=== PATIENT | male | born 1970 | race Caucasian/White ===

== ENCOUNTER 2016-09-27 18:40 | Emergency (ER) | payer OTHER ==
[~2016-09-27] VITALS: Ht 185.4 cm; Wt 95.2 kg
[~2016-09-27 18:40] MED LIST: GABA-113 PO; NVLGI/PEN SC; PRVC/40 PO
[2016-09-27] MEDS ORDERED: INSDGI SC (18:42)
[2016-09-27] MEDS ORDERED: LEVO200T PO (18:42)
[2016-09-27 18:53] VITALS: TEMP 37.5; Ht 185.4 cm; Wt 95.2 kg
[2016-09-27] MEDS ORDERED: AZITHROMYCIN 250 MG TAB PO ONE (19:30)
--- NOTE | 2016-09-27 19:33 | EMERGENCY ROOM VISIT NOTE ---
History Report prepared by Jewels: Devante Greenberg Under the Supervision of: Dr. Jayshree Burciaga M.D. First contact with patient: 19:20 Chief Complaint: RESPIRATORY DISTRESS Stated Complaint: TROUBLE BREATHING, COUGHING Nursing Triage Summary: pt states "I'm dying, my eyes hurt, my head hurts, I'm assuming from sinus pressure, I have trouble breathing and swallowing" Symptoms x 2 weeks. History of Present Illness The patient is a 46 year old male who presents to the Emergency Room with complaints of persistent shortness of breath for the past two weeks. The patient also complains of chest heaviness, coughing, headache, and difficulty swallowing. He has not been sleeping well secondary to his symptoms. The patient has a history of diabetes. He does not smoke. 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 Source of History: patient Onset: two weeks Position: other (respiratory) Quality: other (short of breath) Timing: other (persistent) Associated Symptoms: + chest pain (heaviness), + cough, + headache Review of Systems See HPI for pertinent positives & negatives. A total of 10 systems reviewed and were otherwise negative. Past Medical & Surgical Medical Problems: (1) Diabetes (2) Foot pain (3) Metatarsal bone fracture Surgical Problems: (1) H/O knee surgery Family History No pertinent family history Social History Smoking Status: Never Smoker Drug Use: none Marital Status: Housing Status: lives with family Occupation Status: employed Current/Historical Medications Scheduled Azithromycin (Zithromax), 250 MG PO DAILY Insulin Aspart (Novolog Flexpen), 1 DOSE SC TID Insulin Glargine (Lantus), 35-40 UNITS SC QAM Levothyroxine Sodium (Synthroid), 200 MCG PO QAM Allergies Coded Allergies: Latex1 -Allergic Contact Dermititis (Verified Allergy, Mild, red, 09/27/16) Physical Exam Vital Signs Date Time Temp Pulse Resp B/P Pulse Ox O2 Delivery O2 Flow Rate FiO2 09/27/16 20:26 88 16 121/70 97 09/27/16 18:53 37.5 90 17 133/76 98 Room Air Physical Exam CONSTITUTIONAL: Non-toxic in appearance. HEENT: No icterus, moist mucous membranes NECK: No meningismus, trachea is midline. CARDIOVASCULAR: Regular rate, normal perfusion RESPIRATORY: Unlabored breathing. Clear to auscultation. Lungs are clear. Occasional coughing. GASTROINTESTINAL: Non-tender GENITOURINARY: No flank tenderness MUSCULOSKELETAL: Full range of motion NEUROLOGIC: No acute gross focal deficits. PSYCHIATRIC: Normal affect SKIN: Normal for ethnicity. Medical Decision & Procedures ER Provider Diagnostic Interpretation: X-ray results as stated below per interpretation by me and the radiologist. TWO VIEW CHEST CLINICAL HISTORY: Cough. FINDINGS: PA and lateral chest radiographs are compared to study dated 10/17/2015. The cardiomediastinal silhouette is unremarkable. The lungs and pleural spaces are clear. There is no pneumothorax. The bony thorax appears intact. IMPRESSION: No active disease in the chest. Electronically signed by: Mateus Craig M.D. 09/27/2016 8:01 PM Medications Administered Medications (Trade) Dose Ordered Sig/Sole Route Start Time Stop Time Status Last Admin Dose Admin Azithromycin (Zithromax Tab) 500 mg NOW ONCE PO 09/27/16 19:30 09/27/16 19:31 DC 09/27/16 19:44 500 MG ED Course 1924: Past medical records reviewed. The patient was evaluated in room B8. A complete history and physical examination was performed. 1930: Azithromycin 500 mg PO. 2019: Reevaluated the patient. Explained everything with him. He verbalized understanding and agreement of the treatment plan. The patient is ready for discharge. Medical Decision Differential diagnosis includes pneumonia, bronchitis, upper respiratory infection. 46-year-old presented to the emergency room for evaluation 2 weeks of upper respiratory complaints without fever or other systemic concerns. Lungs were clear chest x-ray negative for pneumonia we discussed likely diagnosis of viral syndrome but given 2 weeks of symptoms Zithromax was ordered. Impression Primary Impression: Bronchitis Scribe Attestation The scribe's documentation has been prepared under my direction and personally reviewed by me in its entirety. I confirm that the note above accurately reflects all work, treatment, procedures, and medical decision making performed by me. Departure Information Dispostion Home / Self-Care Prescriptions Azithromycin (Zithromax) 250 Mg Tab 250 MG PO DAILY, #4 TAB Prov: Jayshree Burciaga MD 09/27/16 Referrals Ana Marion DO (PCP) Forms HOME CARE DOCUMENTATION FORM, IMPORTANT VISIT INFORMATION Patient Instructions A Signature Page, ED Bronchitis Abx Tx, My [facility]
--- NOTE | 2016-09-27 20:02 | DIAGNOSTIC IMAGING REPORT ---
TWO VIEW CHEST CLINICAL HISTORY: Cough. FINDINGS: PA and lateral chest radiographs are compared to study dated 10/17/2015. The cardiomediastinal silhouette is unremarkable. The lungs and pleural spaces are clear. There is no pneumothorax. The bony thorax appears intact. IMPRESSION: No active disease in the chest. Electronically signed by: Mateus Craig M.D. 09/27/2016 8:01 PM
[2016-09-27] MEDS ORDERED: AZIT250T PO (20:22)
[2016-09-27 20:26] VITALS: BP 121/70; PULSE 88; O2SAT 97
== END 2016-09-27 20:27 | disposition home or self-care (01) ==
LOC: C.EDB 18:42
DX: J40 Bronchitis, not specified as acute or chronic (principal); E11.9 Type 2 diabetes mellitus without complications; Z79.4 Long term (current) use of insulin; Z91.040 Latex allergy status

== ENCOUNTER 2017-03-20 21:47 | Emergency (ER) | payer OTHER ==
[~2017-03-20] VITALS: Ht 175.3 cm; Wt 97.0 kg
[~2017-03-20 21:47] MED LIST changes: +AZIT250T PO; -GABA-113 PO; +INSDGI SC; +LEVO200T PO; -PRVC/40 PO
[2017-03-20 21:50] VITALS: BP 160/93; PULSE 88; TEMP 36.7; O2SAT 98; Ht 175.3 cm; Wt 97.0 kg
[2017-03-20] MEDS ORDERED: ALUMINUM/MAGNESIUM SUSP 30 ML UDC PO STA (22:02)
[2017-03-20] MEDS ORDERED: LIDOCAINE HCL 2% VISC SOLN 20 ML UDC PO STA (22:02)
[2017-03-20] MEDS ORDERED: INHALER INH (22:17)
--- NOTE | 2017-03-21 04:08 | EMERGENCY ROOM VISIT NOTE ---
History First contact with patient: 21:54 Chief Complaint: OTHER COMPLAINT Stated Complaint: ALLERGIC REACTION,TROUBLE BREATHING EARLIER History of Present Illness The patient is a 46 year old male who presents to the Emergency Room with complaints of throat discomfort after eating pizza that was sprayed with bug spray by himself on accident. Patient sprayed his house for bugs and ate pizza and then left the pizza and spreads more. He then ate the pizza tonight and felt some discomfort in his throat like heartburn. Patient called poison control and was advised this is safe. He came here for further evaluation and treatment. Patient denies chest pain, dyspnea, fever, chills, facial swelling, abdominal pain, vomiting, diarrhea. Patient states since then he's had a fruit cocktail chicken nuggets and fluids. Review of Systems See HPI for pertinent positives & negatives. A total of 10 systems reviewed and were otherwise negative. Past Medical/Surgical History Medical Problems: (1) Diabetes (2) Foot pain (3) Metatarsal bone fracture Surgical Problems: (1) H/O knee surgery Family History No pertinent family history Social History Smoking Status: Never Smoker Drug Use: none Marital Status: Housing Status: lives with family Occupation Status: employed Current/Historical Medications Scheduled Insulin Aspart (Novolog Flexpen), 1 DOSE SC TID Insulin Glargine (Lantus), 35-40 UNITS SC QAM Levothyroxine Sodium (Synthroid), 200 MCG PO QAM Scheduled PRN [Inhaler], 1-2 PUFFS INH Q4-6H PRN for SOB/Wheezing Allergies Coded Allergies: Latex1 -Allergic Contact Dermititis (Verified Allergy, Mild, red, 03/20/17) Physical Exam Vital Signs Date Time Temp Pulse Resp B/P (MAP) Pulse Ox O2 Delivery O2 Flow Rate FiO2 03/20/17 21:50 36.7 88 18 160/93 98 Room Air Pain Rating (0-10): 0 Physical Exam VITALS: Vitals are noted on the nurse's note and reviewed by myself. Vital signs stable. GENERAL: Pleasant male speaking in full sentences, in no acute distress, nondiaphoretic, well-developed well-nourished. SKIN: The skin was without rashes, erythema, edema, or bruising. There is no tenting of the skin. Capillary reflex less than 2 seconds. HEAD: Normocephalic atraumatic. EARS: External auditory canals clear, tympanic membranes pearly frias without erythema or effusion bilaterally. EYES: Pupils equal round and reactive to light and accommodation. Conjunctivae without injection, sclerae without icterus. Extraocular movements intact. NOSE: Patent, turbinates without inflammation or discharge. MOUTH: Mucous membranes moist. Pharynx without erythema or exudate. Uvula midline. Airway patent. Tongue does not deviate. NECK: Supple without nuchal rigidity. No lymphadenopathy. No thyromegaly. Cervical spine is nontender. No JVD. HEART: Regular rate and rhythm without murmurs gallops or rubs. LUNGS: Clear to auscultation bilaterally without wheezes, rales or rhonchi. No dullness to percussion. No retractions or accessory muscle use. ABDOMEN: Positive bowel sounds x 4. Normal tympanic percussion. Soft, nontender, without masses or organomegaly. Carey sign negative. No guarding or rebound tenderness. MUSCULOSKELETAL: No muscle atrophy, erythema, or edema noted. NEURO: Patient was alert and oriented to person place and time. Normal sensation to light and sharp touch. No focal neurological deficits. Medical Decision & Procedures Medications Administered Medications (Trade) Dose Ordered Sig/Sole Route Start Time Stop Time Status Last Admin Dose Admin Lidocaine HCl (Viscous Lidocaine 2% Soln) 10 ml NOW STAT PO 03/20/17 22:02 03/20/17 22:03 DC 03/20/17 22:13 10 ML Al Hydroxide/Mg Hydroxide (Maalox Susp) 30 ml NOW STAT PO 03/20/17 22:02 03/20/17 22:03 DC 03/20/17 22:13 30 ML ED Course Prior records reviewed and summarized as above. Triage Nursing notes reviewed. Additional history obtained from family The patient's history was concerning for possible chemical exposure Differential diagnosis: Etiologies such as chemical exposure, allergic reaction, reflux, as well as others were entertained.. Physical examination: The physical examination was consistent with mild chemical exposure ER treatment provided: GI cocktail On reassessment the patient felt better. Diagnostics interpreted by me: Consultation: A consultation was placed with the poison control. The case was discussed and diagnostics were reviewed. They state this is a safe substance of the bug spray of Diatomaceous Earth. This appears to be isolated while chemical exposure from inhalation and ingestion. Patient is strongly encouraged to stay at his son's house for next few days and to always wear a mask when he uses aerosol or any other chemicals. He was advised to follow-up family care in a few days or here in the ER sooner for chest pain, difficulty breathing, difficulty swelling, worsening signs or symptoms or as needed. Patient was neurovascularly and neurologically intact. He was swallowing without difficulties. He is well-appearing. He requested to leave. By the evaluation outlined above emergent etiologies such as airway compromise, allergic reaction, as well as others were deemed relatively unlikely. The pt informed about the findings as listed above. All questions were answered and pleased with the treatment. Return instructions were outlined and the patient was discharged in stable condition. Referral: The patient was referred back to primary care physician for follow-up in 2 to 3 days for a recheck of the current condition. Medical Decision As above Impression Primary Impression: Exposure to chemical irritant Departure Information Dispostion Home / Self-Care Condition GOOD Forms WORK / SCHOOL INSTRUCTIONS, HOME CARE DOCUMENTATION FORM, IMPORTANT VISIT INFORMATION Patient Instructions My [employer] Additional Instructions Always wear a mask when using aerosol products. Stay at your son's house for the next 2 days. Follow-up with family care in 2-3 days. Return to ER sooner for chest pain, difficulty swelling, difficulty breathing, worsening signs or symptoms or as needed.
== END 2017-03-20 23:06 | disposition home or self-care (01) ==
LOC: C.EDB 21:48 → C.EDA 23:06
DX: Z77.098 Contact with and (suspected) exposure to other hazardous, chiefly nonmedicinal, chemicals (principal); E11.9 Type 2 diabetes mellitus without complications; Z87.81 Personal history of (healed) traumatic fracture; Z98.890 Other specified postprocedural states; Z79.4 Long term (current) use of insulin; Z79.899 Other long term (current) drug therapy; Z91.040 Latex allergy status

== ENCOUNTER 2017-12-13 20:17 | Emergency (ER) | payer OTHER ==
[~2017-12-13] VITALS: Ht 185.4 cm; Wt 99.1 kg
[~2017-12-13 20:17] MED LIST changes: -AZIT250T PO; +INHALER INH
[2017-12-13 20:19] VITALS: TEMP 36.4; Ht 185.4 cm; Wt 99.1 kg
[2017-12-13] MEDS ORDERED: PROPARACAINE HCL 0.5% OP SOLN 15 ML BTL ONE (20:27)
[2017-12-13] MEDS ORDERED: ERYTHROMYCIN OP OINT 5 MG/GM 3.5 GM TUBE OP ONE (20:45)
[2017-12-13 20:59] VITALS: BP 145/78; PULSE 70; O2SAT 99
--- NOTE | 2017-12-13 21:50 | EMERGENCY ROOM VISIT NOTE ---
History Report prepared by Jewels: Tony Albarran Under the Supervision of: Dr. Nelson Figueroa M.D. First contact with patient: 20:22 Chief Complaint: EYE ASSESSMENT Stated Complaint: PIECE OF METAL IN LEFT EYE - WC History of Present Illness The patient is a 47 year old male who presents to the Emergency Room for an eye assessment due to sudden left eye pain occurring around 1500 today. 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 He notes that there was no direct blow to the eye. He states that he tried flushing it a few times, and it did not help with the pain. The patient notes that he has had metal in his eye before, so he wanted to come in to the ED for evaluation. The patient denies any headache, visual changes, swelling or discharge. He reports that he wears glasses. Source of History: patient Onset: 1500 Position: eye (left) Quality: other (foreign body) Timing: other (sudden) Associated Symptoms: No headache Review of Systems See HPI for pertinent positives and negatives. A total of 6 systems were reviewed and were otherwise negative. Past Medical & Surgical Medical Problems: (1) Diabetes (2) Foot pain (3) Metatarsal bone fracture Surgical Problems: (1) H/O knee surgery Family History No pertinent family history Social History Smoking Status: Never Smoker Drug Use: none Marital Status: Housing Status: lives with family Occupation Status: employed Current/Historical Medications Scheduled Insulin Aspart (Novolog Flexpen), 1 DOSE SC TID Insulin Glargine (Lantus), 35-40 UNITS SC QAM Levothyroxine Sodium (Synthroid), 200 MCG PO QAM Scheduled PRN [Inhaler], 1-2 PUFFS INH Q4-6H PRN for SOB/Wheezing Allergies Coded Allergies: Latex1 -Allergic Contact Dermititis (Verified Allergy, Mild, red, 03/20/17) Physical Exam Vital Signs Date Time Temp Pulse Resp B/P (MAP) Pulse Ox O2 Delivery O2 Flow Rate FiO2 12/13/17 20:59 70 20 145/78 99 12/13/17 20:19 36.4 75 18 96 Room Air Physical Exam GENERAL: Awake, alert, well-appearing, in no distress HENT: Normocephalic, atraumatic. Oropharynx unremarkable. EYES: See slit lamp procedure. NEURO: Normal sensorium. No sensory or motor deficits noted. SKIN: No rash or jaundice noted. Medical Decision & Procedures Medications Administered Medications (Trade) Dose Ordered Sig/Sole Route Start Time Stop Time Status Last Admin Dose Admin Erythromycin (Erythromycin Oph Oint) 1 appln NOW ONCE OP 12/13/17 20:45 12/13/17 20:46 DC 12/13/17 20:57 1 APPLN Procedure Slit Lamp Examination Indication: suspected foreign body The left eye was prepped with topical proparacaine. Slit lamp examination was performed in the standard fashion. Cornea appeared clear. Anterior chamber normal. Scleral injection minimally present. Yellowish clear discharge present. Fluorescein examination performed and revealed there was a small metallic foreign body floating near lacrimal duct, no scleral or corneal foreign bodies, no ulcerations, and no dendrites. No foreign bodies noted. Negative Robb sign. The patient tolerated the procedure well without complication. ED Course 2021: The patient was evaluated in room D4. A complete history and physical exam was performed. I performed a Slit Lamp Procedure. The patient will be discharged home. 2026: Proparacaine HCl OP 2044: Erythromycin 1 appln OP Medical Decision Triage Nursing notes reviewed and agree them. The patient's history was concerning for eye complaints. Differential diagnosis: Etiologies such as~a trauma, foreign body, corneal abrasion, corneal ulcer, globe penetration, hyphema, hypopyon, and orbital cellulitis, periorbital cellulitis, as well as others were entertained. Physical examination findings: As above.~ Slit-lamp examination revealed a floating metallic foreign body that was easily removed with a cotton tip applicator. Cornea and anterior chambers were normal. Pupil normal. Floor seen otherwise negative. Visual acuity is somewhat diminished in that eye but the patient notes he is using his old glasses. ER treatment provided: Proparacaine ophthalmic solution Erythromycin eye ointment On reassessment the patient felt better. Diagnostics interpretation by me: Imaging studies: Deferred The patient had a foreign body removed. He was doing well after the proparacaine drops. Lids were flipped and no retained foreign bodies were seen. There is no sign of corneal involvement. He did have some yellowish discharge mixed with his tears. He was placed on Ilotycin. Lids were unremarkable. By the evaluation outlined above emergent etiologies such as~trauma, corneal abrasion, corneal ulcer, globe penetration, hyphema, hypopyon, and orbital cellulitis, periorbital cellulitis, as well as others were deemed relatively unlikely. The patient was informed about the findings as listed above. All questions were answered and he was pleased with the treatment. Return instructions were outlined and the patient was discharged in stable condition. Outpatient prescription management: Ilotycin ophthalmic ointment given to go Referral: The patient was referred to his doctor for follow-up for a recheck of the current condition. Medication Reconcilliation Current Medication List: was personally reviewed by me Impression Primary Impression: Left eye pain Additional Impression: Foreign body of left eye Scribe Attestation The scribe's documentation has been prepared under my direction and personally reviewed by me in its entirety. I confirm that the note above accurately reflects all work, treatment, procedures, and medical decision making performed by me. Departure Information Dispostion Home / Self-Care Referrals Scout, Ashley Vega (PCP) Forms HOME CARE DOCUMENTATION FORM, IMPORTANT VISIT INFORMATION, WORK / SCHOOL INSTRUCTIONS Patient Instructions My [facility] Additional Instructions Erythromycin eye ointment: apply a 1/4" ribbon to the affected eye(s) four times a day for the next three days. Wash your hands well, put the ointment on your clean fingertip. Pull down the lower eye lid and apply it, blink the ointment into the eye. Acetaminophen(Tylenol) may be used for fever or pain. Use 1000mg every six hours as needed. Avoid using more than 4000mg in a 24 hour period. Cool compresses for 20 minutes at a time four times daily for 2-3 days. Wash your hands after touching your face or eyes. Minimize contact with others while your eyes are affected. Avoid bright lights today, wear sun glasses. Return to the ER for facial swelling, worsening vision, severe eye pain, fevers or as needed. Problem Qualifiers
== END 2017-12-13 21:02 | disposition home or self-care (01) ==
LOC: C.EDB 20:19 → C.EDD 21:02
DX: T15.02XA Foreign body in cornea, left eye, initial encounter (principal); X58.XXXA Exposure to other specified factors, initial encounter; W31.1XXA Contact with metalworking machines, initial encounter; Y99.0 Civilian activity done for income or pay; E11.9 Type 2 diabetes mellitus without complications; Z79.4 Long term (current) use of insulin; Z91.040 Latex allergy status

== ENCOUNTER 2019-04-23 16:50 | Inpatient (IN) ==
[2019-04-23] MEDS ORDERED: SODIUM CHLORIDE 0.9% 1000ML 1,000 ML IV ONE (17:08)
[2019-04-23] MEDS ORDERED: ALBUT/IPRATROP 3MG/0.5MG NEB 3 ML VIAL NEB STA (17:08)
[2019-04-23] MEDS ORDERED: NovoLIN-R INSULIN PER UNIT CHARGE IV STA (17:08)
[2019-04-23] MEDS ORDERED: SODIUM CHLORIDE 0.9% 1000ML 1,000 ML IV STA (17:08)
[2019-04-23 17:24] LABS: Hematocrit (blood only) 50.3 % (42-52); Hemoglobin 16.9 g/dL (14.0-18.0); Mean Corpuscular Hgb Conc 33.6 g/dL (32-36); Mean Platelet Volume 11.7 fL (7.4-10.4); Platelet Count 375 K/uL (130-400); RDW Coefficient of Variation 13.4 % (11.5-14.5); RDW Standard Deviation 46.2 fL (36.4-46.3); Red Blood Count 5.41 M/uL (4.7-6.1)
--- NOTE | 2019-04-23 17:28 | XRay Report ---
SINGLE VIEW CHEST CLINICAL HISTORY: Generalized weakness. FINDINGS: An AP, portable, upright chest radiograph is compared to chest x-ray and chest CT dated 01/26. The cardiomediastinal silhouette is unremarkable. The lungs and pleural spaces are clear. No pneumothorax is seen. The bony thorax is grossly intact. IMPRESSION: No active disease in the chest. Electronically signed by: Mateus Craig M.D. 04/23/2019 5:26 PM
--- NOTE | 2019-04-23 17:42 | Emergency Department Note ---
Entered by Lindsey Temple acting as a scribe for Mateus De Los Santos MD History of Present Illness General Chief complaint: Hyperglycemia Stated complaint: NAUSEA,WEAK,SOB,VISION ISSUE Time Seen by Provider: 04/23/19 17:00 Source: patient History of Present Illness Onset (ago): hour(s) 8 Location: head (Vomiting) Pain Consistency: + other (Persistent) Maximum Pain Intensity: 0 Quality: + other (Vomiting) Relieved By: not by other (Water, Gatorade) Associated symptoms: + nausea/vomiting, + shortness of breath and + other (Positive diarrhea, off balance, dizzy. Negative hematemesis,abdominal pain. ) Treatments prior to arrival: other (Water,Gatorade) The patient is a 48 year old male presenting to the Emergency Department complaining of persistent vomiting starting 8 hours ago. The patient reports that he woke up this morning with nausea and began vomiting. He states that he has been experiencing diarrhea. He explains that he feels off balance and is dizzy. He notes that he is short of breath. He adds that he has been drinking a lot of water and Gatorade. The patient reports that he tried to eat toast [employer] but that he vomited it back up. He states that he didnt eat breakfast yesterday but ate Wendys later. He explains that after he ate Wendys he got heart burn. He notes that he is a diabetic and his current blood sugar is 596. He denies hematemesis and abdominal pain. Home Medications Home Medications Medication Instructions Recorded Confirmed Type atorvastatin 10 mg PO DAILY 02/15/19 04/23/19 History cyanocobalamin (vitamin B-12) 1,000 mcg PO DAILY 02/15/19 04/23/19 History [Vitamin B-12] duloxetine 60 mg PO DAILY 02/15/19 04/23/19 History ergocalciferol (vitamin D2) 50,000 unit PO WK 02/15/19 04/23/19 History [Vitamin D2] etodolac 500 mg PO BID 02/15/19 04/23/19 History insulin aspart U-100 [Novolog 60 unit SUBCUT BIDM 02/15/19 04/23/19 History Flexpen U-100 Insulin] insulin glargine [Lantus Solostar 50 unit SUBCUT QAM 02/15/19 04/23/19 History U-100 Insulin] levothyroxine 100 mcg PO DAILY 02/15/19 04/23/19 History levothyroxine 200 mcg PO DAILY 02/15/19 04/23/19 History albuterol sulfate [Ventolin HFA] 1 - 2 puffs INHALATION Q4H PRN 04/23/19 04/23/19 History Allergies Allergy/AdvReac Type Severity Reaction Status Date / Time latex Allergy Mild REDDENED Verified 04/23/19 17:27 SKIN ON CONTACT Past Med/Surg History Medical History Janett's thyroiditis (Acute) Diabetic peripheral neuropathy associated with type 2 diabetes mellitus (Acute) Neuropathy (Chronic) Hyperthyroidism (Chronic) HLD (hyperlipidemia) (Chronic) HTN (hypertension) (Chronic) Asthma (Chronic) Diabetes (Chronic) Surgical History H/O knee surgery (Resolved) Family History Other Diabetes Social History Preferred Language: Kenyan Feels Safe at Home: Yes Smoking Status: Never smoker Review of Systems See HPI for pertinent positives & negatives. and A total of 10 systems reviewed and were otherwise negative Physical Exam Vital Signs Vital Signs - 24 hr 04/23/19 16:54 04/23/19 17:09 04/23/19 17:15 Temperature 36.6 C Temperature Source Oral Sepsis Recent Fever Within 48 Hours No Sepsis New/Unexplained Change in Mental Status No Sepsis Action Taken by Nursing No Action Required Pulse Rate 118 H 115 H 116 H Pulse Rate [Finger] Pulse Rhythm Regular Respiratory Rate 22 24 23 Respiratory Effort / Characteristics Non-Labored Respiratory Depth Normal Blood Pressure 129/64 164/97 H Blood Pressure Mean 85 119 Blood Pressure Position Sitting Pulse Oximetry 99 96 Oxygen Delivery Method Room Air Room Air 04/23/19 17:16 04/23/19 17:20 04/23/19 17:30 Temperature Temperature Source Sepsis Recent Fever Within 48 Hours Sepsis New/Unexplained Change in Mental Status Sepsis Action Taken by Nursing Pulse Rate 111 H 112 H Pulse Rate [Finger] Pulse Rhythm Respiratory Rate 24 24 Respiratory Effort / Characteristics Respiratory Depth Blood Pressure Blood Pressure Mean Blood Pressure Position Pulse Oximetry Oxygen Delivery Method Room Air 04/23/19 17:44 04/23/19 18:00 04/23/19 18:09 Temperature Temperature Source Sepsis Recent Fever Within 48 Hours Sepsis New/Unexplained Change in Mental Status Sepsis Action Taken by Nursing Pulse Rate 121 H 120 H Pulse Rate [Finger] 120 H Pulse Rhythm Respiratory Rate 16 18 18 Respiratory Effort / Characteristics Non-Labored Spontaneous Respiratory Depth Blood Pressure 166/79 H 166/79 H Blood Pressure Mean 108 108 Blood Pressure Position Pulse Oximetry 100 Oxygen Delivery Method Room Air 04/23/19 18:15 04/23/19 18:30 04/23/19 18:40 Temperature Temperature Source Sepsis Recent Fever Within 48 Hours Sepsis New/Unexplained Change in Mental Status Sepsis Action Taken by Nursing Pulse Rate 123 H 117 H 120 H Pulse Rate [Finger] Pulse Rhythm Respiratory Rate 22 19 20 Respiratory Effort / Characteristics Respiratory Depth Blood Pressure 155/111 H 157/73 H 188/105 H Blood Pressure Mean 125 101 132 Blood Pressure Position Pulse Oximetry Oxygen Delivery Method 04/23/19 18:45 04/23/19 19:00 Temperature Temperature Source Sepsis Recent Fever Within 48 Hours Sepsis New/Unexplained Change in Mental Status Sepsis Action Taken by Nursing Pulse Rate 122 H 122 H Pulse Rate [Finger] Pulse Rhythm Respiratory Rate 20 22 Respiratory Effort / Characteristics Respiratory Depth Blood Pressure 161/79 H 153/77 H Blood Pressure Mean 106 102 Blood Pressure Position Pulse Oximetry Oxygen Delivery Method GENERAL: Patient is in mild distress. HEENT: No acute trauma, normocephalic atraumatic, mucous membranes dry, no nasal congestion, no scleral icterus. NECK: No stridor, no adenopathy, no meningismus, trachea is midline. LUNGS: Clear to auscultation bilaterally, no wheeze, no rhonchi, breath sounds equal. Increased respiratory rate. HEART: Tachycardic rate with a regular rhythm. No murmurs. ABDOMEN: Soft, nontender, bowel sounds positive, no hernias, no peritonitis. EXTREMITIES: No cyanosis or edema, full range of motion of all the joints without pain or difficulty, no signs for acute trauma. NEUROLOGIC: Oriented x 3, no acute motor or sensory deficits, no focal weakness. SKIN: No rash, no jaundice, no diaphoresis. Course 1703: The patient was evaluated in room A12B, and a complete history and physical examination were performed. 1812: I reevaluated the patient at this time. He reports that he is feeling slightly better but still nauseated. He is still tachycardic. 1821: I discussed the patient's case with Dr. Quinteros - Lei Maker. He will evaluate the patient for further management. 1834: I discussed the patient's case with Dr.Tussey Moses [facility] hospitalist. 1836: I updated the patient at this time. Consultations Consultation #1: I discussed the patient's case with Dr. Quinteros - Lei Maker. He will evaluate the patient for further management. Time: 18:21 Consultation #2: I discussed the patient's case with Dr.Tussey Moses [facility] hospitalist. Time: 18:34 Administered Medications Insulin Human Regular 250 (units/ Sodium Chloride) 250 mls @ 3.5 mls/hr IV .Q24H POWER; Protocol Stop: 05/23/19 18:14 Last Admin: 04/23/19 18:36 Dose: 3.5 units/hr, 3.5 mls/hr Documented by: [id number] Cosigned by: [id number] Sodium Chloride (Nss 1000ml) 1,000 mls @ 150 mls/hr IV .Q6H40M POWER Stop: 05/23/19 18:44 Last Admin: 04/23/19 18:37 Dose: 150 mls/hr Documented by: [id number] Discontinued Medications Albuterol (Duoneb) 3 ml NEB NOW STA Stop: 04/23/19 17:09 Last Admin: 04/23/19 17:40 Dose: 3 ml Documented by: [id number] Sodium Chloride (Nss 1000ml) 1,000 mls @ 999 mls/hr IV .Q1H1M STA Stop: 04/23/19 18:08 Last Infusion: 04/23/19 18:28 Dose: 0 mls/hr Documented by: [id number] Admin: 04/23/19 17:22 Dose: 999 mls/hr Documented by: [id number] Sodium Chloride (Nss 1000ml) 1,000 mls @ 999 mls/hr IV .Q1H1M ONE Stop: 04/23/19 18:08 Last Infusion: 04/23/19 18:27 Dose: 0 mls/hr Documented by: [id number] Admin: 04/23/19 17:23 Dose: 999 mls/hr Documented by: [id number] Sodium Chloride (Nss 1000ml) 500 mls @ 999 mls/hr IV .Q31M ONE Stop: 04/23/19 18:45 Last Infusion: 04/23/19 19:15 Dose: 0 mls/hr Documented by: [id number] Admin: 04/23/19 18:27 Dose: 999 mls/hr Documented by: [id number] Insulin Human Regular 3.5 (units/ Syringe) 3.5 mls @ 30 mls/min IV NOW ONE Stop: 04/23/19 18:31 Last Admin: 04/23/19 18:36 Dose: 30 mls/min Documented by: [id number] Cosigned by: [id number] Insulin Human Regular (Novolin R U-100 Per Unit) 10 units IV NOW STA Stop: 04/23/19 17:09 Last Admin: 04/23/19 17:25 Dose: 10 units Documented by: [id number] Cosigned by: [id number] Miscellaneous (Insulin Protocol Severe Stress) 1 ea N/A ONE ONE Stop: 04/23/19 18:08 Last Admin: 04/23/19 18:37 Dose: Not Given Documented by: [id number] Ondansetron HCl (Zofran) Confirm Administered Dose 4 mg .ROUTE .STK-MED ONE Stop: 04/23/19 18:16 Last Admin: 04/23/19 18:18 Dose: 4 mg Documented by: [id number] Ondansetron HCl (Zofran) 4 mg IV NOW STA Stop: 04/23/19 18:16 Last Admin: 04/23/19 18:17 Dose: Not Given Documented by: [id number] Medical Decision Making Differential Diagnosis Differentials include DKA, food borne illness, viral illness, renal failure, dehydration, hyperglycemia, electrolyte abnormality, UTI and pneumonia amongst others. Medical Records Attestation: I reviewed the patient's medical records. Home Medications Current Medication List: was personally reviewed by me Laboratory Data Attestation: I reviewed the patient's lab results. Result diagrams: 04/23/19 17:13 04/23/19 17:13 Lab Results 04/23/19 04/23/19 04/23/19 Range/Units 17:00 17:13 17:13 WBC 27.30 H (4.8-10.8) K/uL RBC 5.41 (4.7-6.1) M/uL Hgb 16.9 (14.0-18.0) g/dL Hct 50.3 (42-52) % MCV 93.0 (80-100) fL MCH 31.2 (25-34) pg MCHC 33.6 (32-36) g/dL RDW Std Deviation 46.2 (36.4-46.3) fL RDW Coeff of Brittany 13.4 (11.5-14.5) % Plt Count 375 (130-400) K/uL MPV 11.7 H (7.4-10.4) fL Immature Gran % (Auto) 0.9 % Neut % (Auto) 85.0 % Lymph % (Auto) 9.4 % Carver % (Auto) 4.6 % Eos % (Auto) 0.0 % Baso % (Auto) 0.1 % Immature Gran # (Auto) 0.25 H (0.00-0.02) K/uL Neut # (Auto) 23.17 H (1.4-6.5) K/uL Lymph # (Auto) 2.57 (1.2-3.4) K/uL Carver # (Auto) 1.26 H (0.11-0.59) K/uL Eos # (Auto) 0.01 (0-0.5) K/uL Baso # (Auto) 0.04 (0-0.2) K/uL ABG pH ABG pCO2 ABG pO2 ABG HCO3 ABG O2 Saturation ABG Base Excess Abhishek Test Barometric Pressure Oxygen Given Sodium 127 L (136-145) mmol/L Potassium 6.4 H* (3.5-5.1) mmol/L Chloride 92 L (98-107) mmol/L Carbon Dioxide 6 L* (21-32) mmol/L Anion Gap 30.0 H (3-11) BUN 27 H (7-18) mg/dl Creatinine 1.91 H (0.6-1.4) mg/dl Est Cr Clr Drug Dosing 52.3 ml/min Est GFR ( Amer) 46.3 Est GFR (Non-Af Amer) 40.0 BUN/Creatinine Ratio 14.0 (10-20) Glucose 547 H* (70-99) mg/dl POC Glucose 596 H* (70-99) Lactate (0.4-2.0) mmol/L Calcium 8.7 (8.5-10.1) mg/dl Magnesium 2.7 H (1.8-2.4) mg/dl Total Bilirubin 0.5 (0.2-1) mg/dl AST 30 (15-37) U/L ALT 47 (12-78) U/L Alkaline Phosphatase 162 H (45-117) U/L Total Creatine Kinase 403 H (39-308) U/L Troponin I < 0.015 (0-0.045) ng/ml Total Protein 8.0 (6.4-8.2) gm/dl Albumin 4.1 (3.4-5.0) gm/dl Globulin 3.9 (2.5-4.0) gm/dl Albumin/Globulin Ratio 1.0 (0.9-2) Beta-Hydroxybutyric Acd 136.10 H (0.2-2.81) mg/dl TSH 0.475 (0.300-4.500) uIu/ml Specimen Hemolysis Urine Color Urine Appearance (Clear) Urine pH (4.5-7.5) Ur Specific [place] (1.000-1.030) Urine Protein (Negative) Urine Glucose (UA) (Negative) Urine Ketones (Negative) Urine Blood (Negative) Urine Nitrite (Negative) Urine Bilirubin (Negative) Urine Urobilinogen (Negative) Ur Leukocyte Esterase (Negative) Urine WBC (Auto) (0-5) /hpf Urine RBC (Auto) (0-4) /hpf U Hyaline Cast (Auto) (0-5) /lpf U Epithel Cells (Auto) (0-5) /lpf Urine Bacteria (Auto) (Negative) 04/23/19 04/23/19 04/23/19 Range/Units 17:13 18:05 18:17 WBC (4.8-10.8) K/uL RBC (4.7-6.1) M/uL Hgb (14.0-18.0) g/dL Hct (42-52) % MCV (80-100) fL MCH (25-34) pg MCHC (32-36) g/dL RDW Std Deviation (36.4-46.3) fL RDW Coeff of Brittany (11.5-14.5) % Plt Count (130-400) K/uL MPV (7.4-10.4) fL Immature Gran % (Auto) % Neut % (Auto) % Lymph % (Auto) % Carver % (Auto) % Eos % (Auto) % Baso % (Auto) % Immature Gran # (Auto) (0.00-0.02) K/uL Neut # (Auto) (1.4-6.5) K/uL Lymph # (Auto) (1.2-3.4) K/uL Carver # (Auto) (0.11-0.59) K/uL Eos # (Auto) (0-0.5) K/uL Baso # (Auto) (0-0.2) K/uL ABG pH ABG pCO2 ABG pO2 ABG HCO3 ABG O2 Saturation ABG Base Excess Abhishek Test Barometric Pressure Oxygen Given Sodium (136-145) mmol/L Potassium (3.5-5.1) mmol/L Chloride (98-107) mmol/L Carbon Dioxide (21-32) mmol/L Anion Gap (3-11) BUN (7-18) mg/dl Creatinine (0.6-1.4) mg/dl Est Cr Clr Drug Dosing ml/min Est GFR ( Amer) Est GFR (Non-Af Amer) BUN/Creatinine Ratio (10-20) Glucose (70-99) mg/dl POC Glucose 522 H* (70-99) Lactate 2.5 H* (0.4-2.0) mmol/L Calcium (8.5-10.1) mg/dl Magnesium (1.8-2.4) mg/dl Total Bilirubin (0.2-1) mg/dl AST (15-37) U/L ALT (12-78) U/L Alkaline Phosphatase (45-117) U/L Total Creatine Kinase (39-308) U/L Troponin I (0-0.045) ng/ml Total Protein (6.4-8.2) gm/dl Albumin (3.4-5.0) gm/dl Globulin (2.5-4.0) gm/dl Albumin/Globulin Ratio (0.9-2) Beta-Hydroxybutyric Acd (0.2-2.81) mg/dl TSH (0.300-4.500) uIu/ml Specimen Hemolysis Urine Color Yellow Urine Appearance Clear (Clear) Urine pH 5.0 (4.5-7.5) Ur Specific [place] 1.029 (1.000-1.030) Urine Protein 1+ H (Negative) Urine Glucose (UA) 3+ H (Negative) Urine Ketones 4+ H (Negative) Urine Blood 2+ H (Negative) Urine Nitrite Negative (Negative) Urine Bilirubin Negative (Negative) Urine Urobilinogen Negative (Negative) Ur Leukocyte Esterase Negative (Negative) Urine WBC (Auto) 0 (0-5) /hpf Urine RBC (Auto) 0-4 (0-4) /hpf U Hyaline Cast (Auto) 1-5 (0-5) /lpf U Epithel Cells (Auto) 5-10 H (0-5) /lpf Urine Bacteria (Auto) Negative (Negative) 04/23/19 04/23/19 04/23/19 Range/Units 18:35 19:00 19:16 WBC (4.8-10.8) K/uL RBC (4.7-6.1) M/uL Hgb (14.0-18.0) g/dL Hct (42-52) % MCV (80-100) fL MCH (25-34) pg MCHC (32-36) g/dL RDW Std Deviation (36.4-46.3) fL RDW Coeff of Brittany (11.5-14.5) % Plt Count (130-400) K/uL MPV (7.4-10.4) fL Immature Gran % (Auto) % Neut % (Auto) % Lymph % (Auto) % Carver % (Auto) % Eos % (Auto) % Baso % (Auto) % Immature Gran # (Auto) (0.00-0.02) K/uL Neut # (Auto) (1.4-6.5) K/uL Lymph # (Auto) (1.2-3.4) K/uL Carver # (Auto) (0.11-0.59) K/uL Eos # (Auto) (0-0.5) K/uL Baso # (Auto) (0-0.2) K/uL ABG pH Cancelled 6.99 L* ABG pCO2 Cancelled 17 L ABG pO2 Cancelled 123 H ABG HCO3 Cancelled 4 L ABG O2 Saturation Cancelled 97.5 H ABG Base Excess Cancelled -26.0 L Abhishek Test Cancelled POS Barometric Pressure Cancelled Oxygen Given Cancelled ROOM AIR Sodium (136-145) mmol/L Potassium (3.5-5.1) mmol/L Chloride (98-107) mmol/L Carbon Dioxide (21-32) mmol/L Anion Gap (3-11) BUN (7-18) mg/dl Creatinine (0.6-1.4) mg/dl Est Cr Clr Drug Dosing ml/min Est GFR ( Amer) Est GFR (Non-Af Amer) BUN/Creatinine Ratio (10-20) Glucose (70-99) mg/dl POC Glucose 384 H* (70-99) Lactate (0.4-2.0) mmol/L Calcium (8.5-10.1) mg/dl Magnesium (1.8-2.4) mg/dl Total Bilirubin (0.2-1) mg/dl AST (15-37) U/L ALT (12-78) U/L Alkaline Phosphatase (45-117) U/L Total Creatine Kinase (39-308) U/L Troponin I (0-0.045) ng/ml Total Protein (6.4-8.2) gm/dl Albumin (3.4-5.0) gm/dl Globulin (2.5-4.0) gm/dl Albumin/Globulin Ratio (0.9-2) Beta-Hydroxybutyric Acd (0.2-2.81) mg/dl TSH (0.300-4.500) uIu/ml Specimen Hemolysis Urine Color Urine Appearance (Clear) Urine pH (4.5-7.5) Ur Specific [place] (1.000-1.030) Urine Protein (Negative) Urine Glucose (UA) (Negative) Urine Ketones (Negative) Urine Blood (Negative) Urine Nitrite (Negative) Urine Bilirubin (Negative) Urine Urobilinogen (Negative) Ur Leukocyte Esterase (Negative) Urine WBC (Auto) (0-5) /hpf Urine RBC (Auto) (0-4) /hpf U Hyaline Cast (Auto) (0-5) /lpf U Epithel Cells (Auto) (0-5) /lpf Urine Bacteria (Auto) (Negative) Imaging Data Radiologist's Impression: Radiology results as stated below per my review and the radiologist's interpretation: SINGLE VIEW CHEST CLINICAL HISTORY: Generalized weakness. FINDINGS: An AP, portable, upright chest radiograph is compared to chest x-ray and chest CT dated 02/15/2019. The cardiomediastinal silhouette is unremarkable. The lungs and pleural spaces are clear. No pneumothorax is seen. The bony thorax is grossly intact. IMPRESSION: No active disease in the chest. Electronically signed by: Mateus Craig M.D. 04/23/2019 5:26 PM ECG Data Attestation: I personally reviewed and interpreted this ECG as follows: Indication: SOB/dyspnea and vomiting Rate (beats per minute): 119 Rhythm: sinus tachycardia Findings: no PVC and no ST elevation Blood Pressure Blood Pressure Findings: Elevated blood pressure Blood Pressure Disposition: further management by hospitalist ELLIE Narrative There is a significant leukocytosis at 27,000, this is consistent with infection or the stress of his situation. ABG shows a marked acidosis with a pH of 6.9. This acidosis appeared to be metabolic. Renal panel testing suggests acidosis. His sodium was low at 127, likely from the higher blood sugar. Potassium was high at 6.4. Creatinine was elevated consistent with dehydration. Glucose was in the 500 range. Lactic acid level was somewhat elevated at 2.5. This elevation to the lactic acid is likely from dehydration. There was an elevation to the alkaline phosphatase. Total creatinine kinase was elevated at 403. Patient appeared to be in a euthyroid state. EKG shows a sinus tachycardia, no acute ischemia. Cardiac enzyme testing x1 is not consistent with acute cardiac injury. Chest film does not show pneumonia or CHF. The patient presents quite ill. He is in DKA. He is quite acidotic and has a high potassium. He is significantly dehydrated with some acute kidney injury. The patient was aggressively managed. He received 2 L of IV saline and then a 500 cc saline bolus. He was placed on a saline drip at 150 cc an hour. He was given a DuoNeb to help with the higher potassium. He received a bolus of IV insulin to help with the high potassium and high sugar. He was eventually placed on an insulin drip. Patient received Zofran IV for nausea. The patient is in need of a hospital stay. He is quite ill with DKA, he understands his findings. I discussed things with case management. I did speak with the ICU attending control specialist, I spoke with the on-call hospitalist. I did check on the patient several times, he does seem improved. He is currently resting. He is being transferred to the intensive care unit. Impression & Plan DKA (diabetic ketoacidoses), Hyperkalemia, Dehydration, Tachycardia, Vomiting, Diarrhea Critical Care Time Critical Care Time: Yes Total Critical Care Time: 50 I have personally spent 50 minutes of critical care time in the direct management of this patient. This includes bedside care, interpretation of diagnostic studies, and testing, discussion with consultants, patient, and family members, and other required patient management activities. This 50 minutes is in excess of all separately billable procedures. Discharge Plan Visit Data Chief Complaint: Hyperglycemia Stated Complaint: NAUSEA,WEAK,SOB,VISION ISSUE ED Provider: Mateus De Los Santos Discharge Problem: DKA (diabetic ketoacidoses), Hyperkalemia, Dehydration, Tachycardia, Vomiting, Diarrhea Patient Disposition: Being Evaluated by Hospitalist Forms Stand Alone Forms: My [facility] Prescriptions Prescriptions: No Action atorvastatin 10 mg Tablet 10 mg PO DAILY RF: 0 cyanocobalamin (vitamin B-12) [Vitamin B-12] 1,000 mcg Tablet 1,000 mcg PO DAILY RF: 0 levothyroxine 100 mcg Tablet 100 mcg PO DAILY RF: 0 levothyroxine 200 mcg Tablet 200 mcg PO DAILY RF: 0 ergocalciferol (vitamin D2) [Vitamin D2] 50,000 unit Capsule 50,000 unit PO WK RF: 0 etodolac 500 mg Tablet 500 mg PO BID RF: 0 Novolog Flexpen U-100 Insulin 100 unit/mL (3 mL) Insulin Pen 60 unit SUBCUT BIDM RF: 0 duloxetine 60 mg Capsule,Delayed Release(Dr/Ec) 60 mg PO DAILY RF: 0 Lantus Solostar U-100 Insulin 100 unit/mL (3 mL) Insulin Pen 50 unit SUBCUT QAM RF: 0 albuterol sulfate [Ventolin HFA] 90 mcg/actuation HFA aerosol inhaler 1 - 2 puffs INHALATION Q4H PRN (Reason: shortness of breath or wheezing) RF: 0 Referrals Referrals: Liam Schroeder III, CRNP [Primary Care Provider] - Discharge Problem: DKA (diabetic ketoacidoses) Qualifiers: Diabetes mellitus type: type 1 Diabetes mellitus complication detail: without coma Qualified Code(s): E10.10 - Type 1 diabetes mellitus with ketoacidosis without coma Vomiting Qualifiers: Vomiting type: unspecified Vomiting Intractability: non-intractable Nausea presence: with nausea Qualified Code(s): R11.2 - Nausea with vomiting, unspecified Diarrhea Qualifiers: Diarrhea type: unspecified type Qualified Code(s): R19.7 - Diarrhea, unspecified The scribe's documentation has been prepared under my direction and personally reviewed by me in its entirety. I confirm that the note above accurately reflects all work, treatment, procedures, and medical decision making performed by me.
[2019-04-23 17:47] LABS: Appearance Urine Clear (Clear); Bacteria Urine Automated Negative (Negative); Basophils # (auto) 0.04 K/uL (0-0.2); Basophils % (auto) 0.1 %; Bilirubin Urine Negative (Negative); Blood Urine 2+ (Negative); Color Urine Yellow; Eosinophils # (auto) 0.01 K/uL (0-0.5); Glucose Urine UA 3+ (Negative); Immature Granulocytes # (auto) 0.25 K/uL (0.00-0.02); Immature Granulocytes % (auto) 0.9 %; Leukocyte Esterase Urine Negative (Negative); Lymphocytes # (auto) 2.57 K/uL (1.2-3.4); Lymphocytes % (auto) 9.4 %; Monocytes # (auto) 1.26 K/uL (0.11-0.59); Monocytes % (auto) 4.6 %; Neutrophils # (auto) 23.17 K/uL (1.4-6.5); Nitrite Urine Negative (Negative); Protein Urine 1+ (Negative); RBC Urine Automated 0-4 /hpf (0-4); Specific Gravity Urine 1.029 (1.000-1.030); Urobilinogen Urine Negative (Negative); WBC Urine Automated 0 /hpf (0-5)
[2019-04-23 17:49] LABS: Ketones Urine 4+ (Negative)
[2019-04-23 17:57] LABS: Alanine Aminotransferase 47 U/L (12-78); Albumin Level 4.1 gm/dl (3.4-5.0); Alkaline Phosphatase 162 U/L (45-117); Aspartate Aminotransferase 30 U/L (15-37); Bilirubin,Total 0.5 mg/dl (0.2-1); Blood Urea Nitrogen 27 mg/dl (7-18); Calcium 8.7 mg/dl (8.5-10.1); Carbon Dioxide 6 mmol/L (21-32); Chloride 92 mmol/L (98-107); Creatine Kinase 403 U/L (39-308); Creatinine Clr Calc Pharmacy 52.3 ml/min; Est GFR (African American) 46.3; Globulin 3.9 gm/dl (2.5-4.0); Glucose 547 mg/dl (70-99); Magnesium 2.7 mg/dl (1.8-2.4); Potassium 6.4 mmol/L (3.5-5.1); Sodium 127 mmol/L (136-145); Troponin I < 0.015 ng/ml (0-0.045)
[2019-04-23] MEDS ORDERED: SEVERE STRESS LEVEL ONE (18:07)
[2019-04-23] MEDS ORDERED: SODIUM CHLORIDE 0.9% 1000ML 500 ML IV ONE (18:15)
[2019-04-23] MEDS ORDERED: ONDANSETRON INJ 2 MG/ML 2 ML VIAL IV STA (18:15)
[2019-04-23] MEDS ORDERED: INSULIN REGULAR 250 UNITS in SODIUM CHLORIDE 0.9% 247.5 ML IV SCH (18:15)
[2019-04-23] MEDS ORDERED: ONDANSETRON INJ 2 MG/ML 2 ML VIAL ONE (18:15)
[2019-04-23] MEDS ORDERED: INSULIN HUMAN REGULAR PER UNIT 3.5 UNITS in SYRINGE 3.465 ML IV ONE (18:30)
[2019-04-23] MEDS ORDERED: SODIUM CHLORIDE 0.9% 1000ML 1,000 ML IV SCH (18:45)
[2019-04-23 19:30] LABS: Allen Test POS (Pos); HCO3 ABG 4 mmol/L (19-24); Oxygen Saturation ABG 97.5 % (90-95); PCO2 ABG 17 mmHg (35-46); PO2 ABG 123 mm/Hg (80-95)
[2019-04-23 19:31] LABS: pH ABG 6.99 (7.35-7.45)
[2019-04-23] MEDS ORDERED: SODIUM BICARBONATE 8.4% 100 MEQ in WATER, STERILE 1,000 ML IV SCH (19:45)
[2019-04-23] MEDS ORDERED: CALCIUM GLUCONATE 10% 1,000 MG in SODIUM CHLORIDE 0.9% 50 ML IV STA (20:22)
--- NOTE | 2019-04-23 20:42 | History & Physical Report ---
Date of Service April 23, 2019 Assessment & Plan (1) DKA (diabetic ketoacidoses): 48-year-old male who is an insulin-dependent type 1 diabetic presents in DKA. Patient admits to medication nonadherencehe has been taking NovoLog, but has skipped his Lantus over the past couple days. No other concerning source of infection. DKA Admit to ICU, consult placed Received 2 L bolus in the ED, currently on maintenance fluids 0.9% normal saline at 150 cc/h Insulin drip started he ED, continue, glycemic consult placed, transition to subcu insulin after gap closes Orders to convert to half-normal saline plus D5 when glucose normalizes below 250 Continue bicarb drip, patient's pH was 6.9 Follow VBG every 4 hour Follow BMP every 4 hours Hyperkalemia Calcium gluconate given Continue fluids, insulin drip Follow BMP every 4 hours Order stat potassium to fluid once potassium is below 5.2 Hypothyroidism Continue p.o. dose of levothyroxine in the a.m. CAD prevention Continue atorvastatin in the a.m. Depression Continue duloxetine in the a.m. CODE STATUS Full code DVT prophylaxis Lovenox Diet N.p.o. 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 The patient was found in the ED to have a blood glucose 596. Patient states that over the past 5 days he has neglected to take his Lantus. He has been administering NovoLog throughout the day, but admits to not taking his blood glucose throughout the day. He normally wears a continuous blood glucose monitor, but states that since he has been outside and has been sweating, he decided not to wear it. Patient states that the symptoms began yesterday afternoon. He describes being out in the daytime four wheeling. He subsequently went to [employer] and had a meal that made him feel severely nauseous and he began to vomit. Patient denies history of tobacco use, but states that he drinks alcohol, but contains it to moderate drinking on the weekends. He says that he had 4 beers last night. Review of systems Constitutional; denies fevers, chills, night sweats HEENT; denies sore throat, runny nose, ear pain Respiratory; shortness of breath as described above, denies cough, denies wheezing Cardiac; denies chest pain Abdomen; reports nausea, denies abdominal pain, has episodes of vomiting as described above Allergies Allergy/AdvReac Type Severity Reaction Status Date / Time latex Allergy Mild REDDENED Verified 04/23/19 17:27 SKIN ON CONTACT Home Medications Home Medications Medication Instructions Recorded Confirmed Type atorvastatin 10 mg PO DAILY 02/15/19 04/23/19 History cyanocobalamin (vitamin B-12) 1,000 mcg PO DAILY 02/15/19 04/23/19 History [Vitamin B-12] duloxetine 60 mg PO DAILY 02/15/19 04/23/19 History ergocalciferol (vitamin D2) 50,000 unit PO WK 02/15/19 04/23/19 History [Vitamin D2] etodolac 500 mg PO BID 02/15/19 04/23/19 History insulin aspart U-100 [Novolog 60 unit SUBCUT BIDM 02/15/19 04/23/19 History Flexpen U-100 Insulin] insulin glargine [Lantus Solostar 50 unit SUBCUT QAM 02/15/19 04/23/19 History U-100 Insulin] levothyroxine 100 mcg PO DAILY 02/15/19 04/23/19 History levothyroxine 200 mcg PO DAILY 02/15/19 04/23/19 History albuterol sulfate [Ventolin HFA] 1 - 2 puffs INHALATION Q4H PRN 04/23/19 04/23/19 History Past Med/Surg History Medical History Janett's thyroiditis (Acute) Diabetic peripheral neuropathy associated with type 2 diabetes mellitus (Acute) Neuropathy (Chronic) Hyperthyroidism (Chronic) HLD (hyperlipidemia) (Chronic) HTN (hypertension) (Chronic) Asthma (Chronic) Diabetes (Chronic) Surgical History H/O knee surgery (Resolved) Family History Other Diabetes Social History 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 Required: No Beliefs That Will Affect Care: None Current Living Situation: Family Feels Safe at Home: Yes Safety Concerns: Feels Safe At This Time Smoking Status: Never smoker Hx Alcohol Use: Yes Alcohol type: beer Hx Substance Use: No Review of Systems Review of Systems: All systems reviewed & are unremarkable except as noted in HPI & below Physical Exam Constitutional: WD/WN, vitals as above Eyes: PERRL, conjunctivae normal, anicteric sclerae ENMT: external ear and nose normal, oropharynx normal Mouth: + malodorous breath Neck: trachea midline, no thyromegaly Respiratory: able to speak in complete sentences and + tachypneic Auscultation: lungs clear to auscultation bilaterally; no diminished lung sounds, no crackles, no rales and no wheezes Cardiovascular: RRR, no murmur, no edema Gastrointestinal (Abdomen): normal bowel sounds, soft, nontender, no hepatosplenomegaly Musculoskeletal: no cyanosis or clubbing, extremities motor strength 5/5 Skin: no rashes, warm and dry Neurologic: PERRL, EOMI, accommodation nl, no face palsy, no dysarthria Psychiatric: A+Ox3, euthymic affect Results & Data Vital Signs (Past 12 Hours) Vital Signs Temp Pulse Pulse Resp BP Pulse Ox 04/23/19 20:00 126 H 22 147/84 H 04/23/19 19:45 125 H 22 141/70 H 04/23/19 19:36 125 H 22 139/78 04/23/19 19:15 122 H 19 150/76 H 04/23/19 19:00 122 H 22 153/77 H 04/23/19 18:45 122 H 20 161/79 H 04/23/19 18:40 120 H 20 188/105 H 04/23/19 18:30 117 H 19 157/73 H 04/23/19 18:15 123 H 22 155/111 H 04/23/19 18:09 120 H 18 166/79 H 04/23/19 18:00 121 H 18 166/79 H 04/23/19 17:44 120 H 16 100 04/23/19 17:30 112 H 24 04/23/19 17:20 111 H 24 04/23/19 17:15 116 H 23 164/97 H 04/23/19 17:09 115 H 24 96 04/23/19 16:54 36.6 C 118 H 22 129/64 99 Diagnostic Findings NADEGE HENDRICKS 48 [address] 1970 [facility] [place] [phone] XRay Report Patient: NADEGE HENDRICKS Date: 04/23/19 MR#: [id number] Acct ID:[id number]: Date: [address] Zip: [place] [address] Age: 48Location: ED Sex: M Room/Bed: Att Phy: Diagnosis: NAUSEA,WEAK,SOB,VISION ISSUE Alexandra Phy: iLam Schroeder, III, CRNPService Date: 04/23/19 Fam Phy: Interpreting Phy: Mateus Craig MD Admit Phy: Ordering Phy: Mateus De Los Santos M.D. cc: ~ SINGLE VIEW CHEST CLINICAL HISTORY: Generalized weakness. FINDINGS: An AP, portable, upright chest radiograph is compared to chest x-ray and chest CT dated 02/15/2019. The cardiomediastinal silhouette is unremarkable. The lungs and pleural spaces are clear. No pneumothorax is seen. The bony thorax is grossly intact. IMPRESSION: No active disease in the chest. Electronically signed by: Mateus Craig M.D. 04/23/2019 5:26 PM Dictated: 04/23/19 1725 Transcribed: 04/23/19 1725 Code Status & VTE Plan Code Status Full code VTE Prophylaxis Plan VTE Prophylaxis will be ordered: Yes Critical Care Time Critical Care Time: Yes Total Critical Care Time: 45 Total critical care time was 45 minutes Supervising Physician Co-Signing Physician Notes Attending addendum: I have physically seen this patient, have supervised the medical residents activities, and agree with the H&P unless as otherwise noted. Assessment and Plan: DKA/severe metabolic acidosis- Admit to the intensive care unit. pH 6.9. Placed on bicarbonate drip, IV fluids, insulin drip and frequent lab testing. No source of infection. Etiology is patient stopping his long-acting insulin, due to working outside, and just covering himself with short acting insulin based on his carbohydrate intake. Follow serial ABGs BMP magnesium and phosphorus levels. Hyperkalemia- Potassium 6.4 upon admission. Give calcium gluconate 1 g IV. Repeat with next labs, should be low on the basis of improving acidosis and glucose. Remainder of orders and notations as noted PG Care Time/CCT Total # of Minutes Spent Total Time Spent with Patient: Total time spent is greater than 50% in coordination of care (as documented) at patient's floor/unit and/or counseling patient: Critical Care Time: Yes Total Critical Care Time: 45 Resident Activity Tracking Resident Involvement: Resident Care Provided Care Provided: Adult Hospital Medicine (1) DKA (diabetic ketoacidoses) Diabetes mellitus complication detail: without coma Diabetes mellitus type: type 1 Qualified Code(s): E10.10 - Type 1 diabetes mellitus with ketoacidosis without coma (2) Diarrhea Diarrhea type: unspecified type Qualified Code(s): R19.7 - Diarrhea, unspecified (3) Vomiting Nausea presence: with nausea Vomiting Intractability: non-intractable Vomiting type: unspecified Qualified Code(s): R11.2 - Nausea with vomiting, unspecified
[2019-04-23] MEDS ORDERED: ONDANSETRON INJ 2 MG/ML 2 ML VIAL IV PRN (22:10)
[2019-04-23] MEDS ORDERED: POLYETHYLENE (MIRALAX) 17 GM PACK PO PRN (22:10)
[2019-04-23] MEDS ORDERED: DKA GOAL RANGE 150-250 mg/dl ONE (22:10)
--- NOTE | 2019-04-23 22:12 | Critical Care Consultation ---
Date of Consultation April 23, 2019 Assessment & Plan (1) Admitted to intensive care unit: Reason Critically Ill: 48-year-old male presenting with DKA secondary to nonadherence to insulin regime at home requiring aggressive IV fluid resuscitation as well as insulin drip and close hemodynamic/electrolyte monitoring. NEURO - * CAM ICU: NEGATIVE * Depression: Continue home medications. CARDIAC/VASCULAR - * h/o HTN, HLD * Continue home Rx as tolerated. * EKG: Sinus Tach @119bpm. No ST/T-wave changes. QTc 481ms. No significant change from 02/15/2019. * Monitor on telemetry. RESPIRATORY - * Tachypnea: * Compensatory in the setting of DKA w/ high anion gap metabolic acidosis. * Not profoundly presenting w/ Kussmaul's respirations, however. * Will monitor closely to aid in s/s of progression vs. regression of DKA. * Asthma: * No concerns at this time. * Continue to assess respiratory status for s/s asthma exacerbation. Address as needed. * Did receive Albuterol nebulizer in the ED - presumed for Hyper K. GI/NUTRITION - * NPO currently in the setting of DKA. * Will readdress as anion gap closes and patient shows s/s of improvement. * Prophylaxis: Zantac RENAL/LYTES - * SHELLY: * Likely in the setting of dehydration from GI losses. * Will continue to aggressively rehydrate. * Received 2L IVF in the ED w/ a rate of NSS@150mL/hr upon arrival. Will hold NSS currently as patient started on BiCarb gtt 2/2 acidosis. * Will continue to reassess fluid needs and tailor IVF to metabolic needs. * Hyperkalemia: * As seen in the setting of DKA. * Addressed in the ED. * Anticipate precipitous drop w/ the addition of BiCarb/Insulin infusions. * Plan to d/c BiCarb gtt shortly with repeat labs upon arrival to ICU. - * No concerns at this time. * Strict I&Os. ENDO - * IDDM currently in DKA 2/2 nonadherence to home Rx. * Aggressive fluid resuscitation. * Insulin gtt. * Plan to transition to Dextrose containing IVF when goal range met. * Tailoring IVF pending metabolic/electrolyte needs. * qh4 labs w/ reassessment at each interval w/ changes to be made as needed. * Hypothyroidism: * Continue home Rx. HEME - * Stable H&H ID - * No concerns for infectious etiology at this time. * Trend fever curve. LINES/IV ACCESS - * PIVs x2 * LUE 18g Endurance catheter. DVT PROPHYLAXIS - * Lovenox * SCDs I have personally spent 35 minutes of critical care time in the direct management of this patient. This is a life/limb threatening event. This includes time spent evaluating patient, direct bedside care, chart review, placing orders, interpretation of diagnostic studies, discussion with consultants, patient, and family members, as well as other required patient management activities. This time is exclusive of all separately billable procedures, and teaching time and separate from and in addition to any other critical care service time. Thank you for allowing us to participate in the care of this patient. Please refer to my attending physician's documentation for any further recommendations. (2) DKA (diabetic ketoacidoses): (3) Hyperkalemia: (4) Tachycardia: (5) Vomiting: (6) Diarrhea: (7) Secondary hyperparathyroidism: (8) Janett's thyroiditis: (9) Dyslipidemia: (10) Dysesthesia: (11) Diabetic peripheral neuropathy associated with type 2 diabetes mellitus: (12) Neuropathy: (13) Hyperthyroidism: (14) HLD (hyperlipidemia): (15) HTN (hypertension): (16) Asthma: Supervising Physician Co-Signing Physician Notes I have seen and examined this patient with Zay Coburn PA-C and agree with his assessment and plan of care. We are going to continue with current plan of care as prescribed. Dr. Haris Jameson. History of Present Illness Attending Physician: Ace Gray MD Patient is a 48-year-old male with significant past medical history of insulin- dependent diabetes who presented to the emergency department with a less than 24-hour history of nausea, vomiting, and diarrhea. Apparently, the patient had been using his short acting insulin as directed for the past few days, but had neglected to use his Lantus. He had been working outside and also been riding [employer] recently. He did report that yesterday shortly after eating a meal at [employer] he developed nausea with vomiting. Initially he felt as though symptoms are consistent with food poisoning, but throughout the day today he noticed increasing work of breathing in addition to the GI symptoms. On presentation to the emergency department, he was found to be acutely acidotic with pH of 6.99. Blood glucose is elevated greater than 500. He was hyperkalemic which was treated with aggressive fluids and albuterol. He was started on insulin drip and subsequently transferred to the ICU for further evaluation and management. On evaluation in the ICU, the patient is awake, alert, and oriented. He does have some slight work of breathing. He reports feeling nauseous with movement, but currently denies any need to vomit. He reports no pain of any kind. He denies any headaches, dizziness, blurry vision, numbness/weakness to the extremities, chest pain, palpitations, pleuritic pain, hematemesis, hematochezia, melena, hematuria, or dysuria. Patient admits to drinking approximately four 8 ounce beers last evening. He denies any significant heavy alcohol use or tobacco use. Allergies Allergy/AdvReac Type Severity Reaction Status Date / Time latex Allergy Mild REDDENED Verified 04/23/19 17:27 SKIN ON CONTACT Home Medications Home Medications Medication Instructions Recorded Confirmed Type atorvastatin 10 mg PO DAILY 02/15/19 04/23/19 History cyanocobalamin (vitamin B-12) 1,000 mcg PO DAILY 02/15/19 04/23/19 History [Vitamin B-12] duloxetine 60 mg PO DAILY 02/15/19 04/23/19 History ergocalciferol (vitamin D2) 50,000 unit PO WK 02/15/19 04/23/19 History [Vitamin D2] etodolac 500 mg PO BID 02/15/19 04/23/19 History insulin aspart U-100 [Novolog 60 unit SUBCUT BIDM 02/15/19 04/23/19 History Flexpen U-100 Insulin] insulin glargine [Lantus Solostar 50 unit SUBCUT QAM 02/15/19 04/23/19 History U-100 Insulin] levothyroxine 100 mcg PO DAILY 02/15/19 04/23/19 History levothyroxine 200 mcg PO DAILY 02/15/19 04/23/19 History albuterol sulfate [Ventolin HFA] 1 - 2 puffs INHALATION Q4H PRN 04/23/19 04/23/19 History Patient History Medical History Janett's thyroiditis (Acute) Diabetic peripheral neuropathy associated with type 2 diabetes mellitus (Acute) Neuropathy (Chronic) Hyperthyroidism (Chronic) HLD (hyperlipidemia) (Chronic) HTN (hypertension) (Chronic) Asthma (Chronic) Diabetes (Chronic) Surgical History H/O knee surgery (Resolved) Family History Other Diabetes Social History 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 All else were negative. Physical Exam Physical Exam: VITAL SIGNS - Vital signs and nursing notes were reviewed. GENERAL - 48-year-old male appearing his stated age who is in no acute distress. Communicates well with provider and answers questions appropriately. Mild tachypnea. SKIN - Without rashes. HEAD - NC/AT. EYES - PERRL with EOMI bilaterally. Sclera anicteric. Palpebral conjunctiva pink and moist with no injection noted. EARS - No deformities of external structures noted on gross examination bilaterally. NOSE - Midline and without cyanosis. No epistaxis or purulent drainage noted. Septum midline without deviation or septal hematoma noted. MOUTH/OROPHARYNX - Without perioral cyanosis. Buccal mucosa pink and moist and without leukoplakia. Tongue midline with equal elevation of palate bilaterally. No tonsillar hypertrophy, erythema, or exudates noted. Fair dentition noted. NECK - Neck with FROM. Supple to palpation. No lymphadenopathy noted. No nuchal rigidity. LUNGS - Chest wall symmetric without accessory muscle use, intercostals retractions, or central cyanosis. Normal vesicular breath sounds CTA B/L. No wheezes, rales, or rhonchi appreciated. CARDIAC - RRR with S1/S2. No murmur, rubs, or gallops appreciated. ABDOMEN - Abdominal contour flat without pulsations or visible masses. BS normoactive all four quadrants. No tenderness, palpable masses, hepatosplenomegaly, or ascites noted. EXTREMITIES - No clubbing or peripheral cyanosis. No pretibial edema present. +3/5 radial and dorsalis pedis pulses palpated throughout. +5/5 strength noted i n UE/LE bilaterally. NEUROLOGIC - Cranial nerves II through XII grossly intact. Sensory intact to light touch throughout. PSYCH - A&Ox3 and cooperates fully with examiner. Pt is very pleasant and inte racts well with examiner. Results & Data Vital Signs (Past 12 Hours) Vital Signs Temp Pulse Pulse Resp BP BP Pulse Ox 04/23/19 21:23 37.4 C 121 H 23 130/66 100 04/23/19 21:00 117 H 19 128/68 04/23/19 20:45 117 H 20 136/70 04/23/19 20:30 126 H 20 129/68 04/23/19 20:15 120 H 20 122/61 04/23/19 20:00 126 H 22 147/84 H 04/23/19 19:45 125 H 22 141/70 H 04/23/19 19:36 125 H 22 139/78 04/23/19 19:15 122 H 19 150/76 H 04/23/19 19:00 122 H 22 153/77 H 04/23/19 18:45 122 H 20 161/79 H 04/23/19 18:40 120 H 20 188/105 H 04/23/19 18:30 117 H 19 157/73 H 04/23/19 18:15 123 H 22 155/111 H 04/23/19 18:09 120 H 18 166/79 H 04/23/19 18:00 121 H 18 166/79 H 04/23/19 17:44 120 H 16 100 04/23/19 17:30 112 H 24 04/23/19 17:20 111 H 24 04/23/19 17:15 116 H 23 164/97 H 04/23/19 17:09 115 H 24 96 04/23/19 16:54 36.6 C 118 H 22 129/64 99 PG Care Time/CCT Total # of Minutes Spent Total Time Spent with Patient: Total time spent is greater than 50% in coordination of care (as documented) at patient's floor/unit and/or counseling patient: Critical Care Time: Yes Total Critical Care Time: 35 (1) DKA (diabetic ketoacidoses) Diabetes mellitus complication detail: without coma Diabetes mellitus type: type 1 Qualified Code(s): E10.10 - Type 1 diabetes mellitus with ketoacidosis without coma (2) Diarrhea Diarrhea type: unspecified type Qualified Code(s): R19.7 - Diarrhea, unspecified (3) Vomiting Nausea presence: with nausea Vomiting Intractability: non-intractable Vomiting type: unspecified Qualified Code(s): R11.2 - Nausea with vomiting, unspecified
--- NOTE | 2019-04-23 22:13 | Procedure Note ---
Procedure Note Date of Service April 23, 2019 Procedure: Underground Electrician Indwelling Peripherally Inserted IV Catheter Placement Attending: Dr. Jameson APC: Zay Coburn PA-C Indication: Need for IV Access, Poor Vascular Access Anesthesia: None Verbal consent was obtained from patient prior to performing the procedure. A time-out was completed verifying correct patient, procedure, site, positioning, and implant(s) or special equipment if applicable. Utilizing bedside ultrasound, vascularity of the LEFT upper extremity was assessed. Vessel size was noted for appropriate catheter selection and skin was marked with gentle pressure. Patients LEFT upper extremity was prepped and draped in the usual sterile fashion utilizing chlorhexidine. Ultrasound guidance was used to aid needle placement. An 18 g Endurance Catheter was introduced into the LEFT Cephalic vein under direct ultrasound guidance. Guide wire was easily deployed without resistance. Catheter was threaded over the guide wire without resistance and the entire apparatus was removed intact. Good venous blood return was noted in the catheter. The IV catheter was easily flushed with sterile saline flush. Sterile clave was attached to the end of the catheter and good blood return was again noted. Tourniquet was released. StatLock device and sterile dressing were applied. The patient tolerated the procedure well. Blood Loss: Minimal Complications: None Procedural Ultrasound Guidance: Procedure Date: 04/23/2019 Indication: Poor Vascular Access Attending: Dr. Jameson APC: Zay Coburn PA-C Artery/Veins Identified: YES Access confirmed in Vein with ultrasound: YES Complications: NONE Patient tolerated procedure: WELL Supervising Physician Co-Signing Physician Notes I have seen and examined this patient with Zay Coburn PA-C and agree with his assessment and plan of care. We are going to continue with current plan of care as prescribed. Dr. Haris Jameson. Coding CPT Codes Tubes, Drains, and Vasc Access - Tubes, Drains, and Vasc Access: Venipuncture, Age 1/>Req physician skill, (sep proc), Dx/Tx (not rout) ([id number])
[2019-04-23] MEDS ORDERED: PHARMACY GLYCEMIC MGMT CONSULT PRN (22:16)
[2019-04-23] MEDS: INSULIN ASPART 100 UNITS/ML 3 ML PEN SC SCH (22:28)
[2019-04-23] MEDS ORDERED: GLUCOSE 40% GEL 15 GM TUBE PO PRN (22:30)
[2019-04-23] MEDS ORDERED: DEXTROSE 50% 50 ML SYRINGE IV PRN (22:30)
[2019-04-23] MEDS ORDERED: CARBOHYDRATES FOR HYPOGLYCEMIA PO PRN (22:30)
[2019-04-23] MEDS ORDERED: GLUCOSE 10 TABS/TUBE PO PRN (22:30)
[2019-04-23] MEDS ORDERED: GLUCAGON FOR INJ 1 MG VIAL SQ PRN (22:30)
[2019-04-23 22:52] LABS: BUN Creatinine Ratio 16.1 (10-20); Calcium 7.5 mg/dl (8.5-10.1); Creatinine Clr Calc Pharmacy 68.9 ml/min; Est GFR (African American) 64.6; Est GFR (Non-African American) 55.8; Magnesium 2.2 mg/dl (1.8-2.4); Phosphorus 3.7 mg/dl (2.5-4.9)
[2019-04-23 22:53] LABS: Potassium 5.3 mmol/L (3.5-5.1)
[2019-04-23] MEDS ORDERED: SODIUM BICARBONATE 8.4% 100 MEQ in DEXTROSE 5% 1,000 ML IV SCH (23:15)
[2019-04-24 02:34] LABS: Prothrombin Time 9.8 Seconds (9.0-12.0)
[2019-04-24 03:01] LABS: BUN Creatinine Ratio 14.9 (10-20); Calcium 7.3 mg/dl (8.5-10.1); Creatinine Clr Calc Pharmacy 72.4 ml/min; Est GFR (African American) 68.6; Est GFR (Non-African American) 59.2; Magnesium 2.1 mg/dl (1.8-2.4); Phosphorus 2.6 mg/dl (2.5-4.9); Potassium 4.6 mmol/L (3.5-5.1)
[2019-04-24 03:04] LABS: iSTAT Allen Test Pass; iSTAT Art Bld Gas pCO2 Correct 26 mmHg (35-46); iSTAT Art Bld Gas pH Corrected 7.206 (7.35-7.45); iSTAT Arterial Blood Gas HCO3 10 meg/L (19-24); iSTAT Arterial Blood Gas pCO2 26 mmHg (35-46); iSTAT Arterial Blood Gas pH 7.21 (7.35-7.45); iSTAT Carbon Dioxide 11 mEq/l (24-31); iSTAT Site L Radial
[2019-04-24] MEDS: D5W NORMOSOL-R 1,000 ML IV SCH ×2 (03:30→10:20)
[2019-04-24 03:51] LABS: Beta-Hydroxybutyrate 59.61 mg/dl (0.2-2.81)
[2019-04-24] MEDS: LEVOTHYROXINE SODIUM 200 MCG TABLET PO SCH (05:49)
[2019-04-24] MEDS: LEVOTHYROXINE SODIUM 100 MCG TABLET PO SCH (05:49)
[2019-04-24 06:24] LABS: Estimated Average Glucose 280 mg/dl; Hemoglobin A1C 11.4 % (4.5-5.6)
[2019-04-24 07:01] LABS: BUN Creatinine Ratio 12.7 (10-20); Calcium 7.4 mg/dl (8.5-10.1); Creatinine Clr Calc Pharmacy 75.1 ml/min; Est GFR (African American) 71.7; Est GFR (Non-African American) 61.9; Magnesium 2.5 mg/dl (1.8-2.4); Phosphorus 2.8 mg/dl (2.5-4.9); Potassium 4.2 mmol/L (3.5-5.1)
[2019-04-24] MEDS: PENDING D5 1/2NS+20mEq KCL IVF SCH ×3 (07:10→08:48)
--- NOTE | 2019-04-24 08:01 | Critical Care Progress Note ---
Date of Service April 24, 2019 Assessment & Plan (1) DKA (diabetic ketoacidoses): 48-year-old male who is an insulin-dependent type 1 diabetic presents in DKA. Patient admits to medication nonadherencehe has been taking NovoLog, but has skipped his Lantus over the past couple days. No other concerning source of infection. Neuro: [facility] ICU negative Sleepy, No complaints of pain Depression Continue duloxetine in the a.m. Cardiac/Vascular Tachycardia has resolved, still in low 90s bpm Will recheck ECG continue with atorvastatin 10mg which is for CAD prevention in setting of DM1. Pulm: 98% on RA CXR performed yesterday showed no active disease in chest. GI Currently complaining of nausea Will order DM1 diet and will attempt to advance PO intake as tolerated, once able to handle PO intake will be able to be transferred out of ICU. Renal/Electrolytes Creatinine on presentation to hospital elevated at 1.91 which is consistent with SHELLY, most likely pre-renal from hypovolemia. Repeat lab values show resolving SHELLY treated with fluid hydration. 04/24 creatinine is 1.33. : Vera no Endo: Uncontrolled DM1 - non-compliance. A1C currently 11.4. Admitted for DKA. * Review of past A1Cs from last two years range 10.0-11.4 Presentation ABG with pH 6.99 and patient was treated with bicarb drip for 4 hours which has been discontinued with repeat pH 7.21 AG this morning still slightly elevated at 13 but trending down from presentation AG of 30. B-hydroxy level on presentation was 136 with repeat level 59.6. Currently on Insulin drip; no hypoglycemic values. Home regimen appears to be Lantus 50units qAM and Aspart 60 units BIDM. Hypothyroidism Continue p.o. dose of levothyroxine Heme: Leukocytosis with value of 27.3. Most likely stress response de-margination of neutrophils. Will trend ID: MRSA + nasal swab, with appropriate contact precautions. No current fever, signs/sources of infection Lines: PIV DVT prophylaxis Lovenox CODE STATUS Full code Supervising Physician Co-Signing Physician Notes Dr. Gallegos was resident physician during care of patient. I separately evaluated patient for noguera portions of the history and the exam. I was present during the critical portion of medical decision making, and I discussed the case with the resident. I generally agree with the findings and plan. DKA continues to improve. Still nauseated and not taking large amounts by mouth. Hopefully he will improve and be stable for downgrade later today. Definitively poorly glycemic control with A1c greater than 11. Subjective Mr. Mendez is sleepy this morning but answers questions appropriately. He still is having nausea. Otherwise, no current complaints of pain, or shortness of breath. Physical Exam Constitutional: WD/WN, vitals as above sleepy but easily arousable and answers questions appropriately Neck: normal visual inspection and trachea midline Respiratory: normal respiratory effort, lungs clear to auscultation Cardiovascular: RRR, no murmur, no edema Gastrointestinal (Abdomen): normal bowel sounds, soft, nontender, no hepatosplenomegaly Skin: no rashes, warm and dry Neurologic: moves all extremities Psychiatric: Orientation: alert and oriented x 3 Results & Data Vital Signs (Past 12 Hours) Vital Signs Temp Pulse Pulse Resp BP BP Pulse Ox 04/24/19 06:00 91 H 19 124/64 98 04/24/19 05:00 93 H 17 130/66 97 04/24/19 04:00 37.2 C 89 16 102/61 97 04/24/19 03:00 94 H 16 119/61 97 04/24/19 02:00 103 H 17 129/72 98 04/24/19 01:00 107 H 19 131/71 98 04/24/19 00:00 37.2 C 110 H 19 126/66 98 04/23/19 23:00 120 H 19 132/64 98 04/23/19 22:00 117 H 22 136/65 100 04/23/19 21:58 37.4 C 119 H 32 H 134/61 100 04/23/19 21:23 37.4 C 121 H 23 130/66 100 04/23/19 21:15 140/77 04/23/19 21:00 117 H 19 128/68 04/23/19 20:45 117 H 20 136/70 04/23/19 20:30 126 H 20 129/68 04/23/19 20:15 120 H 20 122/61 Laboratory Results Laboratory Results WBC 27.30 K/uL (4.8-10.8) H 04/23/19 17:13 RBC 5.41 M/uL (4.7-6.1) 04/23/19 17:13 Hgb 16.9 g/dL (14.0-18.0) 04/23/19 17:13 Hct 50.3 % (42-52) 04/23/19 17:13 MCV 93.0 fL (80-100) 04/23/19 17:13 MCH 31.2 pg (25-34) 04/23/19 17:13 MCHC 33.6 g/dL (32-36) 04/23/19 17:13 RDW Std Deviation 46.2 fL (36.4-46.3) 04/23/19 17:13 RDW Coeff of Brittany 13.4 % (11.5-14.5) 04/23/19 17:13 Plt Count 375 K/uL (130-400) 04/23/19 17:13 MPV 11.7 fL (7.4-10.4) H 04/23/19 17:13 Immature Gran % (Auto) 0.9 % 04/23/19 17:13 Neut % (Auto) 85.0 % 04/23/19 17:13 Lymph % (Auto) 9.4 % 04/23/19 17:13 [place] % (Auto) 4.6 % 04/23/19 17:13 Eos % (Auto) 0.0 % 04/23/19 17:13 Baso % (Auto) 0.1 % 04/23/19 17:13 Immature Gran # (Auto) 0.25 K/uL (0.00-0.02) H 04/23/19 17:13 Neut # (Auto) 23.17 K/uL (1.4-6.5) H 04/23/19 17:13 Lymph # (Auto) 2.57 K/uL (1.2-3.4) 04/23/19 17:13 [place] # (Auto) 1.26 K/uL (0.11-0.59) H 04/23/19 17:13 Eos # (Auto) 0.01 K/uL (0-0.5) 04/23/19 17:13 Baso # (Auto) 0.04 K/uL (0-0.2) 04/23/19 17:13 PT 9.8 Seconds (9.0-12.0) 04/24/19 02:13 INR 1.0 (0.9-1.1) 04/24/19 02:13 Sample Site L Radial 04/24/19 02:51 POC pH 7.21 (7.35-7.45) L 04/24/19 02:51 POC pCO2 26 mmHg (35-46) L 04/24/19 02:51 POC pO2 98 mmHg (80-95) H 04/24/19 02:51 POC HCO3 10 mercy/L (19-24) L 04/24/19 02:51 POC Total CO2 11 mEq/l (24-31) L 04/24/19 02:51 POC Base Excess -18.0 mercy/L (-9-1.8) L 04/24/19 02:51 ABG pH 6.99 (7.35-7.45) L* 04/23/19 19:00 ABG pH (Temp Correct) 7.206 (7.35-7.45) L 04/24/19 02:51 ABG pCO2 17 mmHg (35-46) L 04/23/19 19:00 ABG pCO2 (Temp Corrct 26 mmHg (35-46) L 04/24/19 02:51 ABG pO2 123 mm/Hg (80-95) H 04/23/19 19:00 POC ABG pO2 at Pt Temp 101 04/24/19 02:51 ABG HCO3 4 mmol/L (19-24) L 04/23/19 19:00 POC ABG O2 Sat 96.0 % (90-95) H 04/24/19 02:51 ABG O2 Saturation 97.5 % (90-95) H 04/23/19 19:00 ABG Base Excess -26.0 mEq/L (-9-1.8) L 04/23/19 19:00 Abhishek Test Pass 04/24/19 02:51 VBG pH 7.29 (7.36-7.41) L 04/24/19 06:19 Barometric Pressure Cancelled 04/23/19 18:35 Oxygen Given ROOM AIR 04/23/19 19:00 O2 Delivery Device Room Air 04/24/19 02:51 Sodium 136 mmol/L (136-145) 04/24/19 06:19 Potassium 4.2 mmol/L (3.5-5.1) 04/24/19 06:19 Chloride 106 mmol/L (98-107) 04/24/19 06:19 Carbon Dioxide 17 mmol/L (21-32) L 04/24/19 06:19 Anion Gap 13.0 (3-11) H 04/24/19 06:19 BUN 17 mg/dl (7-18) 04/24/19 06:19 Creatinine 1.33 mg/dl (0.6-1.4) 04/24/19 06:19 Est Cr Clr Drug Dosing 75.1 ml/min 04/24/19 06:19 Est GFR ( Amer) 71.7 04/24/19 06:19 Est GFR (Non-Af Amer) 61.9 04/24/19 06:19 BUN/Creatinine Ratio 12.7 (10-20) 04/24/19 06:19 Glucose 269 mg/dl (70-99) H 04/24/19 06:19 POC Glucose 200 (70-99) H 04/24/19 08:49 Estimat Average Glucose 280 mg/dl 04/24/19 02:13 Hemoglobin A1c 11.4 % (4.5-5.6) H 04/24/19 02:13 Osmolality 302 mOsm/kg (280-300) H 04/23/19 22:18 Lactate 2.5 mmol/L (0.4-2.0) H* 04/23/19 18:17 Calcium 7.4 mg/dl (8.5-10.1) L 04/24/19 06:19 Phosphorus 2.8 mg/dl (2.5-4.9) 04/24/19 06:19 Magnesium 2.5 mg/dl (1.8-2.4) H 04/24/19 06:19 Total Bilirubin 0.5 mg/dl (0.2-1) 04/23/19 17:13 AST 30 U/L (15-37) 04/23/19 17:13 ALT 47 U/L (12-78) 04/23/19 17:13 Alkaline Phosphatase 162 U/L (45-117) H 04/23/19 17:13 Total Creatine Kinase 403 U/L (39-308) H 04/23/19 17:13 Troponin I < 0.015 ng/ml (0-0.045) 04/23/19 17:13 Total Protein 8.0 gm/dl (6.4-8.2) 04/23/19 17:13 Albumin 4.1 gm/dl (3.4-5.0) 04/23/19 17:13 Globulin 3.9 gm/dl (2.5-4.0) 04/23/19 17:13 Albumin/Globulin Ratio 1.0 (0.9-2) 04/23/19 17:13 Beta-Hydroxybutyric Acd 59.61 mg/dl (0.2-2.81) H 04/24/19 02:13 TSH 0.475 uIu/ml (0.300-4.500) 04/23/19 17:13 Specimen Hemolysis 04/23/19 17:13 Urine Color Yellow 04/23/19 17:13 Urine Appearance Clear (Clear) 04/23/19 17:13 Urine pH 5.0 (4.5-7.5) 04/23/19 17:13 Ur Specific Nikolai 1.029 (1.000-1.030) 04/23/19 17:13 Urine Protein 1+ (Negative) H 04/23/19 17:13 Urine Glucose (UA) 3+ (Negative) H 04/23/19 17:13 Urine Ketones 4+ (Negative) H 04/23/19 17:13 Urine Blood 2+ (Negative) H 04/23/19 17:13 Urine Nitrite Negative (Negative) 04/23/19 17:13 Urine Bilirubin Negative (Negative) 04/23/19 17:13 Urine Urobilinogen Negative (Negative) 04/23/19 17:13 Ur Leukocyte Esterase Negative (Negative) 04/23/19 17:13 Urine WBC (Auto) 0 /hpf (0-5) 04/23/19 17:13 Urine RBC (Auto) 0-4 /hpf (0-4) 04/23/19 17:13 U Hyaline Cast (Auto) 1-5 /lpf (0-5) 04/23/19 17:13 U Epithel Cells (Auto) 5-10 /lpf (0-5) H 04/23/19 17:13 Urine Bacteria (Auto) Negative (Negative) 04/23/19 17:13 Urine Osmolality 597 mOsm/kg (500-800) 04/23/19 22:45 Nasal Screen MRSA (PCR) Positive (Negative) A 04/23/19 22:22 Medications Administered Atorvastatin Calcium (Lipitor) 10 mg PO DAILY [facility] Stop: 05/24/19 08:59 Last Admin: 04/24/19 09:07 Dose: 10 mg Documented by: [id number] Duloxetine HCl (Cymbalta) 60 mg PO DAILY [facility] Stop: 05/24/19 08:59 Last Admin: 04/24/19 09:07 Dose: 60 mg Documented by: [id number] Enoxaparin Sodium (Lovenox) 40 mg SQ Q24H POWER Stop: 05/24/19 08:59 Last Admin: 04/24/19 09:07 Dose: 40 mg Documented by: [id number] Insulin Human Regular 250 (units/ Sodium Chloride) 250 mls @ 3.4 mls/hr IV .Q24H POWER; Protocol Stop: 05/23/19 18:14 Last Titration: 04/24/19 08:45 Dose: 3.4 units/hr, 3.4 mls/hr Documented by: [id number] Cosigned by: [id number] Titration: 04/24/19 07:30 Dose: 4.2 units/hr, 4.2 mls/hr Documented by: [id number] Cosigned by: [id number] Titration: 04/24/19 05:25 Dose: 2.9 units/hr, 2.9 mls/hr Documented by: [id number] Cosigned by: [id number] Titration: 04/24/19 04:30 Dose: 2.9 units/hr, 2.9 mls/hr Documented by: [id number] Cosigned by: [id number] Titration: 04/24/19 04:00 Dose: 0 units/hr, 0 mls/hr Documented by: [id number] Cosigned by: [id number] Titration: 04/24/19 03:00 Dose: 4.8 units/hr, 4.8 mls/hr Documented by: [id number] Cosigned by: [id number] Titration: 04/24/19 01:00 Dose: 4 units/hr, 4 mls/hr Documented by: [id number] Cosigned by: [id number] Titration: 04/24/19 00:00 Dose: 4 units/hr, 4 mls/hr Documented by: [id number] Cosigned by: [id number] Titration: 04/23/19 23:00 Dose: 4 units/hr, 4 mls/hr Documented by: [id number] Cosigned by: [id number] Titration: 04/23/19 22:00 Dose: 4 units/hr, 4 mls/hr Documented by: [id number] Cosigned by: [id number] Titration: 04/23/19 21:30 Dose: 5 units/hr, 5 mls/hr Documented by: [id number] Cosigned by: [id number] Titration: 04/23/19 21:12 Dose: 5.5 units/hr, 5.5 mls/hr Documented by: [id number] Cosigned by: [id number] Titration: 04/23/19 20:00 Dose: 4.2 units/hr, 4.2 mls/hr Documented by: [id number] Cosigned by: [id number] Titration: 04/23/19 19:08 Dose: 3.5 units/hr, 3.5 mls/hr Documented by: [id number] Cosigned by: [id number] Admin: 04/23/19 18:36 Dose: 3.5 units/hr, 3.5 mls/hr Documented by: [id number] Cosigned by: [id number] Ranitidine HCl 50 mg/ Dextrose 102 mls @ 200 mls/hr IV Q8H POWER Stop: 05/24/19 01:59 Last Admin: 04/24/19 09:08 Dose: 200 mls/hr Documented by: [id number] Infusion: 04/24/19 01:56 Dose: 0 mls/hr Documented by: [id number] Admin: 04/24/19 01:25 Dose: 200 mls/hr Documented by: [id number] Dextrose/Electrolytes (D5w Normosol-R) 1,000 mls @ 150 mls/hr IV .Q6H40M POWER Stop: 05/24/19 03:29 Last Admin: 04/24/19 03:30 Dose: 150 mls/hr Documented by: [id number] Insulin Aspart (Novolog Flexpen) 0 units SC ACHS POWER Stop: 05/23/19 20:59 Last Admin: 04/24/19 09:06 Dose: Not Given Documented by: [id number] Cosigned by: [id number] Admin: 04/23/19 22:28 Dose: Not Given Documented by: [id number] Levothyroxine Sodium (Synthroid) 100 mcg PO DAILYBB POWER Stop: 05/24/19 06:29 Last Admin: 04/24/19 05:49 Dose: 100 mcg Documented by: [id number] Levothyroxine Sodium (Synthroid) 200 mcg PO DAILYBB POWER Stop: 05/24/19 06:29 Last Admin: 04/24/19 05:49 Dose: 200 mcg Documented by: [id number] Ondansetron HCl (Zofran) 4 mg IV Q6H PRN PRN Reason: Nausea Stop: 05/23/19 22:09 Last Admin: 04/23/19 23:07 Dose: 4 mg Documented by: [id number] Resident Activity Tracking Resident Involvement: Resident Care Provided Care Provided: Adult Hospital Medicine (ICU) (1) DKA (diabetic ketoacidoses) Diabetes mellitus complication detail: without coma Diabetes mellitus type: type 1 Qualified Code(s): E10.10 - Type 1 diabetes mellitus with ketoacidosis without coma
[2019-04-24] MEDS ORDERED: INSULIN GLARGINE SOLOSTAR 100 UNITS/ML 3 ML PEN SC ONE (09:00)
[2019-04-24] MEDS: INSULIN ASPART 100 UNITS/ML 3 ML PEN SC SCH ×4 (09:06→20:34)
[2019-04-24] MEDS: DULOXETINE HCL 60 MG CAP PO SCH (09:07)
[2019-04-24] MEDS: ATORVASTATIN 10 MG TAB PO SCH (09:07)
[2019-04-24] MEDS: ENOXAPARIN INJ 40 MG/0.4 ML SYR SQ SCH (09:07)
[2019-04-24 10:31] LABS: BUN Creatinine Ratio 12.1 (10-20); Calcium 7.6 mg/dl (8.5-10.1); Creatinine Clr Calc Pharmacy 82.5 ml/min; Est GFR (African American) 80.4; Est GFR (Non-African American) 69.4; Magnesium 2.4 mg/dl (1.8-2.4); Potassium 3.9 mmol/L (3.5-5.1)
[2019-04-24 10:36] LABS: Phosphorus 2.1 mg/dl (2.5-4.9)
--- NOTE | 2019-04-24 14:33 | Pharmacy Report ---
Glycemic Control Consultation - Date of Service April 24, 2019 - Scope Scope: Glycemic Pharmacist consulted by Dr [] on [date] for glycemic control and to write orders per [facility] inpatient glycemic control protocol - Objective Weight: 95.4 kg Accuchecks BSG (last 24hrs): 04/23/19 04/23/19 04/23/19 17:00 17:13 18:05 Glucose 547 H* POC Glucose 596 H* 522 H* 04/23/19 04/23/19 04/23/19 19:16 20:13 21:07 Glucose POC Glucose 384 H* 361 H* 340 H* 04/23/19 04/23/19 04/23/19 21:32 21:59 22:18 Glucose 261 H POC Glucose 292 H 262 H 04/23/19 04/24/19 04/24/19 23:01 00:04 00:58 Glucose POC Glucose 231 H 200 H 201 H 04/24/19 04/24/19 04/24/19 02:13 03:06 03:58 Glucose 343 H* POC Glucose 314 H* 202 H 04/24/19 04/24/19 04/24/19 05:23 06:19 06:24 Glucose 269 H POC Glucose 192 H 242 H 04/24/19 04/24/19 04/24/19 07:30 08:47 08:48 Glucose POC Glucose 256 H 301 H* 203 H 04/24/19 04/24/19 08:49 09:58 Glucose 199 H POC Glucose 200 H Laboratory Data (last 24hrs): 04/23/19 04/23/19 04/23/19 17:13 22:18 22:18 Potassium 6.4 H* 5.3 H D Carbon Dioxide 6 L* 7 L* Anion Gap 30.0 H 24.0 H Creatinine 1.91 H 1.45 H D Est Cr Clr Drug Dosing 52.3 68.9 Osmolality 302 H Beta-Hydroxybutyric Acd 136.10 H 04/24/19 04/24/19 04/24/19 02:13 06:19 09:58 Potassium 4.6 4.2 3.9 Carbon Dioxide 15 L 17 L 21 Anion Gap 17.0 H 13.0 H 9.0 Creatinine 1.38 1.33 1.21 Est Cr Clr Drug Dosing 72.4 75.1 82.5 Osmolality Beta-Hydroxybutyric Acd 59.61 H HbA1c: Hemoglobin A1c 11.4 % (4.5-5.6) H 04/24/19 02:13 - Recent Pertinent Medications Outpatient Anti-diabetic Regimen: * Lantus 50 units qam; Novolog 60 units BIDM * A1c = 11.4 % 04/24 The patient is currently receiving: * Basal insulin: Insulin infusion Risk Factors for Insulin Resistance: - Assessment & Plan Assessment & Plan: ASSESSMENT: * 48 yo male type 1 diabetic male admitted for DKA, per patient has not been taking lantus for several days * Patient started on insulin infusion with gap closure this AM, working to transition off of infusion * Insulin infusion running ~2.9 units/hr this morning with [id number] running @150 ml/hr, therefore gave home dose of 50 units lantus this AM to help transition off of drip. Patient was ordered T1DM meal, although with minimal intake * Reevaluated at lunch, BSGs 168,198 and tolerating some PO, discussed with worldwide chief creative officer possible decrease in dextrose to help transition off as patient has tolerated some diet. Per discussion insulin infusion was held and dextrose containing fluid stopped. Concern for either rebound hyperglycemia or hypoglycemia from stopping dextrose therefore will check BSG 1 hour after stopping and adjust based on BSG * May restart drip if BSGs increasing or restart dextrose if patient becoming hypoglycemic * Patient downgraded PLAN FOR INPATIENT GLYCEMIC CONTROL: * Holding outpatient oral diabetes medications * Basal insulin * Lantus 50 units qAM * Bolus insulin * NovoLog per scale ACHS or Q6hrs while NPO * Goal Range: Low 140 mg/dL - High 180 mg/dL * Correction Factor: 25 mg/dL/unit * Nutritional / Prandial insulin per carb ratio of 1 unit per 8 grams CHO consumed * Please note that the plan above was derived based on current level of insulin resistance and hospital stress. These recommendations are appropriate for inpatient admission only. Plan of care upon discharge will need to be reassessed to avoid potential outpatient hypo/hyperglycemia. Thank you.
[2019-04-24 14:35] LABS: BUN Creatinine Ratio 10.6 (10-20); Calcium 7.8 mg/dl (8.5-10.1); Creatinine Clr Calc Pharmacy 86.1 ml/min; Est GFR (African American) 84.6; Magnesium 2.4 mg/dl (1.8-2.4); Phosphorus 1.7 mg/dl (2.5-4.9); Potassium 3.9 mmol/L (3.5-5.1)
--- NOTE | 2019-04-24 17:07 | Hospitalist Progress Note ---
Date of Service April 24, 2019 Assessment & Plan (1) DKA (diabetic ketoacidoses): Improving. Continue fluids, transitioning to subcu insulin. Inciting event either was a massive insulin carb mismatch from his intake at [employer] and subpar home insulin dosing, or given the fact that he had diarrhea in addition to nausea and vomiting, it is possible that his GI symptoms were due to an infectious enteritis not just from the DKA itself. Either way he is improving. Stable for transfer out of ICU (2) Dehydration: Related to DKA and GI losses. Continue IV fluids. (3) Tachycardia: Related to above (4) Vomiting: Related to above, improving, continue supportive care (5) Diarrhea: Resolved. Follow (6) Insulin dependent diabetes mellitus: He shows poor baseline control, and poor insight and understanding on the importance of control. Gave basic education today on "wide care" (high sugars clog arteries) and risk of ischemic outcomes. Ongoing education, definitely needs better insulin regimen as well. (7) DVT prophylaxis: Lovenox (8) Discharge planning issues: Stable for transfer to medical, hopefully home in the next day or 2 depending on his symptoms. Subjective Still having some nausea. Medicine seems to help. No further diarrhea. He notes that this all started in the middle the night after eating [employer]. He has no new complaints, and is slowly feeling better. In discussions of diabetes, he seems to have no clear idea as far as why to keep sugars under control, simply noting that high sugars "make your body work harder"seems to be quite erratic with his insulins, but when he does take it he takes his Lantus in the morning along with 30 of log at breakfast, he takes 30 of log at dinner, and nothing else. He seems to check sugars fairly irregularly at best. Looking over 2 years of A1c's, he has at least been uncontrolled for as long as I have record of Review of Systems Review of Systems: All systems reviewed & are unremarkable except as noted in HPI & below Physical Exam Physical Exam: General he is awake and alert pleasant appears somewhat fatigued but no distress. HEENT normocephalic atraumatic mucous membranes moist. Breathing is unlabored no accessory muscle use good effort. Skin shows no rashes no pallor or icterus. Neuro shows cranial nerves II through XII are grossly intact he shows no gross motor deficits. Results & Data Vital Signs (Past 12 Hours) Vital Signs Temp Pulse Pulse Resp BP BP Pulse Ox 04/24/19 15:29 36.8 C 90 18 137/65 96 04/24/19 14:00 88 19 122/58 L 96 04/24/19 13:00 93 H 13 106/65 97 04/24/19 12:00 93 H 16 136/73 97 04/24/19 11:00 95 H 19 120/68 98 04/24/19 10:00 99 H 17 129/73 100 04/24/19 09:00 36.9 C 89 23 119/58 L 97 04/24/19 08:00 91 H 19 120/67 98 04/24/19 07:00 91 H 20 113/65 97 04/24/19 06:00 91 H 19 124/64 98 04/24/19 05:00 93 H 17 130/66 97 PG Care Time/CCT Total # of Minutes Spent Total Time Spent with Patient: Total time spent is greater than 50% in coordination of care (as documented) at patient's floor/unit and/or counseling patient: (1) DKA (diabetic ketoacidoses) Diabetes mellitus complication detail: without coma Diabetes mellitus type: type 1 Qualified Code(s): E10.10 - Type 1 diabetes mellitus with ketoacidosis without coma (2) Vomiting Nausea presence: with nausea Vomiting Intractability: non-intractable Vomiting type: unspecified Qualified Code(s): R11.2 - Nausea with vomiting, unspecified (3) Diarrhea Diarrhea type: unspecified type Qualified Code(s): R19.7 - Diarrhea, unspecified
[2019-04-24] MEDS: METOCLOPRAMIDE HCL 10 MG TABLET PO SCH (17:58)
[2019-04-25] MEDS: METOCLOPRAMIDE HCL 10 MG TABLET PO SCH ×4 (00:05→17:33)
[2019-04-25] MEDS: INSULIN ASPART 100 UNITS/ML 3 ML PEN SC SCH ×6 (00:11→20:34)
[2019-04-25] MEDS: LEVOTHYROXINE SODIUM 100 MCG TABLET PO SCH (05:30)
[2019-04-25] MEDS: LEVOTHYROXINE SODIUM 200 MCG TABLET PO SCH (05:30)
[2019-04-25] MEDS: DULOXETINE HCL 60 MG CAP PO SCH (08:17)
[2019-04-25] MEDS: ATORVASTATIN 10 MG TAB PO SCH (08:17)
[2019-04-25] MEDS: ENOXAPARIN INJ 40 MG/0.4 ML SYR SQ SCH (08:18)
[2019-04-25] MEDS ORDERED: ACETAMINOPHEN 500 MG TAB PO STA (08:32)
[2019-04-25 08:34] LABS: Basophils # (auto) 0.01 K/uL (0-0.2); Basophils % (auto) 0.1 %; Hematocrit (blood only) 38.2 % (42-52); Hemoglobin 13.2 g/dL (14.0-18.0); Immature Granulocytes # (auto) 0.03 K/uL (0.00-0.02); Immature Granulocytes % (auto) 0.3 %; Lymphocytes # (auto) 1.57 K/uL (1.2-3.4); Lymphocytes % (auto) 15.7 %; Mean Corpuscular Hgb Conc 34.6 g/dL (32-36); Mean Corpuscular Volume 85.3 fL (80-100); Monocytes # (auto) 0.56 K/uL (0.11-0.59); Monocytes % (auto) 5.6 %; Neutrophils # (auto) 7.73 K/uL (1.4-6.5); Neutrophils % (auto) 77.3 %; Platelet Count 212 K/uL (130-400); RDW Coefficient of Variation 14.1 % (11.5-14.5); RDW Standard Deviation 43.8 fL (36.4-46.3); Red Blood Count 4.48 M/uL (4.7-6.1)
[2019-04-25] MEDS ORDERED: INSULIN GLARGINE SOLOSTAR 100 UNITS/ML 3 ML PEN SC ONE (09:00)
[2019-04-25 09:53] LABS: BUN Creatinine Ratio 10.4 (10-20); Calcium 8.3 mg/dl (8.5-10.1); Creatinine Clr Calc Pharmacy 101.9 ml/min; Est GFR (African American) 103.8; Est GFR (Non-African American) 89.5; Potassium 3.5 mmol/L (3.5-5.1)
[2019-04-25] MEDS ORDERED: ALUMINUM/MAGNESIUM SUSP 30 ML UDC PO STA (12:41)
[2019-04-25] MEDS ORDERED: LIDOCAINE HCL VISCOUS SOLN 2% 15 ML UDC PO ONE (12:41)
[2019-04-25] MEDS ORDERED: ONDANSETRON HCL 8 MG in DEXTROSE 5% 50 ML IV ONE (13:00)
--- NOTE | 2019-04-25 18:23 | Hospitalist Progress Note ---
Date of Service April 25, 2019 Assessment & Plan (1) DKA (diabetic ketoacidoses): Improved. sugars now good. needs ongoing education (2) Dehydration: Related to DKA and GI losses. improved (3) Tachycardia: Related to above, improved (4) Vomiting: Related to above, nausea improving. continue supportive care and medications to calm presumed gastritis/indigestion (5) Diarrhea: Resolved. (6) Insulin dependent diabetes mellitus: He shows poor baseline control, and poor insight and understanding on the importance of control. Gave basic education today on "wide care" (high sugars clog arteries) and risk of ischemic outcomes. Ongoing education, definitely needs better insulin regimen at discharge (7) DVT prophylaxis: Lovenox (8) Discharge planning issues: anticipate home once he's reliably eating better (?04/26?) (9) Headache: no somatic dysfunction to suggest tension headache. sx c/w migraine - likely brought on by all of above. no focal neuro deficits, headache was severe but not worst of life, seemed to improve in follow up visits as day progressed. tylenol, supportive care, serial follow up. Subjective seen three times today. overall feeling better than yesterday but headache this morning (improved some), nausea (improved as the day went on but not great) sugars improving doesn't quite feel up to getting home no further diarrhea Review of Systems Review of Systems: All systems reviewed & are unremarkable except as noted in HPI & below Physical Exam Physical Exam: pleasant laying in quiet room in the dark but overall no distress. no suboccipital tenderness. no focal neuro deficits. breathing unlabored no accessory muscles good effort. mild epigastric tenderness no guarding no rebound no rigidity. Results & Data Vital Signs (Past 12 Hours) Vital Signs Temp Pulse Resp BP Pulse Ox 04/25/19 15:34 36.7 C 71 18 150/77 H 96 04/25/19 06:57 36.6 C 92 H 16 151/74 H 96 PG Care Time/CCT Total # of Minutes Spent Total Time Spent with Patient: Total time spent is greater than 50% in coordination of care (as documented) at patient's floor/unit and/or counseling patient: (1) DKA (diabetic ketoacidoses) Diabetes mellitus complication detail: without coma Diabetes mellitus type: type 1 Qualified Code(s): E10.10 - Type 1 diabetes mellitus with ketoacidosis without coma (2) Vomiting Nausea presence: with nausea Vomiting Intractability: non-intractable Vomiting type: unspecified Qualified Code(s): R11.2 - Nausea with vomiting, unspecified (3) Diarrhea Diarrhea type: unspecified type Qualified Code(s): R19.7 - Diarrhea, unspecified
[2019-04-26] MEDS: INSULIN ASPART 100 UNITS/ML 3 ML PEN SC SCH ×4 (00:07→12:42)
[2019-04-26] MEDS: METOCLOPRAMIDE HCL 10 MG TABLET PO SCH ×3 (00:08→12:38)
[2019-04-26] MEDS: LEVOTHYROXINE SODIUM 200 MCG TABLET PO SCH (06:10)
[2019-04-26] MEDS: LEVOTHYROXINE SODIUM 100 MCG TABLET PO SCH (06:10)
[2019-04-26] MEDS: ATORVASTATIN 10 MG TAB PO SCH (08:05)
[2019-04-26] MEDS: DULOXETINE HCL 60 MG CAP PO SCH (08:05)
[2019-04-26 08:15] LABS: Hematocrit (blood only) 41.6 % (42-52); Hemoglobin 14.4 g/dL (14.0-18.0); Mean Corpuscular Hgb Conc 34.6 g/dL (32-36); Mean Corpuscular Volume 86.7 fL (80-100); Platelet Count 205 K/uL (130-400); RDW Coefficient of Variation 13.6 % (11.5-14.5); RDW Standard Deviation 43.5 fL (36.4-46.3)
--- NOTE | 2019-04-26 08:41 | Pharmacy Report ---
Pharmacy Glycemic Short Note 2 - Date of Service April 26, 2019 - Glycemic Short BSG Results (Last 24 hours): 04/25/19 04/25/19 04/25/19 09:05 11:52 16:39 Glucose 213 H POC Glucose 188 H 233 H 04/25/19 04/25/19 04/26/19 20:08 23:50 03:57 Glucose POC Glucose 245 H 162 H 155 H 04/26/19 07:34 Glucose POC Glucose 141 H ASSESSMENT: * Mr. Mendez's BSGs have been reasonably controlled since converting off of the insulin gtt: [phone]. Last night's hyperglycemia likely attributable to a decreased lantus dose yesterday morning. His PO intake yesterday was poor at which point I gave him 40 of lantus (outpt Rx is 50u QAM). Will give full home dose today. PLAN FOR INPATIENT GLYCEMIC CONTROL: * Basal insulin * Lantus 50 units SQ QAM * Bolus insulin - lowered goal range * NovoLog per scale ACHS or Q6hrs while NPO * Goal Range: Low 120 mg/dL - High 160 mg/dL * Correction Factor: 25 mg/dL/unit * Nutritional / Prandial insulin per carb ratio of 1 unit per 8 grams CHO consumed
[2019-04-26 08:44] LABS: BUN Creatinine Ratio 14.8 (10-20); Calcium 8.3 mg/dl (8.5-10.1); Creatinine Clr Calc Pharmacy 140.7 ml/min; Est GFR (African American) 126.8; Est GFR (Non-African American) 109.4; Magnesium 2.2 mg/dl (1.8-2.4); Potassium 3.4 mmol/L (3.5-5.1)
[2019-04-26] MEDS: ENOXAPARIN INJ 40 MG/0.4 ML SYR SQ SCH (08:51)
[2019-04-26 09:00] LABS: Phosphorus 2.6 mg/dl (2.5-4.9)
[2019-04-26] MEDS ORDERED: INSULIN GLARGINE SOLOSTAR 100 UNITS/ML 3 ML PEN SC ONE (09:00)
--- NOTE | 2019-04-26 18:33 | Discharge Summary ---
Date of Service April 26, 2019 Admission HPI Per Admitting Provider 48-year-old male is a insulin-dependent type 1 diabetic presenting with shortness of breath, nausea and vomiting. The patient was found in the ED to have a blood glucose 596. Patient states that over the past 5 days he has neglected to take his Lantus. He has been administering NovoLog throughout the day, but admits to not taking his blood glucose throughout the day. He normally wears a continuous blood glucose monitor, but states that since he has been outside and has been sweating, he decided not to wear it. Patient states that the symptoms began yesterday afternoon. He describes being out in the daytime four wheeling. He subsequently went to [employer] and had a meal that made him feel severely nauseous and he began to vomit. Patient denies history of tobacco use, but states that he drinks alcohol, but contains it to moderate drinking on the weekends. He says that he had 4 beers last night. Review of systems Constitutional; denies fevers, chills, night sweats HEENT; denies sore throat, runny nose, ear pain Respiratory; shortness of breath as described above, denies cough, denies wheezing Cardiac; denies chest pain Abdomen; reports nausea, denies abdominal pain, has episodes of vomiting as described above Principal Diagnosis DKA, uncontrolled type 2 diabetes, indigestion likely related to mild resolving gastritis. Discharge Exam In general he is awake and alert pleasant no distress. HEENT normocephalic atraumatic mucous membranes are moist. No suboccipital tenderness. Breathing is unlabored no accessory muscle use good effort. Abdomen is soft nondistended mild epigastric tenderness better than yesterday no guarding/rebound/rigidity/mass/organomegaly. Neuro shows cranial nerves II through XII be grossly intact gross motor and sensory are intact. 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 sugars now good. Inciting factor was either his gastroenteritis (viral versus food poisoning) skipping insulin, or elements of both. (2) Dehydration: Related to DKA and GI losses. improved (3) Tachycardia: Related to above, improved (4) Vomiting: Related to above, nausea improving. He had ongoing abdominal pain that slowly improved, p.o. intake slowly improved. Given an enteritis appeared to be part of the inciting factor for his DKA, more than likely he was suffering from a little bit of gastritis. He was eating well enough to be able to do okay at home, discharged on an H2 ricardo for about a week, should he not improved to where he is eating and drinking normal after a week of an H2, we requested that he see gastroenterology. (5) Diarrhea: Resolved. (6) Insulin dependent diabetes mellitus: He shows poor baseline control, and poor insight and understanding on the importance of control. Gave basic education on why to care (high sugars clog arteries) and risk of ischemic outcomes. Ongoing education, tried to initiate basal bolus insulin dosing with "soft carb counting" and provided extensive verbal followed by written instructions. (7) DVT prophylaxis: Lovenox utilized during his stay (8) Discharge planning issues: Stable for home, outpatient PCP and endocrine follow-up already scheduled. (9) Headache: no somatic dysfunction to suggest tension headache. sx c/w migraine - likely brought on by all of above. no focal neuro deficits, headache was severe but not worst of life, continues to slowly improve. Total Time Total Time Spent Total Time Spent (In Minutes): >30 Discharge Plan Discharge Items Patient Disposition: Home - Self-Care Reason For Visit: DKA Discharge Diagnosis: Diabetic ketoacidosis, uncontrolled diabetes, upset stomach likely due to gastritis Discharge Goals: Diagnostic testing and Therapeutic intervention Activity: Resume your previous activity Non-emergency contact: Primary Care Provider and Specialist Call non-emergency contact if: you have any medication questions and your symptoms worsen Follow-up/Referrals: [facility] [place] [facility] [Provider Group] - 05/01/19 8:30 am (Please, follow up at [facility] Endocr[facility]ology Office on WednesdayMay 01 at 8:30 am. *If you need to change this appointment, call the office at [phone].) Liam Schroeder III, CRNP [Primary Care Provider] - 04/28/19 9:15 am (Please, follow up at Liam Schroeder's office with his associate, Iwona NASCIMENTO, on WednesdayApril 28 at 9:15 am. *If you need to change this appointment, call the office at [phone].) Diet: Carb Count or DM1 Addtl Provider Instructions: DKA -DKA stands for diabetic ketoacidosis -What happens with this is whenever you have lack of insulin, or a significant physical stressor (in this case the food poisoning/nausea vomiting diarrhea) your body has a rise in sugar -Once the sugar is high, it pulls fluid out of your cells and into your bloodstream -Your kidney see all of this fluid and start p.o. off making the dehydration worse -As the dehydration worsens your adrenal glands make cortisol as a stress response hormone, but unfortunately this rises sugar higher -The cycle repeats itself until urine serious duress and end up admitted to the hospital as happened with you. -This is all improved, and is unlikely to happen again unless you get really sick with some sort of infection, or skip insulin. Gastritis -the nausea appears to be related to an upset//irritated stomach from the gastroenteritis -take zantac twice a day for the next week, that should allow this to heal over. if it's a week from now and you're still hurting in your stomach or having trouble eating well, we'd want you to see gastroenterology to consider an upper endoscopy. It's pretty unlikely this will be the case, however. Uncontrolled diabetes -As we discussed the main reason a concern is that high sugars clog arteries -Anytime your sugar is above about 150 you are blocking a blood vessels that you cannot unblock -In terms of A1c values, and A1c measure his sugars for about 3 months, and any A1c above 7.0 is also indicative of clogging arteries -While the most famous complications of diabetes are blindness, renal failure, and neuropathy (painful burning of the feet); the most common complications are simply heart attacks and strokes -With your prior track record of control (looking at your A1c's over the last 2 years your control unfortunately has been quite poor) it is actually a pleasant surprise that you are not showing any signs of bad vascular disease -As we discussed, while it is quite annoying with diabetes does not go away, ignoring it does not prevent you from clogging arteries. And while it does take time out of a busy day to take care of yourself, once somebody starts having "point of no return" complications such as heart attacks, strokes, bone infections that cause people to have feet amputated, etc., then the illness "owns you" and you are not able to do what she wants to do anyway -While it is high maintenance, it is not difficult for you to take care of yourself, it is absolutely critical that you do so To mimic normal physiology, you are on 2 different insulins. Lantus which is long-acting, and NovoLog which is short acting. -The goal of the Lantus is to cover your "fasting metabolism"when you are not eating, your liver is dumping sugar out into your bloodstream, and you have a little bit of sugar floating around from what you last ate. The Lantus is designed to keep this from staying in your blood and move it into your muscles. -When you injected, Lantus slowly starts to work over about 2 hours, has no real peak of activity, and then slowly wears off over hours 18-24 -While it will change based on your overall eating habits, with what we are seeing in the hospital, it appears that if you are also covering meals well enough with log insulin (see below) somewhere around 30 units of Lantus a day is likely about right -When you check a fasting blood sugar in the morning, this is a reasonable "grade" on your Lantus dose. -NovoLog is a short acting insulin. It kicks in about 15 minutes after you take it, reaches a peak of activity about 90 minutes after you take it, and wears off about 3 to 4 hours after taking it. -It is designed to cover the carbohydrates that are in the food you eat. -Foods with more carbohydrates would require more NovoLog than foods with less carbohydrates. This means that each meal should be somewhat different with how much NovoLog insulin you take, based on the carbohydrates you are about to eat. -With what we are seeing here in the hospital, it appears that roughly 10 units of NovoLog at each meal is a reasonable starting point. -Something very low carb such as eggs and black coffee might only need 5 units of NovoLog, something very heavy in carbohydrates such as spaghetti or pizza may require 15 units of NovoLog. -The best way to "grade your work" on NovoLog dosing is to check a sugar about 90 minutes to 2 hours after you have eaten and given yourself NovoLog. This is because he will be just past the peak of food absorption, and just past the peak of NovoLog action. -In a perfect world you will see a sugar between 100-150 in that 2-hour after you eat sugar check. -If you see a low sugar, that would imply the next time you eat that or something similar you should use less NovoLog -If he see a high sugar, that would imply the next time you eat that or something similar you should use more NovoLog. -Most diabetics I taken care of through the years figure this out fairly quickly with a little bit of "educated trial and error" but this does well to have you dose the amount of NovoLog you take based on the carbohydrates you are about to eat. -It is absolutely critical to check the 2-hour after you eat sugar, gas work ge nerally leads to problems. Most people do not feel high sugars unless they are so high as to lead to DKA. But as we discussed above any sugar above about 150 can start to clog arteries -You will find it more difficult to cover junk food with NovoLog, as it will have way more carbohydrates in it. This can also be a nice lesson on what foods are good or bad for you in general. Prescriptions: New ranitidine HCl [Zantac] 150 mg tablet 150 mg PO BID Qty: 14 RF: 0 Continued atorvastatin 10 mg Tablet 10 mg PO DAILY RF: 0 cyanocobalamin (vitamin B-12) [Vitamin B-12] 1,000 mcg Tablet 1,000 mcg PO DAILY RF: 0 levothyroxine 100 mcg Tablet 100 mcg PO DAILY RF: 0 levothyroxine 200 mcg Tablet 200 mcg PO DAILY RF: 0 ergocalciferol (vitamin D2) [Vitamin D2] 50,000 unit Capsule 50,000 unit PO WK RF: 0 duloxetine 60 mg Capsule,Delayed Release(Dr/Ec) 60 mg PO DAILY RF: 0 albuterol sulfate [Ventolin HFA] 90 mcg/actuation HFA aerosol inhaler 1 - 2 puffs INHALATION Q4H PRN (Reason: shortness of breath or wheezing) RF: 0 Changed Novolog Flexpen U-100 Insulin 100 unit/mL (3 mL) Insulin Pen 10 unit SUBCUT AC Qty: 0 RF: 0 Lantus Solostar U-100 Insulin 100 unit/mL (3 mL) Insulin Pen 30 unit SUBCUT QAM Qty: 0 RF: 0 Discontinued etodolac 500 mg Tablet 500 mg PO BID RF: 0 Stand-Alone Forms: [facility] Discharge Orders: Discharge Order (Routine); Ordered 04/26/19 Ordered By: Norberto Carmichael Admission Data Admit Date/Time: 04/23/19 20:14 Attending Provider: Norberto Carmichael Admit Provider: Kurt Shaw Primary Care Provider: Liam Schroeder III Other Providers: Ace Gray ; Marti Daniel ; Horacio Jameson Service: Intensive Care Unit Other Interventions: Discharge Summary Assessment (RN) Last Done: 04/26/19 13:48 DC Date/Time DO NOT enter until pt leaves facility: 04/26/19 15:14
== END 2019-04-26 15:14 | disposition home or self-care (01) | DRG 638 ==
LOC: ED 16:50 → SUATTDRO 20:14 → 1E 20:14 → 4W 04-24 14:49

== ENCOUNTER 2021-11-23 21:42 | Inpatient (IN) ==
[2021-11-23] MEDS ORDERED: ASPIRIN CHEW 324 MG PO STA (21:50)
[2021-11-23] MEDS ORDERED: NITROGLYCERIN SL 0.4 MG/TAB TAB SL STA (21:52)
--- NOTE | 2021-11-23 22:04 | Emergency Department Note ---
Impression & Plan Chest pain, Abnormal EKG, Acute hyperglycemia ED Provider Note NAME: NADEGE HENDRICKS AGE: 51 SEX: M : 1970 ARRIVES VIA: Walk-In INFORMANT: Patient, ED PROVIDER(S): Bello Bejarano DO CHIEF COMPLAINT: Chest discomfort HPI: The patient is a 51-year-old male who has a history of hypertension and diabetes who presented to the emergency department for an evaluation of chest discomfort. He describes anterior chest discomfort which began approximately 2 hours prior to arrival. He denies having any nausea. He denies having any shortness of breath. He states he has tingling in his upper extremity especially on the right. He also notices some back discomfort. This did occur after eating ice cream. The patient denies having any headache. He presented to the emergency department with his son who thought maybe he had some asymmetry between his eyes but states he has no weakness or speech changes. The patient does not have a history of heart abnormality in the past. He did not take any medication specifically for this discomfort. He does not notice any exertional symptoms. The patient currently rates his pain is moderate. ROS: See above HPI for pertinent positives & negatives. A total of 10 systems reviewed and were otherwise negative. PAST MEDICAL HISTORY: See Below PAST SURGICAL HISTORY: See Below FAMILY HISTORY: See Below SOCIAL HISTORY: See Below HOME MEDICATIONS: See Below ALLERGIES: See Below VITALS: See Below PHYSICAL EXAMINATION: GENERAL: Patient is awake alert in no acute distress patient is resting comfortably and showing no signs of anxiety EYES: The conjunctivae are clear. The pupils are round and reactive. EARS, NOSE, MOUTH AND THROAT: The nose is without any evidence of any deformity. Mucous membranes are moist. Tongue is midline. NECK: The neck is nontender and supple. RESPIRATORY: Normal respiratory effort is noted there is no evidence of wheezing rhonchi or rales CARDIOVASCULAR: Regular rate and rhythm noted there no murmurs rubs or gallops normal S1 normal S2. GASTROINTESTINAL: The abdomen is soft. Abdomen is nontender. MUSCULOSKELETAL/EXTREMITIES: There is no evidence of gross deformity full range of motion is noted in the hips and shoulders. SKIN: There is no obvious evidence of any rash. There are no petechiae, pallor or cyanosis noted. NEUROLOGIC: Patient is awake alert and oriented x3 strength is symmetric patellar reflexes are 2+ bilaterally. No facial droop was noted. MEDICAL DECISION MAKING: The patient is a 51-year-old male who has multiple risk factors for coronary artery disease who presented to emergency department for an evaluation of chest pain. The patient describes anterior chest pain which began 2 hours prior to arrival. The patient was treated with aspirin and nitroglycerin in the emergency department. He had significant pain relief. I discussed the [facility] laboratory and radiographic studies with him. I also discussed the limitations of the emergency department work-up for chest pain with him. He appeared to have some abnormalities on his initial EKG which I thought could be consistent with ischemia. Specifically there was high lateral and posterior ischemic changes. This appeared new compared to his previous tracing. His initial cardiac biomarker was negative. When he was pain-free he had a third EKG which did reveal some improvement. All of his changes on his EKGs are very subtle. It is difficult to rule out acute coronary syndrome in this gentleman. At this time he is pain-free. I discussed his case with the on-call [facility] hospitalist. They have agreed to evaluate the patient in the emergency department for further management and disposition. Triage Nursing notes reviewed. Prior medical records reviewed Vital Signs: reviewed and remarkable for elevated blood pressure. Differential diagnosis: Cardiac ischemia, aortic dissection, pulmonary embolism, pneumothorax, pneumonia, pericarditis, myocarditis, esophageal rupture, GERD, cholecystitis, pancreatitis, musculoskeletal, as well as other pathologies. ER treatment provided: See below Diagnostics interpreted by me: ECG: EKG was obtained in the emergency department. My interpretation is sinus bradycardia 59 bpm. There was no ectopy. Subtle ST segment abnormalities were noted in the high lateral leads. There was ST segment depression noted in V1 and V2. Nonspecific abnormalities were noted in the inferior leads. This was compared to a tracing from April [id number]. The changes noted today are somewhat increased. A second EKG was obtained in the emergency department. My interpretation is normal sinus rhythm at 63 bpm. This EKG appears to be similar to the initial tracing with the inferior and lateral abnormalities. A third EKG was obtained in the emergency department after the patient was treated with aspirin nitroglycerin. The patient was pain-free at that time. I interpretation is normal sinus rhythm at 61 bpm. There is no ectopy. There was significant improvement of the high lateral ST segment abnormalities noted on the earlier tracings. Cardiac Monitoring: An order was placed for continuous cardiac monitoring. The monitor shows a rate of 72 bpm with sinus rhythm. Laboratory studies: As stated above and show below. Imaging studies: See below Consultation(s): I discussed this case with Dr. Park who is on-call for the [facility] group. She will evaluate the patient in the emergency department for further management and disposition. 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) H/O knee surgery RT KNEE X 5 History of carpal tunnel release RT/LEFT History of colonoscopy History of tonsillectomy Family History Brother Colonic polyp Mother Diabetes Myocardial infarction Asthma Heart disease Allergies Father No known health problems Uncle Hearing loss maternal Lung cancer maternal-smoker Other No family history of adverse response to anesthesia No family history of bleeding disorder Denies family history of Ovarian cancer Prostate cancer Breast cancer Colorectal cancer Social History Smoking Status: Never smoker Second Hand Exposure: No; Hx Alcohol Use: No Hx Substance Use: No Preferred Language: Kosovan Communication Ability: Effective Visual Impairment: No Limitations Hearing Ability: Normal Motorcycle Engine Assembler Required: No Beliefs That Will Affect Care: None marital status: Current Living Situation: Spouse Current Living Situation Comment: Lives with ex- current occupational status: employed 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 Feels Safe at Home: Yes Childhood Exposure to Second-Hand Smoke: Yes Dental Care, Regularly: No Physical Activity Frequency: Does not Exercise Seatbelt Use: never Sunscreen Use: No Assistive Devices: Glasses Allergies Allergies Allergy/AdvReac Type Severity Reaction Status Date / Time No Known Allergies Allergy Verified 11/23/21 22:04 Home Meds Home Medications Medication Instructions Recorded Confirmed cyanocobalamin (vitamin B-12) 1,000 mcg PO QAM 02/15/19 11/23/21 1,000 mcg tablet (Vitamin B-12) flash glucose scanning reader #1 ea 01/20/21 11/23/21 (FreeStyle Rhett 14 Day [place]) flash glucose sensor (FreeStyle #1 ea 01/20/21 11/23/21 Rhett 14 Day Sensor) atorvastatin 20 mg tablet 20 mg PO HS 03/17/21 11/23/21 calcitriol 0.5 mcg capsule 0.5 mcg PO QAM 03/17/21 11/23/21 mupirocin 2 % topical ointment 1 applic TOPICAL BID PRN 03/17/21 11/23/21 insulin glargine 100 unit/mL (3 74 unit SUBCUT QAM ml 10/07/21 11/23/21 mL) subcutaneous pen (Lantus Solostar U-100 Insulin) levothyroxine 200 mcg tablet 200 mcg PO DAILYBB 10/10/21 11/23/21 levothyroxine 50 mcg tablet 50 mcg PO DAILYBB 10/10/21 11/23/21 Previous Rx's Medication Instructions Recorded albuterol sulfate 90 mcg/actuation 1 - 2 puffs INHALATION Q4H PRN #18 02/06/20 aerosol inhaler (Ventolin HFA) gm bupropion HCl 100 mg tablet,12 hr 100 mg PO BID #60 ea 11/13/20 sustained-release (Wellbutrin SR) sildenafil 100 mg tablet (Viagra) 100 mg PO DAILY PRN #6 tab 02/19/21 cyclobenzaprine 10 mg tablet 10 mg PO TID PRN #30 tab 03/20/21 gabapentin 100 mg capsule See Rx Instructions PO BID #120 cap 04/28/21 celecoxib 100 mg capsule (Celebrex) 100 mg PO BID PRN #60 cap 09/11/21 insulin aspart U-100 100 unit/mL See Rx Instructions SUBCUT TID #45 09/29/21 (3 mL) subcutaneous pen ml duloxetine 30 mg capsule,delayed 30 mg PO BID #60 cap 10/14/21 release losartan 50 mg tablet 50 mg PO DAILY #30 tab 10/14/21 Results & Data (ED) Vital Signs Vital Signs - 24 hr 11/23/21 21:43 11/23/21 22:13 11/23/21 22:25 Temperature 36.7 C Temperature Source Temporal Artery Scan Pulse Rate 65 Pulse Rate [Apical] 72 Respiratory Rate 18 16 Respiratory Effort / Characteristics Non-Labored Spontaneous Respiratory Depth Normal Respiratory Pattern Regular Blood Pressure 176/89 H Blood Pressure [Right Arm] 151/95 H Blood Pressure Mean 118 Blood Pressure Mean [Right Arm] 113 Pulse Oximetry 98 96 100 Oxygen Delivery Method Room Air Room Air Room Air Sepsis Recent Fever Within 48 Hours No Sepsis New/Unexplained Change in Mental Status No Sepsis Action Taken by Nursing No Action Required Home Medications Current Medication List: was personally reviewed by me Laboratory Data Attestation: I reviewed the patient's lab results. Result diagrams: 11/24/21 06:52 11/24/21 06:52 Lab Results 11/23/21 11/23/21 11/23/21 Range/Units 21:48 21:58 21:58 WBC 8.45 (4.8-10.8) K/uL RBC 5.45 (4.7-6.1) M/uL Hgb 16.4 (14.0-18.0) g/dL Hct 48.4 (42-52) % MCV 88.8 (80-100) fL MCH 30.1 (25-34) pg MCHC 33.9 (32-36) g/dL RDW Std Deviation 44.8 (36.4-46.3) fL RDW Coeff of Brittany 13.7 (11.5-14.5) % Plt Count 246 (130-400) K/uL MPV 11.5 H (7.4-10.4) fL Immature Gran % (Auto) 0.2 % Neut % (Auto) 47.5 % Lymph % (Auto) 44.1 % [place] % (Auto) 5.1 % Eos % (Auto) 2.5 % Baso % (Auto) 0.6 % Neut # (Auto) 4.01 (1.4-6.5) K/uL Lymph # (Auto) 3.73 H (1.2-3.4) K/uL [place] # (Auto) 0.43 (0.11-0.59) K/uL Eos # (Auto) 0.21 (0-0.5) K/uL Baso # (Auto) 0.05 (0-0.2) K/uL Immature Gran # (Auto) 0.02 (0.00-0.02) K/uL Absolute Nucleated RBC ENVIRONMENTAL SCIENTIST Nucleated RBC % (auto) ENVIRONMENTAL SCIENTIST Neutrophils % (Manual) ENVIRONMENTAL SCIENTIST Band Neutrophils % ENVIRONMENTAL SCIENTIST Lymphocytes % (Manual) ENVIRONMENTAL SCIENTIST Prolymphocyte % ENVIRONMENTAL SCIENTIST Reactive Lymphs % (Man) ENVIRONMENTAL SCIENTIST Monocytes % (Manual) ENVIRONMENTAL SCIENTIST Eosinophils % (Manual) ENVIRONMENTAL SCIENTIST Basophils % (Manual) ENVIRONMENTAL SCIENTIST Metamyelocytes % (Man) ENVIRONMENTAL SCIENTIST Myelocytes % (Man) ENVIRONMENTAL SCIENTIST Promyelocytes % (Man) ENVIRONMENTAL SCIENTIST Blast Cells % (Manual) ENVIRONMENTAL SCIENTIST Plasma Cell % (Manual) ENVIRONMENTAL SCIENTIST Other Cells % ENVIRONMENTAL SCIENTIST Nucleated RBC % ENVIRONMENTAL SCIENTIST Neutrophils # (Manual) ENVIRONMENTAL SCIENTIST Band Neutrophils # ENVIRONMENTAL SCIENTIST Total Absolute Neuts ENVIRONMENTAL SCIENTIST Lymphocytes # (Manual) ENVIRONMENTAL SCIENTIST Prolymphocyte # ENVIRONMENTAL SCIENTIST Reactive Lymphs # ENVIRONMENTAL SCIENTIST Total Abs Lymphocytes ENVIRONMENTAL SCIENTIST Monocytes # (Manual) ENVIRONMENTAL SCIENTIST Eosinophils # (Manual) ENVIRONMENTAL SCIENTIST Basophils # (Manual) ENVIRONMENTAL SCIENTIST Metamyelocytes # (Man) ENVIRONMENTAL SCIENTIST Myelocytes # (Manual) ENVIRONMENTAL SCIENTIST Promyelocytes # (Man) ENVIRONMENTAL SCIENTIST Blast Cells # (Man) ENVIRONMENTAL SCIENTIST Plasma Cell # (Manual) ENVIRONMENTAL SCIENTIST Other Cells # ENVIRONMENTAL SCIENTIST Nucleated RBCs # (Man) ENVIRONMENTAL SCIENTIST Hypersegmented Neuts ENVIRONMENTAL SCIENTIST Hyposegmented Neuts ENVIRONMENTAL SCIENTIST Hypogranular Neuts ENVIRONMENTAL SCIENTIST Large Granular Lymphs ENVIRONMENTAL SCIENTIST # Lrg Granular Lymphs ENVIRONMENTAL SCIENTIST Hairy Cells ENVIRONMENTAL SCIENTIST Smudge Cells ENVIRONMENTAL SCIENTIST Toxic Granulation ENVIRONMENTAL SCIENTIST Toxic Vacuolation ENVIRONMENTAL SCIENTIST Dohle Bodies ENVIRONMENTAL SCIENTIST Franko Rods ENVIRONMENTAL SCIENTIST Platelet Estimate ENVIRONMENTAL SCIENTIST Hypogranular Platelets ENVIRONMENTAL SCIENTIST Clumped Platelets ENVIRONMENTAL SCIENTIST Giant Platelets ENVIRONMENTAL SCIENTIST Platelet Satelliting ENVIRONMENTAL SCIENTIST RBC Morphology ENVIRONMENTAL SCIENTIST Polychromasia ENVIRONMENTAL SCIENTIST Hypochromasia ENVIRONMENTAL SCIENTIST Poikilocytosis ENVIRONMENTAL SCIENTIST Basophilic Stippling ENVIRONMENTAL SCIENTIST Anisocytosis ENVIRONMENTAL SCIENTIST Microcytosis ENVIRONMENTAL SCIENTIST Macrocytosis ENVIRONMENTAL SCIENTIST Spherocytes ENVIRONMENTAL SCIENTIST Pappenheimer Bodies ENVIRONMENTAL SCIENTIST Sickle Cells ENVIRONMENTAL SCIENTIST Target Cells ENVIRONMENTAL SCIENTIST Tear Drop Cells ENVIRONMENTAL SCIENTIST Ovalocytes ENVIRONMENTAL SCIENTIST Stomatocytes ENVIRONMENTAL SCIENTIST [place] Bodies ENVIRONMENTAL SCIENTIST Echinocytes ENVIRONMENTAL SCIENTIST Acanthocytes (Spur) ENVIRONMENTAL SCIENTIST Rouleaux ENVIRONMENTAL SCIENTIST RBC Agglutinates ENVIRONMENTAL SCIENTIST Schistocytes ENVIRONMENTAL SCIENTIST RBC Morph Comment ENVIRONMENTAL SCIENTIST Sezary Cell ENVIRONMENTAL SCIENTIST PT 9.6 (9.0-12.0) Seconds INR 0.9 (0.9-1.1) APTT 25.6 (21.0-31.0) Seconds PTT Ratio 1.0 Sodium (136-145) mmol/L Potassium (3.5-5.1) mmol/L Chloride (98-107) mmol/L Carbon Dioxide (21-32) mmol/L Anion Gap (3-11) BUN (6-23) mg/dl Creatinine (0.6-1.4) mg/dl Est Cr Clr Drug Dosing ml/min Est GFR ( Amer) ml/min Est GFR (Non-Af Amer) ml/min BUN/Creatinine Ratio (10-20) Glucose (70-99(Fasting)) mg/dl Calcium (8.5-10.1) mg/dl Phosphorus 4.4 (2.5-4.9) mg/dl Magnesium 2.0 (1.7-2.4) mg/dl Total Bilirubin (0.2-1.0) mg/dl AST (13-39) U/L ALT (7-52) U/L Alkaline Phosphatase (34-104) U/L Troponin I (0-0.04) ng/ml Total Protein (6.0-8.3) gm/dl Albumin (3.4-5.0) gm/dl Globulin (2.5-4.0) gm/dl Albumin/Globulin Ratio (0.9-2) Lipase (11-82) U/L SARS-CoV-2, RNA, NAAT (NEGATIVE) 11/23/21 11/23/21 Range/Units 21:58 22:05 WBC (4.8-10.8) K/uL RBC (4.7-6.1) M/uL Hgb (14.0-18.0) g/dL Hct (42-52) % MCV (80-100) fL MCH (25-34) pg MCHC (32-36) g/dL RDW Std Deviation (36.4-46.3) fL RDW Coeff of Brittany (11.5-14.5) % Plt Count (130-400) K/uL MPV (7.4-10.4) fL Immature Gran % (Auto) % Neut % (Auto) % Lymph % (Auto) % [place] % (Auto) % Eos % (Auto) % Baso % (Auto) % Neut # (Auto) (1.4-6.5) K/uL Lymph # (Auto) (1.2-3.4) K/uL [place] # (Auto) (0.11-0.59) K/uL Eos # (Auto) (0-0.5) K/uL Baso # (Auto) (0-0.2) K/uL Immature Gran # (Auto) (0.00-0.02) K/uL Absolute Nucleated RBC Nucleated RBC % (auto) Neutrophils % (Manual) Band Neutrophils % Lymphocytes % (Manual) Prolymphocyte % Reactive Lymphs % (Man) Monocytes % (Manual) Eosinophils % (Manual) Basophils % (Manual) Metamyelocytes % (Man) Myelocytes % (Man) Promyelocytes % (Man) Blast Cells % (Manual) Plasma Cell % (Manual) Other Cells % Nucleated RBC % Neutrophils # (Manual) Band Neutrophils # Total Absolute Neuts Lymphocytes # (Manual) Prolymphocyte # Reactive Lymphs # Total Abs Lymphocytes Monocytes # (Manual) Eosinophils # (Manual) Basophils # (Manual) Metamyelocytes # (Man) Myelocytes # (Manual) Promyelocytes # (Man) Blast Cells # (Man) Plasma Cell # (Manual) Other Cells # Nucleated RBCs # (Man) Hypersegmented Neuts Hyposegmented Neuts Hypogranular Neuts Large Granular Lymphs # Lrg Granular Lymphs Hairy Cells Smudge Cells Toxic Granulation Toxic Vacuolation Dohle Bodies Franko Rods Platelet Estimate Hypogranular Platelets Clumped Platelets Giant Platelets Platelet Satelliting RBC Morphology Polychromasia Hypochromasia Poikilocytosis Basophilic Stippling Anisocytosis Microcytosis Macrocytosis Spherocytes Pappenheimer Bodies Sickle Cells Target Cells Tear Drop Cells Ovalocytes Stomatocytes [place] Bodies Echinocytes Acanthocytes (Spur) Rouleaux RBC Agglutinates Schistocytes RBC Morph Comment Sezary Cell PT (9.0-12.0) Seconds INR (0.9-1.1) APTT (21.0-31.0) Seconds PTT Ratio Sodium 134 L (136-145) mmol/L Potassium 3.8 (3.5-5.1) mmol/L Chloride 98 (98-107) mmol/L Carbon Dioxide 28 (21-32) mmol/L Anion Gap 8 (3-11) BUN 10 (6-23) mg/dl Creatinine 0.88 (0.6-1.4) mg/dl Est Cr Clr Drug Dosing 118.8 ml/min Est GFR ( Amer) 113.7 ml/min Est GFR (Non-Af Amer) 98.1 ml/min BUN/Creatinine Ratio 11.4 (10-20) Glucose 266 H (70-99(Fasting)) mg/dl Calcium 8.9 (8.5-10.1) mg/dl Phosphorus (2.5-4.9) mg/dl Magnesium (1.7-2.4) mg/dl Total Bilirubin 0.5 (0.2-1.0) mg/dl AST 19 (13-39) U/L ALT 28 (7-52) U/L Alkaline Phosphatase 81 (34-104) U/L Troponin I < 0.03 (0-0.04) ng/ml Total Protein 6.7 (6.0-8.3) gm/dl Albumin 4.3 (3.4-5.0) gm/dl Globulin 2.4 L (2.5-4.0) gm/dl Albumin/Globulin Ratio 1.8 (0.9-2) Lipase 20 (11-82) U/L SARS-CoV-2, RNA, NAAT NEGATIVE (NEGATIVE) Administered Medications Levothyroxine Sodium (Levothyroxine Sodium 50 Mcg Tablet) [facility] Stop: 12/24/21 06:29 Last Admin: 11/24/21 05:41 Dose: 50 mcg Documented by: [id number] Levothyroxine Sodium (Levothyroxine Sodium 200 Mcg Tablet) [facility] Stop: 12/24/21 06:29 Last Admin: 11/24/21 05:41 Dose: 200 mcg Documented by: [id number] Nitroglycerin (Nitroglycerin Sl 0.4 Mg/Tab Tab) 0.4 mg SL Q5M PRN PRN Reason: Chest Pain Stop: 12/24/21 00:44 Last Admin: 11/24/21 05:41 Dose: 0.4 mg Documented by: [id number] Discontinued Medications Aspirin (Aspirin Chew 324 Mg) 324 mg PO NOW STA Stop: 11/23/21 21:51 Last Admin: 11/23/21 22:02 Dose: 324 mg Documented by: [id number] Insulin Human Regular (Novolin-R Insulin Per Unit Charge) 5 units IV NOW STA Stop: 11/24/21 00:18 Last Admin: 11/24/21 01:42 Dose: 5 units Documented by: [id number] Cosigned by: [id number] Nitroglycerin (Nitroglycerin Sl 0.4 Mg/Tab Tab) 0.4 mg SL NOW STA Stop: 11/23/21 21:53 Last Admin: 11/23/21 22:03 Dose: 0.4 mg Documented by: [id number] Imaging Data Radiologist's Impression: Chest X-Ray 02/27/22 21:50 XR chest 1V portable CLINICAL HISTORY: Atypical chest pain TECHNIQUE: Single frontal radiograph of the chest was obtained. Comparison: Comparison is made to chest one view 10/10/2021 FINDINGS: No lines and tubes are seen. The cardiomediastinal silhouette is normal. The lungs are clear. No evidence of pleural effusion or pneumothorax. IMPRESSION: No acute chest disease. ACT 112: Negative or not required by law. Electronically signed by: Matthew Chavez M.D. 11/23/2021 10:04 PM Discharge Plan Visit Data Chief Complaint: Chest Pain Stated Complaint: CHEST PAIN, R ARM/BACK PAIN ED Provider: Bello Bejarano Discharge Problem: Chest pain, Abnormal EKG, Acute hyperglycemia Patient Disposition: Admitted As Inpatient Discharge Instructions Interventions: ED Discharge Assessment Last Done: 11/24/21 00:12 Discharge Problem: Chest pain Qualifiers: Chest pain type: unspecified Qualified Code(s): R07.9 - Chest pain, unspecified
[2021-11-23 22:22] LABS: INR 0.9 (0.9-1.1); Partial Thromboplastin Time 25.6 Seconds (21.0-31.0); Prothrombin Time 9.6 Seconds (9.0-12.0)
[2021-11-23 22:30] LABS: Troponin I < 0.03 ng/ml (0-0.04)
[2021-11-23 22:31] LABS: Alanine Aminotransferase 28 U/L (7-52); Albumin Globulin Ratio 1.8 (0.9-2); Albumin Level 4.3 gm/dl (3.4-5.0); Alkaline Phosphatase 81 U/L (34-104); Anion Gap 8 (3-11); Aspartate Aminotransferase 19 U/L (13-39); BUN Creatinine Ratio 11.4 (10-20); Bilirubin,Total 0.5 mg/dl (0.2-1.0); Blood Urea Nitrogen 10 mg/dl (6-23); Calcium 8.9 mg/dl (8.5-10.1); Carbon Dioxide 28 mmol/L (21-32); Chloride 98 mmol/L (98-107); Creatinine Clr Calc Pharmacy 118.8 ml/min; Est GFR (African American) 113.7 ml/min; Est GFR (Non-African American) 98.1 ml/min; Globulin 2.4 gm/dl (2.5-4.0); Glucose 266 mg/dl (70-99(Fasting)); Lipase 20 U/L (11-82); Potassium 3.8 mmol/L (3.5-5.1); Sodium 134 mmol/L (136-145); Total Protein 6.7 gm/dl (6.0-8.3)
[2021-11-23 22:32] LABS: Basophils # (auto) 0.05 K/uL (0-0.2); Basophils % (auto) 0.6 %; Eosinophils # (auto) 0.21 K/uL (0-0.5); Eosinophils % (auto) 2.5 %; Hematocrit (blood only) 48.4 % (42-52); Hemoglobin 16.4 g/dL (14.0-18.0); Immature Granulocytes # (auto) 0.02 K/uL (0.00-0.02); Immature Granulocytes % (auto) 0.2 %; Lymphocytes # (auto) 3.73 K/uL (1.2-3.4); Lymphocytes % (auto) 44.1 %; Mean Corpuscular Hemoglobin 30.1 pg (25-34); Mean Corpuscular Hgb Conc 33.9 g/dL (32-36); Mean Corpuscular Volume 88.8 fL (80-100); Mean Platelet Volume 11.5 fL (7.4-10.4); Monocytes # (auto) 0.43 K/uL (0.11-0.59); Monocytes % (auto) 5.1 %; Neutrophils # (auto) 4.01 K/uL (1.4-6.5); Neutrophils % (auto) 47.5 %; Platelet Count 246 K/uL (130-400); RDW Coefficient of Variation 13.7 % (11.5-14.5); RDW Standard Deviation 44.8 fL (36.4-46.3); Red Blood Count 5.45 M/uL (4.7-6.1); White Blood Count 8.45 K/uL (4.8-10.8)
--- NOTE | 2021-11-23 23:17 | History & Physical Report ---
Date of Service November 23, 2021 Assessment & Plan (1) Chest pain: Plan: 51yo male with history of DM, HTN, HLP and FHx of CAD presenting with acute onset substernal chest pain at 20:00 tonight. Resolved with ASA and Nitro. Troponin x 1 negative. Serial EKGs with subtle ST changes. -Observation to medical with telemetry -Trend Troponin q 6 hours x 3 sets -Nitro PRN chest pain -EKG as needed with chest pain -Stress echocardiogram ordered for AM pending negative troponin and chest pain free (2) HTN (hypertension): Plan: Chronic. Blood pressure mildly elevated at present, 151/95 -Continue Losartan 50mg po daily -Continue to monitor (3) HLD (hyperlipidemia): Plan: Chronic. Last lipid panel from 10/07/21. Total cholesterol of 125, LDL=72, VLDL=14, HDL=39 and TG of 72 -Continue Atorvastatin 20mg po daily -May need to increase to high intensity on DC pending findings (4) Insulin dependent diabetes mellitus: Plan: Patient with poorly controlled DM at present with associated peripheral neuropathy. Last LwiZ6A=42.3 on 10/07/21. He reports compliance with his medications. He is on Lantus 65u daily in AM and Novolog sliding scale. Elevated blood sugar at present at 266. Patient follows with [facility]. -Will give 5u IV insulin now -Lantus 25u BID -ISS -Goal blood sugar 100 -140 -Continue Neurontin and Cymbalta for neuropathy (5) Hypothyroidism: Plan: Chronic. TSH within normal limits on 10/07/21 at 1.6 -Continue Synthroid 200mcg daily (6) Asthma: Plan: Chronic. Well controlled. No cough or wheeze. Some SOB with chest pain reported, most likely unrelated to asthma -Albuterol as needed (7) Depression: Plan: Chronic. Well controlled on medications -Continue Duloxetine 30mg po BID -Continue Bupropion 100mg po BID (8) Secondary hyperparathyroidism: Plan: Chronic -Continue Calcitriol 0.5mg po qAM Admission and Anticipated Discharge Date Admission Date: F/E/N - [facility]. Monitor electrolytes and replete as needed. Mg and PO4 ordered x 1. NPO for possible stress test in AM Ppx - Low risk for DVT. No ppx at this time Code - Full per discussion with patient Dispo - Observation to medical with telemetry History of Present Illness Chief Complaint: chest pain Primary Care Provider: Liam Schroeder, ANDREY, AZAM Logan Mendez is a pleasant 51yo male with history of poorly controlled DM, HTN, HLP and FHx of premature CAD (Mother with first OR in her 50's, CABG in 60's and maternal cousin with MIs in their 40's) presenting with chest pain. Patient was at [facility] around 20:00 when he developed acute onset substernal chest pain. 7/10 in severity. Squeezing pressure with radiation through to his back and some radiation and tingling in his right arm. He had some associated SOB as well. Denies diaphoresis, nausea, lightheadedness. Patient was given ASA 324mg and Nitro 0.4mg with resolution of chest pain. Now is chest pain free. He has no known history of cardiac disease, CAD, CHF or Arrhythmia. He has had a stress test many years ago when he was 27yo which was unremarkable. He has never had a cardiac catheterization. 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 He denies exertional chest discomfort or SOB. He does not exercise otherwise. No additional complaints a this time. ER Course: ASA 324, Nitro Allergies Allergy/AdvReac Type Severity Reaction Status Date / Time No Known Allergies Allergy Verified 11/23/21 22:04 Home Medications Medication Instructions Recorded Confirmed Type cyanocobalamin (vitamin B-12) 1,000 mcg PO QAM 02/15/19 11/23/21 History 1,000 mcg tablet (Vitamin B-12) albuterol sulfate 90 mcg/actuation 1 - 2 puffs INHALATION Q4H PRN #18 02/06/20 11/23/21 Rx aerosol inhaler (Ventolin HFA) gm bupropion HCl 100 mg tablet,12 hr 100 mg PO BID #60 ea 11/13/20 11/23/21 Rx sustained-release (Wellbutrin SR) flash glucose scanning reader #1 ea 01/20/21 11/23/21 History (FreeStyle Rhett 14 Day [place]) flash glucose sensor (FreeStyle #1 ea 01/20/21 11/23/21 History Rhett 14 Day Sensor) sildenafil 100 mg tablet (Viagra) 100 mg PO DAILY PRN #6 tab 02/19/21 11/23/21 Rx atorvastatin 20 mg tablet 20 mg PO HS 03/17/21 11/23/21 History calcitriol 0.5 mcg capsule 0.5 mcg PO QAM 03/17/21 11/23/21 History mupirocin 2 % topical ointment 1 applic TOPICAL BID PRN 03/17/21 11/23/21 History cyclobenzaprine 10 mg tablet 10 mg PO TID PRN #30 tab 03/20/21 11/23/21 Rx gabapentin 100 mg capsule See Rx Instructions PO BID #120 cap 04/28/21 11/23/21 Rx celecoxib 100 mg capsule (Celebrex) 100 mg PO BID PRN #60 cap 09/11/21 11/23/21 Rx insulin aspart U-100 100 unit/mL See Rx Instructions SUBCUT TID #45 09/29/21 11/23/21 Rx (3 mL) subcutaneous pen ml insulin glargine 100 unit/mL (3 74 unit SUBCUT QAM ml 10/07/21 11/23/21 History mL) subcutaneous pen (Lantus Solostar U-100 Insulin) levothyroxine 200 mcg tablet 200 mcg PO DAILYBB 10/10/21 11/23/21 History levothyroxine 50 mcg tablet 50 mcg PO DAILYBB 10/10/21 11/23/21 History duloxetine 30 mg capsule,delayed 30 mg PO BID #60 cap 10/14/21 11/23/21 Rx release losartan 50 mg tablet 50 mg PO DAILY #30 tab 10/14/21 11/23/21 Rx Past Med/Surg History Medical History Anxiety Asthma USES INHALER IN THE "SUMMER TIME" Diabetes mellitus, type 2 Diabetic peripheral neuropathy associated with type 2 diabetes mellitus HLD (hyperlipidemia) HTN (hypertension) Hx of colonic polyp Hx of gout Hypothyroidism Migraine Osteoarthritis Surgical History H/O foot surgery LEFT FOOT (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) H/O knee surgery RT KNEE X 5 History of carpal tunnel release RT/LEFT History of colonoscopy History of tonsillectomy Family History Brother Colonic polyp Mother Diabetes Myocardial infarction Asthma Heart disease Allergies Father No known health problems Uncle Hearing loss maternal Lung cancer maternal-smoker Other No family history of adverse response to anesthesia No family history of bleeding disorder Denies family history of Ovarian cancer Prostate cancer Breast cancer Colorectal cancer Social History Smoking Status: Never smoker Second Hand Exposure: Yes (MOTHER SMOKES); Hx Alcohol Use: Yes Alcohol type: beer Alcohol Intake Frequency: Monthly or Less Hx Substance Use: No Preferred Language: Slovenian Communication Ability: Effective Visual Impairment: No Limitations Hearing Ability: Normal Last Trimmer Required: No Beliefs That Will Affect Care: None marital status: Current Living Situation: Alone current occupational status: employed 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 Feels Safe at Home: Yes Childhood Exposure to Second-Hand Smoke: Yes Dental Care, Regularly: No Physical Activity Frequency: Does not Exercise Seatbelt Use: never Sunscreen Use: No Assistive Devices: Glasses Review of Systems Review of Systems: All systems reviewed & are unremarkable except as noted in HPI & below Physical Exam Physical Exam: General: patient resting comfortably, NAD, non-toxic in appearance, AA&O x 4 Skin: warm, dry, intact, no rashes or lesions HEENT: NC/AT, PERRL, EOMI, anicteric sclera, conjunctiva without injection, external ear normal to inspection and nontender, nares patent, moist mucus membranes, dentition intact, no oropharyngeal lesions, neck supple, trachea midline, no LAD, no thyromegaly, no JVD Heart: +S1/S2, regular, no m/r/g, no reproducible chest wall pain with palpation Lungs: equal air entry bilaterally, no rales/rhonchi/wheezes Abd: +BS, soft, NT/ND, no masses/organomegaly/ascites, no epigastric pain Ext: warm, 2+ pulses in UE/LE bilaterally, no clubbing/cyanosis or edema Neuro: nonfocal, patient AA&O x 4, speech intact, no facial droop, moving all extremities on command with equal strength 5/5 Results & Data Results & Data ([facility]) Vital Signs (Past 12 Hours) Vital Signs Temp Pulse Pulse Resp BP BP Pulse Ox 11/23/21 22:25 72 16 151/95 H 100 11/23/21 22:13 96 11/23/21 21:43 36.7 C 65 18 176/89 H 98 Laboratory Results Laboratory Results WBC 8.45 K/uL (4.8-10.8) 11/23/21 21:58 RBC 5.45 M/uL (4.7-6.1) 11/23/21 21:58 Hgb 16.4 g/dL (14.0-18.0) 11/23/21 21:58 Hct 48.4 % (42-52) 11/23/21 21:58 MCV 88.8 fL (80-100) 11/23/21 21:58 MCH 30.1 pg (25-34) 11/23/21 21:58 MCHC 33.9 g/dL (32-36) 11/23/21 21:58 RDW Std Deviation 44.8 fL (36.4-46.3) 11/23/21 21:58 RDW Coeff of Brittany 13.7 % (11.5-14.5) 11/23/21 21:58 Plt Count 246 K/uL (130-400) 11/23/21 21:58 MPV 11.5 fL (7.4-10.4) H 11/23/21 21:58 Immature Gran % (Auto) 0.2 % 11/23/21 21:58 Neut % (Auto) 47.5 % 11/23/21 21:58 Lymph % (Auto) 44.1 % 11/23/21 21:58 Chambers % (Auto) 5.1 % 11/23/21 21:58 Eos % (Auto) 2.5 % 11/23/21 21:58 Baso % (Auto) 0.6 % 11/23/21 21:58 Neut # (Auto) 4.01 K/uL (1.4-6.5) 11/23/21 21:58 Lymph # (Auto) 3.73 K/uL (1.2-3.4) H 11/23/21 21:58 Chambers # (Auto) 0.43 K/uL (0.11-0.59) 11/23/21 21:58 Eos # (Auto) 0.21 K/uL (0-0.5) 11/23/21 21:58 Baso # (Auto) 0.05 K/uL (0-0.2) 11/23/21 21:58 Immature Gran # (Auto) 0.02 K/uL (0.00-0.02) 11/23/21 21:58 Absolute Nucleated RBC CABINET FINISHER 11/23/21 21:58 Nucleated RBC % (auto) CABIN[employer] FINISHER 11/23/21 21:58 Neutrophils % (Manual) CABINET FINISHER 11/23/21 21:58 Band Neutrophils % CABINET FINISHER 11/23/21 21:58 Lymphocytes % (Manual) CABINET FINISHER 11/23/21 21:58 Prolymphocyte % CABIN[employer] FINISHER 11/23/21 21:58 Reactive Lymphs % (Man) CABIN[employer] FINISHER 11/23/21 21:58 Monocytes % (Manual) CABINET FINISHER 11/23/21 21:58 Eosinophils % (Manual) CABINET FINISHER 11/23/21 21:58 Basophils % (Manual) CABIN[employer] FINISHER 11/23/21 21:58 Metamyelocytes % (Man) CAB[employer] FINISHER 11/23/21 21:58 Myelocytes % (Man) CABINET FINISHER 11/23/21 21:58 Promyelocytes % (Man) CABINET FINISHER 11/23/21 21:58 Blast Cells % (Manual) CABIN[employer] FINISHER 11/23/21 21:58 Plasma Cell % (Manual) CABINET FINISHER 11/23/21 21:58 Other Cells % CABINET FINISHER 11/23/21 21:58 Nucleated RBC % CABINET FINISHER 11/23/21 21:58 Neutrophils # (Manual) CABINET FINISHER 11/23/21 21:58 Band Neutrophils # CABINET FINISHER 11/23/21 21:58 Total Absolute Neuts [employer]INET FINISHER 11/23/21 21:58 Lymphocytes # (Manual) CABINET FINISHER 11/23/21 21:58 Prolymphocyte # CABINET FINISHER 11/23/21 21:58 Reactive Lymphs # CABINET FINISHER 11/23/21 21:58 Total Abs Lymphocytes CABINET FINISHER 11/23/21 21:58 Monocytes # (Manual) CABINET FINISHER 11/23/21 21:58 Eosinophils # (Manual) CABINET FINISHER 11/23/21 21:58 Basophils # (Manual) CABINET FINISHER 11/23/21 21:58 Metamyelocytes # (Man) CABINET FINISHER 11/23/21 21:58 Myelocytes # (Manual) CABINET FINISHER 11/23/21 21:58 Promyelocytes # (Man) CABINET FINISHER 11/23/21 21:58 Blast Cells # (Man) CABINET FINISHER 11/23/21 21:58 Plasma Cell # (Manual) CABINET FINISHER 11/23/21 21:58 Other Cells # CABINET FINISHER 11/23/21 21:58 Nucleated RBCs # (Man) CABINET FINISHER 11/23/21 21:58 Hypersegmented Neuts CABINET FINISHER 11/23/21 21:58 Hyposegmented Neuts CABINET FINISHER 11/23/21 21:58 Hypogranular Neuts CABINET FINISHER 11/23/21 21:58 Large Granular Lymphs CABINET FINISHER 11/23/21 21:58 # Lrg Granular Lymphs CABINET FINISHER 11/23/21 21:58 Hairy Cells CABINET FINISHER 11/23/21 21:58 Smudge Cells CAB[employer] FINISHER 11/23/21 21:58 Toxic Granulation CAB[employer]ET FINISHER 11/23/21 21:58 Toxic Vacuolation CABINET FINISHER 11/23/21 21:58 Dohle Bodies CABINET FINISHER 11/23/21 21:58 Franko Rods CABINET FINISHER 11/23/21 21:58 Platelet Estimate CABINET FINISHER 11/23/21 21:58 Hypogranular Platelets CABINET FINISHER 11/23/21 21:58 Clumped Platelets CABINET FINISHER 11/23/21 21:58 Giant Platelets CABINET FINISHER 11/23/21 21:58 Platelet Satelliting CABIN[employer] FINISHER 11/23/21 21:58 RBC Morphology CABINET FINISHER 11/23/21 21:58 Polychromasia CABINET FINISHER 11/23/21 21:58 Hypochromasia CABINET FINISHER 11/23/21 21:58 Poikilocytosis CABINET FINISHER 11/23/21 21:58 Basophilic Stippling CABINET FINISHER 11/23/21 21:58 Anisocytosis CABINET FINISHER 11/23/21 21:58 Microcytosis CABINET FINISHER 11/23/21 21:58 Macrocytosis CABINET FINISHER 11/23/21 21:58 Spherocytes CABINET FINISHER 11/23/21 21:58 Pappenheimer Bodies CABINET FINISHER 11/23/21 21:58 Sickle Cells CABINET FINISHER 11/23/21 21:58 Target Cells CABINET FINISHER 11/23/21 21:58 Tear Drop Cells CABINET FINISHER 11/23/21 21:58 Ovalocytes CABINET FINISHER 11/23/21 21:58 Stomatocytes CABINET FINISHER 11/23/21 21:58 [place] Bodies CABINET FINISHER 11/23/21 21:58 Echinocytes CABINET FINISHER 11/23/21 21:58 Acanthocytes (Spur) CABINET FINISHER 11/23/21 21:58 Rouleaux CABINET FINISHER 11/23/21 21:58 RBC Agglutinates CABINET FINISHER 11/23/21 21:58 Schistocytes CABINET FINISHER 11/23/21 21:58 RBC Morph Comment CABINET FINISHER 11/23/21 21:58 Sezary Cell CABINET FINISHER 11/23/21 21:58 PT 9.6 Seconds (9.0-12.0) 11/23/21 21:58 INR 0.9 (0.9-1.1) 11/23/21 21:58 APTT 25.6 Seconds (21.0-31.0) 11/23/21 21:58 PTT Ratio 1.0 11/23/21 21:58 Sodium 134 mmol/L (136-145) L 11/23/21 21:58 Potassium 3.8 mmol/L (3.5-5.1) 11/23/21 21:58 Chloride 98 mmol/L (98-107) 11/23/21 21:58 Carbon Dioxide 28 mmol/L (21-32) 11/23/21 21:58 Anion Gap 8 (3-11) 11/23/21 21:58 BUN 10 mg/dl (6-23) 11/23/21 21:58 Creatinine 0.88 mg/dl (0.6-1.4) 11/23/21 21:58 Est Cr Clr Drug Dosing 118.8 ml/min 11/23/21 21:58 Est GFR ( Amer) 113.7 ml/min 11/23/21 21:58 Est GFR (Non-Af Amer) 98.1 ml/min 11/23/21 21:58 BUN/Creatinine Ratio 11.4 (10-20) 11/23/21 21:58 Glucose 266 mg/dl (70-99(Fasting)) H 11/23/21 21:58 Calcium 8.9 mg/dl (8.5-10.1) 11/23/21 21:58 Total Bilirubin 0.5 mg/dl (0.2-1.0) 11/23/21 21:58 AST 19 U/L (13-39) 11/23/21 21:58 ALT 28 U/L (7-52) 11/23/21 21:58 Alkaline Phosphatase 81 U/L (34-104) 11/23/21 21:58 Troponin I < 0.03 ng/ml (0-0.04) 11/23/21 21:58 Total Protein 6.7 gm/dl (6.0-8.3) 11/23/21 21:58 Albumin 4.3 gm/dl (3.4-5.0) 11/23/21 21:58 Globulin 2.4 gm/dl (2.5-4.0) L 11/23/21 21:58 Albumin/Globulin Ratio 1.8 (0.9-2) 11/23/21 21:58 Lipase 20 U/L (11-82) 11/23/21 21:58 SARS-CoV-2, RNA, NAAT NEGATIVE (NEGATIVE) 11/23/21 22:05 Impressions Chest X-Ray 11/23/21 21:50 XR chest 1V portable CLINICAL HISTORY: Atypical chest pain TECHNIQUE: Single frontal radiograph of the chest was obtained. Comparison: Comparison is made to chest one view 10/10/2021 FINDINGS: No lines and tubes are seen. The cardiomediastinal silhouette is normal. The lungs are clear. No evidence of pleural effusion or pneumothorax. IMPRESSION: No acute chest disease. ACT 112: Negative or not required by law. Electronically signed by: Matthew Chavez M.D. 11/23/2021 10:04 PM ECG Additional Comments: Serial EKGs with TWI in III - resolved on EKG #3 Code Status & VTE Plan VTE Prophylaxis Plan VTE Prophylaxis will be ordered: No PG Care Time/CCT Total # of Minutes Spent Total Time Spent with Patient: Total time spent is greater than 50% in coordination of care (as documented) at patient's floor/unit and/or counseling patient: Coding Level of Care Code INT OBSERVATION CARE 70M LVL 3 Diagnoses Chest pain R07.9 Chest pain type: unspecified Asthma J45.909 HTN (hypertension) I10 HLD (hyperlipidemia) E78.5 Insulin dependent diabetes mellitus E11.9; Z79.4 Hypothyroidism E03.9 Depression F32.9 Secondary hyperparathyroidism N25.81 (1) Chest pain Chest pain type: unspecified Qualified Code(s): R07.9 - Chest pain, unspecified
[2021-11-24] MEDS ORDERED: NovoLIN-R INSULIN PER UNIT CHARGE IV STA (00:17)
[2021-11-24] MEDS ORDERED: GLUCOSE 40% GEL 15 GM TUBE PO PRN (00:45)
[2021-11-24] MEDS ORDERED: CARBOHYDRATES FOR HYPOGLYCEMIA PO PRN (00:45)
[2021-11-24] MEDS ORDERED: GLUCOSE 10 TABS/TUBE PO PRN (00:45)
[2021-11-24] MEDS ORDERED: NITROGLYCERIN SL 0.4 MG/TAB TAB SL PRN (00:45)
[2021-11-24] MEDS ORDERED: ONDANSETRON INJ 2 MG/ML 2 ML VIAL IV PRN (00:45)
[2021-11-24] MEDS ORDERED: DEXTROSE 50% 50 ML SYRINGE IV PRN (00:45)
[2021-11-24] MEDS ORDERED: ALBUTEROL HFA 8 GM INHALER INH PRN (00:45)
[2021-11-24] MEDS ORDERED: GLUCAGON FOR INJ 1 MG VIAL SQ PRN (00:45)
[2021-11-24 01:15] LABS: Phosphorus 4.4 mg/dl (2.5-4.9)
[2021-11-24] MEDS: LEVOTHYROXINE SODIUM 200 MCG TABLET PO SCH (05:41)
[2021-11-24] MEDS: LEVOTHYROXINE SODIUM 50 MCG TABLET PO SCH (05:41)
[2021-11-24 07:13] LABS: Basophils # (auto) 0.02 K/uL (0-0.2); Basophils % (auto) 0.2 %; Eosinophils # (auto) 0.15 K/uL (0-0.5); Eosinophils % (auto) 1.7 %; Hematocrit (blood only) 45.3 % (42-52); Hemoglobin 15.3 g/dL (14.0-18.0); Immature Granulocytes # (auto) 0.01 K/uL (0.00-0.02); Immature Granulocytes % (auto) 0.1 %; Lymphocytes # (auto) 3.66 K/uL (1.2-3.4); Lymphocytes % (auto) 40.8 %; Mean Corpuscular Hemoglobin 29.9 pg (25-34); Mean Corpuscular Hgb Conc 33.8 g/dL (32-36); Mean Corpuscular Volume 88.6 fL (80-100); Monocytes # (auto) 0.36 K/uL (0.11-0.59); Neutrophils # (auto) 4.78 K/uL (1.4-6.5); Neutrophils % (auto) 53.2 %; Platelet Count 233 K/uL (130-400); RDW Coefficient of Variation 13.7 % (11.5-14.5); RDW Standard Deviation 44.8 fL (36.4-46.3); Red Blood Count 5.11 M/uL (4.7-6.1); White Blood Count 8.98 K/uL (4.8-10.8)
[2021-11-24 07:43] LABS: BUN Creatinine Ratio 10.1 (10-20); Calcium 8.6 mg/dl (8.5-10.1); Creatinine Clr Calc Pharmacy 122.2 ml/min; Est GFR (African American) 118.8 ml/min; Est GFR (Non-African American) 102.5 ml/min
[2021-11-24 07:51] LABS: Troponin I 4.03 ng/ml (0-0.04)
[2021-11-24] MEDS: CALCITRIOL 0.25 MCG CAPSULE PO SCH (09:00)
[2021-11-24] MEDS: LOSARTAN POTASSIUM 50 MG TAB PO SCH (09:00)
[2021-11-24] MEDS: GABAPENTIN 100 MG CAP PO SCH ×2 (09:00→19:47)
[2021-11-24] MEDS: buPROPion SR 100 MG TABCR PO SCH ×2 (09:01→19:48)
[2021-11-24] MEDS: DULoxetine HCL 30 MG CAP PO SCH ×2 (09:01→19:48)
[2021-11-24] MEDS: INSULIN GLARGINE SOLOSTAR 100 UNITS/ML 3 ML PEN SC SCH ×2 (09:01→20:40)
[2021-11-24] MEDS: INSULIN ASPART PER UNIT SC SCH ×4 (09:02→20:38)
[2021-11-24] MEDS ORDERED: Heparin IV Adult Wt-Based Standard *NO* Bolus Protocol IV SCH (09:12)
[2021-11-24] MEDS ORDERED: HEPARIN SODIUM/DEXTROSE 25,000 UNITS/500 ML BAG IV SCH (09:30)
--- NOTE | 2021-11-24 11:16 | XCELERA ---
[id number]
--- NOTE | 2021-11-24 11:16 | Cardiology Consultation ---
Date of Consultation November 24, 2021 Assessment & Plan (1) Acute coronary syndromes: -symptoms are classic for unstable angina pectoris. -no acute EKG changes. -troponin now elevated at 4.03. -agree with heparin drip. -and aspirin 81 mg daily. -consider addition of low-dose metoprolol tartrate. -increase atorvastatin dose. -urgent cardiac catheterization today. (2) HTN (hypertension): -adequate control on current regimen. (3) HLD (hyperlipidemia): -would increase dose of atorvastatin to at least 40 mg q.h.s.. History of Present Illness Attending Physician: Erik Keating History of Present Illness Mr. Mendez is a 51-year-old male admitted yesterday with a chest pain syndrome and now an elevated troponin I level. This consultation was ordered to assist in his cardiac management. The patient was in his usual state of health until approximately 8:00 p.m. last evening. Patient claims that he was quite upset as he arrived at a store just after it closed. He then had the abrupt onset a substernal chest squeezing sen sation that radiated to his back and right upper extremity. There was associated shortness of breath, but no nausea, vomiting, or diaphoresis. His symptoms were persistent for approximately 1 hour when he decided to proceed to the emergency room with his son. On arrival here, the patient received sublingual nitroglycerin and chewed an aspirin tablet. His symptoms resolved completely. He feels he had symptoms for a total of 2 hours. He was well until approximately 6:00 a.m. when he had a recurrence of his discomfort and was given a sublingual nitroglycerin tablet. His symptoms resolved within 5 minutes. The patient has been vigorous both home and work. He has not experienced any exertional chest pain or limiting dyspnea. He further denies syncope, presyncope, PND, orthopnea, palpitations, lower extremity edema, and claudication. The patient has never known of a cardiac event. He has never had a cardiac catheterization or stress test. Currently, patient is resting comfortably in bed without complaints. We have discussed need to proceed with an urgent cardiac catheterization. The patient understands and agrees. Past medical and surgical history 1. Hypertension 2. Hypercholesterolemia 3. Diabetes mellitus 4. Hypothyroidism 5. Asthma 6. Gout 7. Migraine headaches 8. Depression 9. DJD 10. Colonic polyps 11. Bilateral carpal tunnel release 12. Left foot hardware 13. 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 Father's history is unknown Review of systems A 10 point review systems undertaken and negative except that described above. Allergies Allergy/AdvReac Type Severity Reaction Status Date / Time No Known Allergies Allergy Verified 11/23/21 22:04 Home Medications Medication Instructions Recorded Confirmed Type cyanocobalamin (vitamin B-12) 1,000 mcg PO QAM 02/15/19 11/23/21 History 1,000 mcg tablet (Vitamin B-12) albuterol sulfate 90 mcg/actuation 1 - 2 puffs INHALATION Q4H PRN #18 02/06/20 11/23/21 Rx aerosol inhaler (Ventolin HFA) gm bupropion HCl 100 mg tablet,12 hr 100 mg PO BID #60 ea 11/13/20 11/23/21 Rx sustained-release (Wellbutrin SR) flash glucose scanning reader #1 ea 01/20/21 11/23/21 History (FreeStyle Rhett 14 Day [place]) flash glucose sensor (FreeStyle #1 ea 01/20/21 11/23/21 History Rhett 14 Day Sensor) sildenafil 100 mg tablet (Viagra) 100 mg PO DAILY PRN #6 tab 02/19/21 11/23/21 Rx atorvastatin 20 mg tablet 20 mg PO HS 03/17/21 11/23/21 History calcitriol 0.5 mcg capsule 0.5 mcg PO QAM 03/17/21 11/23/21 History mupirocin 2 % topical ointment 1 applic TOPICAL BID PRN 03/17/21 11/23/21 History cyclobenzaprine 10 mg tablet 10 mg PO TID PRN #30 tab 03/20/21 11/23/21 Rx gabapentin 100 mg capsule See Rx Instructions PO BID #120 cap 04/28/21 11/23/21 Rx celecoxib 100 mg capsule (Celebrex) 100 mg PO BID PRN #60 cap 09/11/21 11/23/21 Rx insulin aspart U-100 100 unit/mL See Rx Instructions SUBCUT TID #45 09/29/21 11/23/21 Rx (3 mL) subcutaneous pen ml insulin glargine 100 unit/mL (3 74 unit SUBCUT QAM ml 10/07/21 11/23/21 History mL) subcutaneous pen (Lantus Solostar U-100 Insulin) levothyroxine 200 mcg tablet 200 mcg PO DAILYBB 10/10/21 11/23/21 History levothyroxine 50 mcg tablet 50 mcg PO DAILYBB 10/10/21 11/23/21 History duloxetine 30 mg capsule,delayed 30 mg PO BID #60 cap 10/14/21 11/23/21 Rx release losartan 50 mg tablet 50 mg PO DAILY #30 tab 10/14/21 11/23/21 Rx Patient History Medical History Anxiety Asthma USES INHALER IN THE "SUMMER TIME" Diabetes mellitus, type 2 Diabetic peripheral neuropathy associated with type 2 diabetes mellitus HLD (hyperlipidemia) HTN (hypertension) Hx of colonic polyp Hx of gout Hypothyroidism Migraine Osteoarthritis Surgical History H/O foot surgery 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 FOOT (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 INTACT) H/O knee surgery RT KNEE X 5 History of carpal tunnel release RT/LEFT History of colonoscopy History of tonsillectomy Family History Brother Colonic polyp Mother Diabetes Myocardial infarction Asthma Heart disease Allergies Father No known health problems Uncle Hearing loss maternal Lung cancer maternal-smoker Other No family history of adverse response to anesthesia No family history of bleeding disorder Denies family history of Ovarian cancer Prostate cancer Breast cancer Colorectal cancer Social History Smoking Status: Never smoker Second Hand Exposure: No; Hx Alcohol Use: No Hx Substance Use: No Preferred Language: Danish Communication Ability: Effective Visual Impairment: No Limitations Hearing Ability: Normal Hat Former Required: No Beliefs That Will Affect Care: None marital status: Current Living Situation: Spouse Current Living Situation Comment: Lives with ex- current occupational status: employed 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 HEENT exam is negative. Neck is supple with full carotid upstrokes. There are no carotid bruits. Jugular venous pressure is flat at 90. There is no thyromegaly. Cardiovascular exam reveals a regular rhythm with a normal S1 and S2. No S3, S4, or murmurs are noted. Lungs are clear without rales, rhonchi, or wheezes. Abdomen is soft and nontender without bruits. Extremities reveal intact radial artery and posterior tibial pulses bilaterally. There is no peripheral edema. Results & Data ([facility]) Vital Signs (Past 12 Hours) Vital Signs Temp Pulse Pulse Resp BP Pulse Ox 11/24/21 10:50 36.8 C 56 L 15 144/80 H 98 11/24/21 07:20 37.0 C 57 L 16 134/80 98 11/24/21 07:00 52 L 11/24/21 04:30 36.6 C 52 L 18 149/78 H 97 11/24/21 01:24 63 11/24/21 00:52 36.7 C 63 18 158/85 H 99 Laboratory Results CBC notes hemoglobin 15.3, hematocrit 45.3, white count 8.9, platelet count [id number]. Electrolytes note a sodium of 138, potassium 4.0, chloride 102, bicarb 31, BUN 8, creatinine 0.79, glucose of 171. Initial troponin was undetectable less than 0.03 with a follow-up value 4.03. Diagnostic Findings EKG notes sinus bradycardia with a nonspecific ST abnormality. Echocardiogram notes normal left ventricular systolic function without wall motion abnormalities. There is borderline LVH and no significant valvular pathology. Chest x-ray shows no acute disease. PG Care Time/CCT Total # of Minutes Spent Total Time Spent with Patient: Total time spent is greater than 50% in coordination of care (as documented) at patient's floor/unit and/or counseling patient: Coding Level of Care Code 21303 Inpt Consult Level 5 Diagnoses Acute coronary syndromes I24.9 HTN (hypertension) I10 HLD (hyperlipidemia) E78.5
[2021-11-24 11:19] LABS: INR 0.9 (0.9-1.1); Prothrombin Time 9.6 Seconds (9.0-12.0)
[2021-11-24] MEDS ORDERED: LIDOCAINE 1% LOCAL 20 ML VIAL ONE (12:06)
[2021-11-24] MEDS ORDERED: MIDAZOLAM HCL 1 MG/ML 2ML VIAL ONE ×2 (12:13→12:49)
[2021-11-24] MEDS ORDERED: HEPARIN (PORCINE) 1000 UNIT/ML 10 ML (CATH LAB USE ONLY) ONE (12:13)
[2021-11-24] MEDS ORDERED: niCARdipine HCL INJ 2.5 MG/ML 10 ML AMP ONE (12:13)
[2021-11-24] MEDS ORDERED: fentaNYL citrate 100 MCG/2 ML VIAL ONE ×2 (12:13→12:50)
[2021-11-24] MEDS ORDERED: NITROGLYCERIN/D5W 100MCG/ML 20ML SYR ONE (12:14)
--- NOTE | 2021-11-24 12:25 | Pre Anesthesia Assessment ---
Date of Service November 24, 2021 Pre Sedation Assessment Vital Signs Temp Pulse Pulse Resp BP BP Pulse Ox 11/24/21 10:50 98.2 F 56 L 15 144/80 H 98 11/24/21 07:20 98.6 F 57 L 16 134/80 98 11/24/21 07:00 52 L 11/24/21 04:30 97.9 F 52 L 18 149/78 H 97 11/24/21 01:24 63 11/24/21 00:52 98.1 F 63 18 158/85 H 99 11/23/21 22:25 72 16 151/95 H 100 11/23/21 22:13 96 11/23/21 21:43 98.1 F 65 18 176/89 H 98 Cardiovascular RRR, no murmur, no edema Respiratory normal respiratory effort, lungs clear to auscultation Pre-Sedation Airway Assessment Smoking Status: Never smoker Hx Sleep Apnea: No Hx Difficult Intubation: No Short, Thick Neck: No Thyromental Distance: > or= 3.5 Finger Breadths Oral Cavity: + WNL Mallampati Class: III ASA: ASA3 NPO Status Date of Last Intake of Fluids: 11/24/21 Time of Last Intake of Fluids: 08:00 Last Oral Intake of Fluids Comment: sip with meds Date of Last Intake of Solid Food: 11/23/21 Time of Last Intake of Solid Foods: 18:30 Procedure Planning Contraindications for Sedation: none Current Medications Reviewed: Yes Notes The planned sedation has been discussed with the patient. Informed Consent was obtained. I have identified the patient, determined the appropriateness of sedation and have assessed the patient immediately prior to the procedure. All medicine(s) and interventions are by my order.
--- NOTE | 2021-11-24 12:53 | Electrocardiogram Report ---
Test Reason : Blood Pressure : / mmHG Vent. Rate : 063 BPM Atrial Rate : 063 BPM P-R Int : 140 ms QRS Dur : 110 ms QT Int : 384 ms P-R-T Axes : 036 020 -02 degrees QTc Int : 392 ms Normal sinus rhythm Normal ECG When compared with ECG of 23-NOV-2021 21:53, (unconfirmed) No significant change was found Confirmed by Bello Gregorio ([id number]) on 11/24/2021 12:53:22 PM Referred By: REFERRED SELF Confirmed By:Bello Gregorio
--- NOTE | 2021-11-24 12:53 | Electrocardiogram Report ---
Test Reason : Blood Pressure : / mmHG Vent. Rate : 059 BPM Atrial Rate : 059 BPM P-R Int : 138 ms QRS Dur : 108 ms QT Int : 386 ms P-R-T Axes : 041 033 003 degrees QTc Int : 382 ms Sinus bradycardia Otherwise normal ECG When compared with ECG of 24-APR-2019 08:21, QT has shortened Confirmed by Bello Gregorio ([id number]) on 11/24/2021 12:53:13 PM Referred By: REFERRED SELF Confirmed By:Bello Gregorio
--- NOTE | 2021-11-24 12:57 | Electrocardiogram Report ---
Test Reason : Blood Pressure : / mmHG Vent. Rate : 061 BPM Atrial Rate : 061 BPM P-R Int : 148 ms QRS Dur : 094 ms QT Int : 394 ms P-R-T Axes : 031 029 052 degrees QTc Int : 396 ms Normal sinus rhythm Nonspecific ST abnormality Abnormal ECG When compared with ECG of 23-NOV-2021 21:56, (unconfirmed) No significant change Confirmed by Bello Gregorio ([id number]) on 11/24/2021 12:56:33 PM Referred By: REFERRED SELF Confirmed By:Bello Gregorio
--- NOTE | 2021-11-24 12:59 | Electrocardiogram Report ---
Test Reason : Blood Pressure : / mmHG Vent. Rate : 050 BPM Atrial Rate : 050 BPM P-R Int : 134 ms QRS Dur : 108 ms QT Int : 402 ms P-R-T Axes : 017 023 037 degrees QTc Int : 366 ms Poor data quality, interpretation may be adversely affected Sinus bradycardia Nonspecific ST abnormality Abnormal ECG When compared with ECG of 23-NOV-2021 22:43, (unconfirmed) No significant change was found Confirmed by Bello Gregorio ([id number]) on 11/24/2021 12:59:24 PM Referred By: REFERRED SELF Confirmed By:Bello Gregorio
[2021-11-24] MEDS ORDERED: TICAGRELOR 90 MG TAB PO ONE (13:18)
--- NOTE | 2021-11-24 13:30 | Post Anesthesia Assessment ---
Date of Service November 24, 2021 Post Sedation Assessment Vital Signs Temp Pulse Pulse Resp BP BP Pulse Ox 11/24/21 13:21 68 16 117/68 98 11/24/21 10:50 98.2 F 56 L 15 144/80 H 98 11/24/21 07:20 98.6 F 57 L 16 134/80 98 11/24/21 07:00 52 L 11/24/21 04:30 97.9 F 52 L 18 149/78 H 97 11/24/21 01:24 63 11/24/21 00:52 98.1 F 63 18 158/85 H 99 11/23/21 22:25 72 16 151/95 H 100 11/23/21 22:13 96 11/23/21 21:43 98.1 F 65 18 176/89 H 98 Recovery Score Activity: Moves 4 extremities Respiration: Deep Breath/Cough Circulation: +/-20% PreAnes Value Consciousness: Fully Awake Oxygen Saturation: > 92% On Room Air Post Anesthesia Score: 10 Discharge Sedation Level of Care: Fast Track Phase II Post Sedation Plan On clinical assessment, the patient appears to have tolerated the sedation without complications. Patient is recovering as anticipated. Patient will continue to be monitored by nursing and may be discharged when sedation discharge criteria are met per below protocol. Upon Completions of procedure up to 15 minutes continue every 5 minute vital signs and the P.A.R. score; then discharge to a Phase I or Fast Track to Phase II per the following guidelines: * Discharge Patient to appropriate Phase II area if PAR is 8 or greater or return to pre- procedure baseline. The post - procedure orders will be as directed. * If PAR score is less than 8 or not return to pre-procedure baseline then patient will follow Phase I monitoring till PAR is reached for Phase II. The Phase I may be done in procedure room or may call to secure a Phase I area. * If naloxone or flumazenil are used for reversal, hold in Phase I for continued monitoring from when last reversal dose was given for a minimum of 60 minutes or longer pending the nurse and/or physician discretion of patient condition before discharge to Phase II. Please call the Sedation Physician to re-evaluate and complete post-note for discharge to Phase II area. Do NOT discharge from procedure sedation or Phase 1 until post- sedation evaluation note is complete by procedure /sedation MD Sedation Discharge Instructions to be given to the patient at discharge to home.
[2021-11-24] MEDS: ASPIRIN 81 MG ECTAB PO SCH (13:52)
[2021-11-24] MEDS ORDERED: ACETAMINOPHEN 325 MG TAB PO PRN (14:36)
[2021-11-24] MEDS ORDERED: SODIUM CHLORIDE 0.9% 1000ML 1,000 ML IV SCH (14:45)
--- NOTE | 2021-11-24 14:56 | Cardiac Catheterization ---
[facility] Data: Vp Product Management Cardiac Status Clinical evaluation leading to the procedure CAD Presenation: Non STEMI Anginal Classification: CCS IV Diagnostic Physicians Name: Valentin Miller MD Status: Elective Closure Device Percutaneous Entry Location: Radial Closure Device: Radial Band Recommendations: PCI without planned CABG PCI Indication: PCI for high risk Non-DINAH Lesion Segment Name: Distal RCA Culprit Artery: Yes Stenosis Prior to Rx (%): 100 Chronic Total Occlusion: No IVUS: No FFR: No Pre-Procedure TANA Flow: 0 Previously Treated Lesion: No Lesion Complexity: Non-High/Non-C Lesion Length (mm): 30 Thrombus Present: No Bifurcation Lesion: No Guidewire Across Lesion: Stenosis Post-Procedure (%): 0 Post-Procedure TANA Flow: 3 Devices(s) Deployed: Yes Yes Intraprocedure Events Significant Disection: No Perforation: No Cardiac Cath Procedure Full Procedure Date November 24, 2021 Pre-Procedure Diagnosis Pre-Procedure Diagnosis: Non STEMI AUC Score AUC Score: 8 Post-Procedure Diagnosis Post-Procedure Diagnosis: Severe CAD, Successful PCI and Normal Intracardiac Pressures Procedure(s) Performed Procedure(s) Performed: Coronary Angiography, Left Heart Cath and Drug Eluting Stent Entry Level Lab Technician Valentin Miller MD Physicist Solid State(s) Jorge Estimated Blood Loss Estimated Blood Loss: 15 Medication(s) Medication(s): Fentanyl, Heparin, Lidocaine 1%, Nicardipine, Nitroglycerin and Versed Medication(s): Ticagrelor Summary of Findings Indication: High risk NSTEMI Access: 6 Fr right radial artery Catheters: [place], JR4 guide Findings: LM -large caliber, no significant disease LAD -medium caliber, distal vessel extends around apex. No significant disease. Ramusmedium caliber, no significant disease Circumflex -medium caliber, 30% mid segment disease. Medium OM 2 without significant disease. RCA -dominant, medium caliber, 40% mid segment stenosis, 100% acute distal occlusion LVEDP -11 -- PCI -- Antithrombotic therapy: Heparin, ticagrelor Procedure: RCA cannulated with JR4 guide Calculator Operator 50 wire passed across lesion into distal vessel Distal RCA lesion predilated with 2.5 compliant balloon Dilated lesion stented with 2.75 x 28 mm Xience drug-eluting stent Stent post-dilated with 3.0 noncompliant balloon IC vasodilators administered for spasm Moderate residual stenosis just distal to initial stent Second LENNOX (2.5 x 12 mm Xience) placed to distal RCA, overlapping distal aspect of initial stent Stent postdilated with stent balloon to high atmospheres Post procedure TANA 3 flow, stents well expanded with minimal residual stenosis and no apparent cardiac complications. Arterial Closure: TR band Summary: 1. Acute 100% distal RCA occlusion 2. Mild to moderate nonculprit coronary artery disease 40% mid RCA - 30% mid circumflex 3. Normal intracardiac filling pressure 4. Successful PCI of distal RCA with 2 overlapping drug-eluting stents Recommendations: To PCU for continued monitoring Loaded with ticagrelor 180 mg in Vp Product Management Continue dual-antiplatelet therapy for at least 1 jesse Continue statin, and ASCVD risk factor modification Consult cardiac Rehab Hemodynamics Rest Ao:: 135/67/115 Final Ao: 93/53/72 LV: 117/11 Recommendations Recommendations: PCI without planned CABG Specimens Specimens: None Radiation Exposure (mGy) 1951 Contrast (mls) 85 Fluids (cc crystalloids) Fluids (cc crystalloids): 125 Drains Drains: None Anesthesia Moderate 3620-8370 Procedural Complication(s) None Disposition PCU I attest to the content of the Intraoperative Record and any orders documented therein. Any exceptions are noted below. [facility] Card Cath Procedure Codes Cardiac Catheterization Procedure 1: Cardiovascular Cath Procedures: 32473 Coronaries and LHC (+/-LV) Moderate Sedation Procedure 1: Sedation/Anesthesia: 30689 Mod Sedation by the same physician;Init15 Min Child Age 5 & Up Procedure 2: Sedation/Anesthesia: 84658 Mod Sedation by the same physician; Ea [id number] Minutes Stenting Procedure 1: Cardiovascular Stent Procedures: 08993 Perc transluminal revascularization of acute sub/total occl, aMI PG Care Time/CCT Total # of Minutes Spent Total Time Spent with Patient: Total time spent is greater than 50% in coordination of care (as documented) at patient's floor/unit and/or counseling patient:
[2021-11-24] MEDS: METOPROLOL TARTRATE 25 MG TAB PO SCH (20:58)
[2021-11-24] MEDS ORDERED: ATORVASTATIN 20 MG TAB PO SCH (21:00)
--- NOTE | 2021-11-24 21:18 | Hospitalist Progress Note ---
Date of Service November 24, 2021 Assessment & Plan (1) NSTEMI (non-ST elevated myocardial infarction): Plan: Trop increased to 4. Added heparin drip. Consulted cardio for possible cath. Cancelled stress test. Trop peaked at 33. Patient had cardiac cath Summary: 1. Acute 100% distal RCA occlusion 2. Mild to moderate nonculprit coronary artery disease 40% mid RCA - 30% mid circumflex 3. Normal intracardiac filling pressure 4. Successful PCI of distal RCA with 2 overlapping drug-eluting stents Recommendations: To PCU for continued monitoring Loaded with ticagrelor 180 mg in Sagger Preparer Continue dual-antiplatelet therapy for at least 1 jesse Continue statin, and ASCVD risk factor modification Consult cardiac Rehab Stopped heparin drip (2) Chest pain: Plan: 51yo male with history of DM, HTN, HLP and FHx of CAD presenting with acute onset substernal chest pain at 20:00 tonight. Resolved with ASA and Nitro. Troponin x 1 negative. Serial EKGs with subtle ST changes. -Observation to medical with telemetry as above. (3) HTN (hypertension): Plan: Chronic. Blood pressure mildly elevated at present, 151/95 -Continue Losartan 50mg po daily -Continue to monitor (4) HLD (hyperlipidemia): Plan: Chronic. Last lipid panel from 10/07/21. Total cholesterol of 125, LDL=72, VLDL=14, HDL=39 and TG of 72 -Continue Atorvastatin 20mg po daily -May need to increase to high intensity on DC pending findings (5) Insulin dependent diabetes mellitus: Plan: Patient with poorly controlled DM at present with associated peripheral neuropathy. Last NfiY5F=95.3 on 10/07/21. He reports compliance with his medications. He is on Lantus 65u daily in AM and Novolog sliding scale. Elevated blood sugar at present at 266. Patient follows with [facility]. -Will give 5u IV insulin now -Lantus 25u BID -ISS -Goal blood sugar 100 -140 -Continue Neurontin and Cymbalta for neuropathy (6) Hypothyroidism: Plan: Chronic. TSH within normal limits on 10/07/21 at 1.6 -Continue Synthroid 200mcg daily (7) Asthma: Plan: Chronic. Well controlled. No cough or wheeze. Some SOB with chest pain reported, most likely unrelated to asthma -Albuterol as needed (8) Depression: Plan: Chronic. Well controlled on medications -Continue Duloxetine 30mg po BID -Continue Bupropion 100mg po BID (9) Secondary hyperparathyroidism: Plan: Chronic -Continue Calcitriol 0.5mg po qAM Admission and Anticipated Discharge Date Admission Date: November 23, 2021 Subjective Patient reports feeling wellafter cardiac cath. Review of Systems Review of Systems: All systems reviewed & are unremarkable except as noted in HPI & below Physical Exam Physical Exam: General: patient resting comfortably, NAD, non-toxic in appearance, AA&O x 4 Skin: warm, dry, intact, no rashes or lesions HEENT: NC/AT, PERRL, EOMI, anicteric sclera, conjunctiva without injection, external ear normal to inspection and nontender, nares patent, moist mucus membranes, dentition intact, no oropharyngeal lesions, neck supple, trachea midline, no LAD, no thyromegaly, no JVD Heart: +S1/S2, regular, no m/r/g, no reproducible chest wall pain with palpation Lungs: equal air entry bilaterally, no rales/rhonchi/wheezes Abd: +BS, soft, NT/ND, no masses/organomegaly/ascites, no epigastric pain Ext: warm, 2+ pulses in UE/LE bilaterally, no clubbing/cyanosis or edema Neuro: nonfocal, patient AA&O x 4, speech intact, no facial droop, moving all extremities on command with equal strength 5/5 Results & Data Results & Data ([facility]) Vital Signs (Past 12 Hours) Vital Signs Temp Pulse Resp BP BP Pulse Ox 11/24/21 20:04 36.4 C L 52 L 18 115/73 95 11/24/21 18:00 36.8 C 62 18 125/73 95 11/24/21 16:00 36.4 C L 82 20 113/68 97 11/24/21 15:48 36.6 C 78 18 150/85 H 97 11/24/21 15:00 53 L 20 114/72 95 11/24/21 14:25 36.4 C L 52 L 16 117/64 96 11/24/21 13:32 68 16 116/82 99 11/24/21 13:21 68 16 117/68 98 11/24/21 10:50 36.8 C 56 L 15 144/80 H 98 PG Care Time/CCT Total # of Minutes Spent Total Time Spent with Patient: Total time spent is greater than 50% in coordination of care (as documented) at patient's floor/unit and/or counseling patient: Coding Level of Care Code 05418 Subseq Hosp Care Lvl 3 Diagnoses Chest pain R07.9 Chest pain type: unspecified HTN (hypertension) I10 HLD (hyperlipidemia) E78.5 Insulin dependent diabetes mellitus E11.9; Z79.4 Hypothyroidism E03.9 Asthma J45.909 Depression F32.9 Secondary hyperparathyroidism N25.81 NSTEMI (non-ST elevated myocardial infarction) I21.4 Time Spent (min) 35 (1) Chest pain Chest pain type: unspecified Qualified Code(s): R07.9 - Chest pain, unspecified
[2021-11-25] MEDS: LEVOTHYROXINE SODIUM 50 MCG TABLET PO SCH (06:00)
[2021-11-25] MEDS: LEVOTHYROXINE SODIUM 200 MCG TABLET PO SCH (06:00)
[2021-11-25] MEDS: INSULIN ASPART PER UNIT SC SCH (08:46)
[2021-11-25] MEDS: ASPIRIN 81 MG ECTAB PO SCH (08:56)
[2021-11-25] MEDS: DULoxetine HCL 30 MG CAP PO SCH (08:56)
[2021-11-25] MEDS: GABAPENTIN 100 MG CAP PO SCH (08:56)
[2021-11-25] MEDS: buPROPion SR 100 MG TABCR PO SCH (08:56)
[2021-11-25] MEDS: CALCITRIOL 0.25 MCG CAPSULE PO SCH (08:56)
[2021-11-25] MEDS: METOPROLOL TARTRATE 25 MG TAB PO SCH (08:57)
[2021-11-25] MEDS: INSULIN GLARGINE SOLOSTAR 100 UNITS/ML 3 ML PEN SC SCH (08:59)
[2021-11-25] MEDS ORDERED: TICAGRELOR 90 MG TAB PO SCH (09:00)
[2021-11-25] MEDS: LOSARTAN POTASSIUM 50 MG TAB PO SCH (10:19)
--- NOTE | 2021-11-25 11:00 | Cardiology Progress Note ---
Date of Service November 25, 2021 Assessment & Plan (1) Acute coronary syndromes: Plan: -troponin peaked at 33.55. -cardiac catheterization revealed a culprit lesion in the distal RCA (100% acute occlusion). -overlapping Xience LENNOX deployed (2.75 x 28, 2.5 x 12). -nonobstructive disease otherwise (40% mRCA, 30% mLCx). -continue aspirin and Brilinta. -consider addition of low-dose metoprolol tartrate (bradycardia may limit use). -increase atorvastatin dose to at least 40 mg q.h.s. -consider cardiac rehab as an outpatient. -stable for hospital discharge. -follow-up with me in 1-2 weeks. (2) HTN (hypertension): Plan: -adequate control on current regimen. (3) HLD (hyperlipidemia): Plan: -increase dose of atorvastatin to at least 40 mg q.h.s. Admission and Anticipated Discharge Date Admission Date: November 24, 2021 Subjective The patient is resting comfortably in bed without complaints of chest pain or dyspnea. He is anxious for hospital discharge. Physical Exam Physical Exam: In general this is a well-developed well-nourished white male in no acute distress. HEENT exam is negative. Neck is supple with full carotid upstrokes. There are no carotid bruits. Jugular venous pressure is flat at 90. There is no thyromegaly. Cardiovascular exam reveals a regular rhythm with a normal S1 and S2. No S3, S4, or murmurs are noted. Lungs are clear without rales, rhonchi, or wheezes. Abdomen is soft and nontender without brui ts. Extremities reveal a dressing over the right radial artery at the wrist. No associated bruits. There is no peripheral edema. Results & Data ([facility]) Vital Signs (Past 12 Hours) Vital Signs Temp Pulse Pulse Resp BP Pulse Ox 11/25/21 07:00 36.8 C 56 L 18 108/69 96 11/25/21 03:40 36.5 C 59 L 18 113/68 96 11/24/21 23:18 36.3 C L 55 L 18 130/72 96 11/24/21 23:00 52 L PG Care Time/CCT Total # of Minutes Spent Total Time Spent with Patient: Total time spent is greater than 50% in coordination of care (as documented) at patient's floor/unit and/or counseling patient: Coding Level of Care Code 62289 Subseq Hosp Care Lvl 3 Diagnoses Acute coronary syndromes I24.9 HTN (hypertension) I10 HLD (hyperlipidemia) E78.5
--- NOTE | 2021-11-29 11:32 | Discharge Summary ---
Date of Service November 25, 2021 Admission HPI Per Admitting Provider Logan Mendez is a pleasant 51yo male with history of poorly controlled DM, HTN, HLP and FHx of premature CAD (Mother with first TN in her 50's, CABG in 60's and maternal cousin with MIs in their 40's) presenting with chest pain. Patient was at [facility] around 20:00 when he developed acute onset substernal chest pain. 7/10 in severity. Squeezing pressure with radiation through to his back and some radiation and tingling in his right arm. He had some associated SOB as well. Denies diaphoresis, nausea, lightheadedness. Patient was given ASA 324mg and Nitro 0.4mg with resolution of chest pain. Now is chest pain free. He has no known history of cardiac disease, CAD, CHF or Arrhythmia. He has had a stress test many years ago when he was 27yo which was unremarkable. He has never had a cardiac catheterization. 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 He denies exertional chest discomfort or SOB. He does not exercise otherwise. No additional complaints a this time. ER Course: ASA 324, Nitro Principal Diagnosis NSTEMI Discharge Exam General: patient awake, sitting comfortasbly in bed, NAD, non-toxic in appearance, AA&O x 4 Skin: warm, dry, intact, no rashes or lesions HEENT: NC/AT, PERRL, EOMI, anicteric sclera, conjunctiva without injection, external ear normal to inspection and nontender, nares patent, moist mucus membranes, dentition intact, no oropharyngeal lesions, neck supple, trachea midline, no LAD, no thyromegaly, no JVD Heart: +S1/S2, regular, no m/r/g, no reproducible chest wall pain with palpation Lungs: equal air entry bilaterally, no rales/rhonchi/wheezes Abd: +BS, soft, NT/ND, no masses/organomegaly/ascites, no epigastric pain Ext: warm, 2+ pulses in UE/LE bilaterally, no clubbing/cyanosis or edema Neuro: nonfocal, patient AA&O x 4, speech intact, no facial droop, moving all extremities on command with equal strength 5/5 Discharge Data Allergies Allergy/AdvReac Type Severity Reaction Status Date / Time No Known Allergies Allergy Verified 11/23/21 22:04 Consultations 11/23/21 23:06 ED Decision to Admit Stat 11/24/21 09:13 Consult Cardiology Routine 11/24/21 14:41 Consult Cardiac Rehabilitation Routine Procedures Performed Operation Date: 11/24/21 13:00 Actual Procedures p Cath, Left with Cors and Vent - Keagan Miller MD s Cineradiography w/Routine Exam - Keagan Miller MD s Drug Eluting Stent SGl Vessel - Keagan Miller MD Ordered Studies 11/24/21 11:08 CL Cath Imgs for PACS use only Routine Hospital Course (1) NSTEMI (non-ST elevated myocardial infarction): Trop peaked at 33. was treated on IV heparin drip. Consulted cardio fo cardiac cath. Cancelled stress test due to elevated trop Trop peaked at 33. Patient had cardiac cath Summary: 1. Acute 100% distal RCA occlusion 2. Mild to moderate nonculprit coronary artery disease 40% mid RCA - 30% mid circumflex 3. Normal intracardiac filling pressure 4. Successful PCI of distal RCA with 2 overlapping drug-eluting stents Loaded with ticagrelor 180 mg in Sales Strategy Manager Continue dual-antiplatelet therapy for at least 1 jesse Continue HIGH INTENSITY statin, and ASCVD risk factor modification Consult cardiac Rehab Cardio recommended to hold off beta ricardo due to bradycardia. Will continue ARB. discharged the following morning. (2) Chest pain: 51yo male with history of DM, HTN, HLP and FHx of CAD presenting with acute onset substernal chest pain at 20:00 tonight. Resolved with ASA and Nitro. Troponin x 1 negative. Serial EKGs with subtle ST changes. -Observation to medical with telemetry as above. (3) HTN (hypertension): Chronic. Blood pressure mildly elevated at present, 151/95 -Continue Losartan 50mg po daily -Continue to monitor (4) HLD (hyperlipidemia): Chronic. Last lipid panel from 10/07/21. Total cholesterol of 125, LDL=72, VLDL=14, HDL=39 and TG of 72 -Continue HIGH INTENSITY STATIN at discharge (5) Insulin dependent diabetes mellitus: Patient with poorly controlled DM at present with associated peripheral neuropathy. Last ZcmZ1A=23.3 on 10/07/21. He reports compliance with his medications. He is on Lantus 65u daily in AM and Novolog sliding scale. Elevated blood sugar at present at 266. Patient follows with [facility]. -Will give 5u IV insulin now -Lantus 25u BID -ISS -Goal blood sugar 100 -140 -Continue Neurontin and Cymbalta for neuropathy (6) Hypothyroidism: Chronic. TSH within normal limits on 10/07/21 at 1.6 -Continue Synthroid 200mcg daily (7) Asthma: Chronic. Well controlled. No cough or wheeze. Some SOB with chest pain reported, most likely unrelated to asthma -Albuterol as needed (8) Depression: Chronic. Well controlled on medications -Continue Duloxetine 30mg po BID -Continue Bupropion 100mg po BID (9) Secondary hyperparathyroidism: Chronic -Continue Calcitriol 0.5mg po qAM Total Time Total Time Spent Total Time Spent (In Minutes): 32 Discharge Plan Discharge Items Patient Disposition: Home - Self-Care Reason For Visit: NSTEMI Discharge Diagnosis: NSTEMI Activity: Resume your previous activity Non-emergency contact: Primary Care Provider Call non-emergency contact if: you have any medication questions Follow-up/Referrals: Liam Schroeder III, CRNP [Primary Care Provider] - 12/08/21 4:00 pm (Please follow up with [facility] Dove on Wednesday12/08/21 at 4:00 pm. Please arrive to the office at 3:45 pm for your appointment. If you are unable to keep this appointment, please call the office to reschedule at [phone].) Diet: Carb Consistent or DM2 and Heart Healthy Addtl Attending Provider Instructions: Home Care: * Take your medications exactly as directed. Don't skip doses. * Remember that recovery after a heart attack takes time. Plan to rest for at lease 4-8 weeks while you recover. Then return to normal activity when your doctor says it's okay. * Ask your doctor about joining a heart rehabilitation program. * Tell your doctor if you are feeling depressed. Feelings of sadness are common after a heart attack, but it is important that you speak to someone if you are feeling overwhelmed by these feelings. * If you are having chest pain, call 911 for an ambulance. Do NOT drive yourself to the hospital. * Ask your family members to learn CPR. * Learn to take your own blood pressure and pulse. Keep a record of your results. Ask your doctor when you should seek emergency medical attention. He or she will tell you which blood pressure reading is dangerous. Lifestyle Changes: * Maintain a healthy weight. Get help to lose any extra pounds. * Cut back on salt. * Limit canned, dried, packaged, and fast foods. * Don't add salt to your food. * Season foods with herbs instead of salt when you cook. * Break the smoking habit. Enroll in a stop-smoking program to improve your aysha nces of success. * Limit fatty foods. * Ask your doctor about having your lipid levels checked regularly. * Build up your activity according to your doctor's recommendation. * Ask your doctor when it's okay to resume sexual activity. * Tell your doctor about any erectile dysfunction (ED) medication you are taking. Some ED medications are not safe if you take certain heart medications. * Try to manage stress. Follow Up: It is important for you to keep your follow up appointments with your medical provider. Pending Studies at Discharge: No Stand-Alone Forms: My [facility], Smoking Cessation Medications and DC Order Prescriptions: New Brilinta 90 mg Tablet 90 mg PO BID Qty: 60 RF: 0 nitroglycerin [Nitrostat] 0.4 mg Tablet, Sublingual 0.4 mg sublingual Q5M PRN (Reason: chest pain) Qty: 3 RF: 0 atorvastatin 40 mg tablet 40 mg PO HS Qty: 30 RF: 0 acetaminophen 325 mg Tablet 650 mg PO Q4H PRN (Reason: pain) Qty: 30 RF: 0 aspirin 81 mg Tablet,Delayed Release (Dr/Ec) 81 mg PO QAM Qty: 30 RF: 0 Continued albuterol sulfate [Ventolin HFA] 90 mcg/actuation HFA aerosol inhaler 1 - 2 puffs INHALATION Q4H PRN (Reason: shortness of breath or wheezing) Qty: 18 RF: 11 sildenafil [Viagra] 100 mg tablet 100 mg PO DAILY PRN (Reason: sexual activity) Qty: 6 RF: 5 gabapentin 100 mg capsule See Rx Instructions PO BID Qty: 120 RF: 5 insulin aspart U-100 100 unit/mL (3 mL) insulin pen See Rx Instructions subcut TID Qty: 45 RF: 5 duloxetine 30 mg capsule,delayed release(DR/EC) 30 mg PO BID Qty: 60 RF: 5 losartan 50 mg tablet 50 mg PO DAILY Qty: 30 RF: 2 cyclobenzaprine 10 mg tablet 10 mg PO TID PRN (Reason: muscle spasm) Qty: 30 RF: 0 bupropion HCl [Wellbutrin SR] 100 mg tablet sustained-release 12 hr 100 mg PO BID Qty: 60 RF: 5 cyanocobalamin (vitamin B-12) [Vitamin B-12] 1,000 mcg Tablet 1,000 mcg PO QAM RF: 0 calcitriol 0.5 mcg capsule 0.5 mcg PO QAM RF: 0 mupirocin 2 % ointment 1 applic topical BID PRN (Reason: Skin Irritation) RF: 0 levothyroxine 50 mcg tablet 50 mcg PO DAILYBB RF: 0 levothyroxine 200 mcg tablet 200 mcg PO DAILYBB RF: 0 Discontinued celecoxib [Celebrex] 100 mg capsule 100 mg PO BID PRN (Reason: Pain) Qty: 60 RF: 2 atorvastatin 20 mg tablet 20 mg PO HS RF: 0 No Action Lantus Solostar U-100 Insulin 100 unit/mL (3 mL) insulin pen 74 unit SUBCUT QAM Qty: 75 RF: 3 metoprolol succinate 25 mg tablet extended release 24 hr 12.5 mg PO DAILY Qty: 30 RF: 2 Discharge Orders: Discharge Order (Routine); Ordered 11/25/21 Ordered By: Erik Keating Admission Data Admit Date/Time: 11/24/21 21:10 Attending Provider: Erik Keating Admit Provider: Ashli Park Primary Care Provider: Liam Schroeder III Other Providers: Ashli Park ; Israel Reyes ; Fabian Cope ; Bello Gregorio ; Neal De La Cruz ; Bridger Pena Jr ; Ralf Ang ; Tina Brito ; Paola Smith ; Keagan Miller ; Valentin Jones ; Enoc Willis ; Barbara Dorman ; Margaux Loaiza ; Higinio Portillo ; Xavier Diego ; Kurt Olivia Other Interventions: Discharge Summary Assessment (RN) Last Done: 11/25/21 12:13 Coding Level of Care Code D/C DAY MANAGEMENT >30 MINS Diagnoses NSTEMI (non-ST elevated myocardial infarction) I21.4 Chest pain R07.9 Chest pain type: unspecified HTN (hypertension) I10 HLD (hyperlipidemia) E78.5 Insulin dependent diabetes mellitus E11.9; Z79.4 Hypothyroidism E03.9 Asthma J45.909 Depression F32.9 Secondary hyperparathyroidism N25.81
== END 2021-11-25 12:47 | disposition home or self-care (01) | DRG 247 ==
LOC: ED 21:42 → 2W 21:42 → SUATTDRO 23:16 → 2W 11-24 00:12 → 2S 11-24 13:44